=== PATIENT | female | born 1945 | race American Indian/Alaskan Native ===

== ENCOUNTER 2016-06-10 08:40 | Emergency (ER) | payer MEDICARE, OTHER ==
[2016-06-10 08:59] VITALS: PULSE 81; RESP 20
[2016-06-10 10:36] VITALS: BP 175/90; TEMP 97.8; O2SAT 98
--- NOTE | 2016-06-10 10:54 | C.PDOC ---
History Of Present Illness 71 y/o female presents to the ED with complains of chronic right knee pain with exacerbation over the past week. Pt denies fall or new trauma. Pt is scheduled to have surgery in future for cartilage replacement. Pt denies numbness, weakness, fever or any other complaints. Chief Complaint (Nursing): Back Pain History Per: Patient History/Exam Limitations: no limitations Onset/Duration Of Symptoms: Days Current Symptoms Are (Timing): Still Present Quality Of Discomfort: "Pain" Severity: Moderate Previous Symptoms: Chronic Pain Associated Symptoms: None Recent travel outside of the [place]: No Past Medical History Reviewed: Historical Data, Nursing Documentation, Vital Signs Vital Signs: Last Vital Signs Temp 97.8 F 06/10/16 10:34 Pulse 81 06/10/16 10:34 Resp 20 06/10/16 10:34 BP 175/90 H 06/10/16 10:34 Pulse Ox 98 06/10/16 10:55 - Medical History PMH: Bronchitis, COPD, HTN - [facility] Procedures CYSTOCELE REPAIR (09/14/97) CYSTOGRAM NEC (07/06/97) CYSTOMETROGRAM (07/06/97) CYSTOSCOPY NEC (09/14/97) OTHER CYSTOSTOMY (09/14/97) SUPRAPUBIC SLING OP (09/14/97) Family History: States: Unknown Family Hx - Social History Hx Alcohol Use: No Hx Substance Use: No - Immunization History Hx Tetanus Toxoid Vaccination: Yes Hx Influenza Vaccination: Yes Hx Pneumococcal Vaccination: Yes Review Of Systems Except As Marked, All Systems Reviewed And Found Negative. Constitutional: Negative for: Fever Musculoskeletal: Positive for: Other (right knee pain) Neurological: Negative for: Weakness, Numbness Physical Exam - Physical Exam Appears: Non-toxic, No Acute Distress Skin: Warm, Dry, No Rash Head: Atraumatic, Normacephalic Extremity: Capillary Refill (<2 seconds), No Deformity, Other (chronic swollen right knee joint, creppitus noted with flexion and extension) Pulses: Right Dorsalis Pedis: Normal Neurological/Psych: Oriented x3, Normal Speech, Normal Motor, Normal Sensation ED Course And Treatment O2 Sat by Pulse Oximetry: 98 (on room air) Pulse Ox Interpretation: Normal Disposition - [facility] - Disposition: HOME/ ROUTINE Disposition Time: 09:30 Condition: GOOD Additional Instructions: Thank you for letting us take care of you today. Your provider was Dr. Young. You were treated for chronic knee pain. The emergency medical care you received today was directed at your acute symptoms. If you were prescribed any medication, please fill it and take as directed. It may take several days for your symptoms to resolve. Return to the Emergency Department if your symptoms worsen, do not improve, or if you have any other problems. Please contact your doctor or call one of the physicians/clinics you have been referred to that are listed on the Patient Visit Information form that is included in your discharge packet. Bring any paperwork you were given at discharge with you along with any medications you are taking to your follow up visit. Our treatment cannot replace ongoing medical care by a primary care provider (PCP) outside of the emergency department. Thank you for allowing the [facility] team to be part of your care today. Follow up with your doctor on Sunday as scheduled for re-evaluation. Prescriptions: Cyclobenzaprine [Cyclobenzaprine HCl] 10 mg PO Q8 PRN #20 tab PRN Reason: Muscle Spasm Ibuprofen [Motrin] 600 mg PO Q6 PRN #20 tab PRN Reason: Pain, Moderate (4-7) Instructions: Knee Pain (ED) - Clinical Impression Clinical Impression: Right knee pain - Scribe Statement The provider has reviewed the documentation as recorded by the Brenden Duarte Provider Attestation: All medical record entries made by the Brenden were at my direction and personally dictated by me. I have reviewed the chart and agree that the record accurately reflects my personal performance of the history, physical exam, medical decision making, and the department course for this patient. I have also personally directed, reviewed, and agree with the discharge instructions and disposition.
== END 2016-06-10 10:33 | disposition home or self-care (01) ==
LOC: C.ER 08:40
DX: M25.561 Pain in right knee (principal)
CPT/HCPCS: 96372; 99283; J1885

== ENCOUNTER 2017-04-11 08:23 | Inpatient (IN) | payer MEDICARE ==
[2017-03-16 09:10] VITALS: BMI 27.3
[2017-04-11] MEDS ORDERED: Propofol 10 mg/ml Inj (20 ML) ONE ×2 (12:22→12:56)
[2017-04-11] MEDS ORDERED: Rocuronium 10 mg/ml (5 ml) ONE ×2 (12:30→12:57)
[2017-04-11] MEDS ORDERED: Bupivacaine Liposomal Inj 20 ml INFIL ONE (12:32)
[2017-04-11] MEDS ORDERED: ceFAZolin IV 2 gm in Dextrose 2 GM/50 ML BAG IVPB ONE (12:37)
[2017-04-11] MEDS ORDERED: Sodium Chloride 0.9% 60 ML IV ONE (12:37)
[2017-04-11] MEDS ORDERED: Bacitracin 150,000 UNIT in Sodium Chloride 0.9% Irrig 3,000 ML IR SCH (12:45)
[2017-04-11] MEDS ORDERED: Midazolam 2 MG/2 ML VIAL ONE (12:56)
[2017-04-11] MEDS ORDERED: ceFAZolin IV 1 gm in Dextrose 1 GM/50 ML BAG IVPB SCH (13:00)
[2017-04-11] MEDS ORDERED: Sodium Chloride 0.9% 1,000 ML IV SCH (13:00)
[2017-04-11] MEDS ORDERED: Morphine 4 MG/ML VIAL ONE (13:54)
[2017-04-11] MEDS ORDERED: Neostigmine Methylsulfate 3mg/3ml Syringe IV ONE (15:32)
[2017-04-11] MEDS ORDERED: Bupivacaine HCl 0.25% PF (10 ml) Inj ONE ×2 (15:57→15:58)
--- NOTE | 2017-04-11 17:18 | PCM.ANESB7 ---
Adductor Canal Block - Adductor Canal Block Date of Procedure: 04/11/17 Anesthiologist: jordan Pre-Procedure Diagnosis: right knee oa` Post-Procedure Diagnosis: same Procedure Performed: Adductor Canal Block Right - Procedure Adductor Canal Block: The procedure was explained to the patient that it is for the post-operative pain management. Consent was obtained after a thorough discussion with the patient regarding the benefits and possible complications of local anesthetic adductor canal block of the femoral nerve. Standard monitors, as defined by the ASA, were applied to the patient. Time-out was held with the circulating nurse to confirm the appropriate block. After applying supplemental oxygen and administering IV Sedation as needed, the patient was placed in supine position with and the operative leg was flexed slightly at the knee and externally rotated as needed, and was kept anatomically stable. The mid-thigh of the ___ lower extremity was exposed. The ultrasound transducer was then applied transversely along the medial aspect, about midway down the thigh and the femoral artery and vein were identified in appropriate relation with the sartorius muscle. At this time, the femoral nerve was visualized lateral to the femoral artery within the canal. After thorough identification, this area area was prepped with Chloroprep solution three times and 1 % Lidocaine was injected subcutaneously for topical anesthesia. After negative aspiration, ___5__cc of __.25___% bupivicaine was injected and this was followed with ___15___ cc of ___.25____ % bupvicaine . Under ultrasound guidance the local anesthetics were observed spreading around the femoral nerve. The needle was removed intact and sterile dressing was applied. The patient had stable vital signs, was conscious and in no apparent distress. The patient tolerated the femoral nerve block well with stable vital signs and was prepared for subsequent surgery
--- NOTE | 2017-04-11 17:36 | RAD ---
Indication: Status post right total knee arthroplasty Comparison: Bilateral knee radiographs performed 03/16/17. Two views, left knee Findings: The patient is status post left knee total arthroplasty. Alignment appears satisfactory. Soft tissue swelling, subcutaneous emphysema, drainage catheter, and surgical naz compatible with recent postoperative history Impression: Status post left knee arthroplasty as above.
[2017-04-11] MEDS ORDERED: Sodium Chloride 0.9% 1,000 ML IV ONE (20:00)
[2017-04-11] MEDS: Sodium Chloride 0.9% 1,000 ML IV SCH (20:49)
[2017-04-11] MEDS: ceFAZolin IV 2 gm in Dextrose 2 GM/50 ML BAG IVPB SCH (22:17)
[2017-04-12] MEDS: Oxycodone/Acetaminophen 5/325 mg Tab PO PRN ×3 (01:01→16:44)
[2017-04-12] MEDS: Sodium Chloride 0.9% 1,000 ML IV SCH ×2 (04:30→16:15)
[2017-04-12] MEDS: ceFAZolin IV 2 gm in Dextrose 2 GM/50 ML BAG IVPB SCH ×3 (05:51→21:20)
[2017-04-12] MEDS ORDERED: Fluticasone-Salmeterol 250-50mcg Diskus INH SCH (08:00)
[2017-04-12] MEDS: Enoxaparin 40 mg Syringe SC SCH (09:21)
--- NOTE | 2017-04-12 10:07 | CP.PCM.PN ---
Subjective - Date & Time of Evaluation Date of Evaluation: 04/12/17 Time of Evaluation: 10:04 - Subjective Subjective: PGY [address] Blue 72 year old female with past medical history of COPD and HTN is s/p right TKR. Pt is seen and examined at bedside. No acute events overnight. Pt states that she is passing gas this morning. Denies having any CP, SOB, abd pain, N/V/D/C. Patient has about 2-3/10 pain in right LE. 12 point ROS negative except for the above mentioned. PMHx: stated above Sx: right TKR Social: denies tobacco, ETOH or drug use Objective - Vital Signs/Intake and Output Vital Signs (last 24 hours): Temp Pulse Resp BP Pulse Ox 99.1 F 80 20 124/64 99 04/12/17 08:34 04/12/17 08:34 04/12/17 08:34 04/12/17 08:34 04/12/17 08:34 Intake and Output: 04/12/17 04/12/17 06:59 18:59 Intake Total 990 Output Total 1175 Balance -185 - Medications Medications: Current Medications Acetaminophen (Tylenol 325mg Tab) 650 mg PO Q4 PRN PRN Reason: Fever 101 degrees fahrenheit Amlodipine Besylate (Norvasc) 10 mg PO DAILY [facility] Last Admin: 04/12/17 09:21 Dose: 10 mg Enoxaparin Sodium (Lovenox) 40 mg SC DAILY [facility] Last Admin: 04/12/17 09:21 Dose: 40 mg Sodium Chloride (Sodium Chloride 0.9%) 1,000 mls @ 0 mls/hr IV .Q0M [facility]RE[facility] PRN Reason: Per Protocol Cefazolin Sodium/Dextrose (Ancef Iv 2 Gm Duplex) 2 gm in 50 mls @ 100 mls/hr IVPB Q8H [facility] Last Admin: 04/12/17 05:51 Dose: 100 mls/hr Sodium Chloride (Sodium Chloride 0.9%) 1,000 mls @ 100 mls/hr IV .Q10H [facility] Last Admin: 04/12/17 04:30 Dose: Not Given Losartan Potassium (Cozaar) 100 mg PO DAILY [facility] Last Admin: 04/12/17 09:21 Dose: 100 mg Morphine Sulfate (Morphine) 2 mg IVP Q4H PRN PRN Reason: Pain, severe (8-10) Ondansetron HCl (Zofran Inj) 4 mg IVP ONCE PRN PRN Reason: Nausea/Vomiting Oxycodone/Acetaminophen (Percocet 5/325 Mg Tab) 2 tab PO Q4H PRN PRN Reason: Pain, severe (8-10) Stop: 04/14/17 12:49 Last Admin: 04/12/17 05:45 Dose: 2 tab Fluticasone/Salmeterol (Advair Diskus 250/50) 1 puff INH RQ12 [facility] Tiotropium [place] (Spiriva Inhalation Handihaler Device) 0 inhaler INH RQD TRE[facility]ON - Constitutional Appears: Non-toxic, No Acute Distress - Head Exam Head Exam: ATRAUMATIC - ENT Exam ENT Exam: Mucous Membranes Moist - Respiratory Exam Respiratory Exam: Clear to Ausculation Bilateral. absent: Accessory Muscle Use , Rhonchi, Wheezes, Respiratory Distress - Cardiovascular Exam Cardiovascular Exam: REGULAR RHYTHM, +S1, +S2 - GI/Abdominal Exam GI & Abdominal Exam: Soft, Normal Bowel Sounds. absent: Distended, Firm, Guarding, Rigid, Tenderness, Organomegaly - Extremities Exam Extremities Exam: absent: Calf Tenderness, Pedal Edema, Tenderness Additional comments: full ROM in lower extremities. no tenderness to palpation on bilateral knees. - Neurological Exam Neurological Exam: Alert, Awake - Psychiatric Exam Psychiatric exam: Normal Affect, Normal Mood - Skin Skin Exam: Dry, Intact, Normal Color, Warm Assessment and Plan - Assessment and Plan (Free Text) Assessment: 72 year old female with past medical history of HTN and COPD is s/p right TKR POD #1. Right Total Knee Replacement - POD #1 - Pain management with percocet 2 tabs q4 morphine 2 mg IVP q4 prn. Patient also received femoral nerve block - Zofran prn for nausea - PT/OT ordered HTN - Continue home medications: amlodipine and cozaar - will continue to monitor COPD - Continue Advair and spiriva - incentive spirometer is ordered. Explained to pt the importance of using it regularly. Prophylaxis - pepcid - lovenox, SCDs Case discussed with attending, Dr. Blue. All managements and orders per Dr. Blue
[2017-04-12 11:26] LABS: BASO % 0.5 % (0.0-2.0); EOS # 0.1 K/uL (0.0-0.7); EOS % 1.6 % (0.0-4.0); LYMPH # 2.2 K/uL (1.0-4.3); LYMPH % 28.9 % (20.0-40.0); MEAN CELL VOLUME 86.5 fL (81.0-99.0); MEAN CORPUSCULAR HGB CONC 33.6 g/dL (33.0-37.0); MEAN PLATELET VOLUME 9.2 fL (7.2-11.7); MONO % 13.1 % (0.0-10.0); NEUT # 4.2 K/uL (1.8-7.0); NEUT % 55.9 % (50.0-75.0); RBC 3.62 Mil/uL (3.80-5.20)
[2017-04-12 11:51] LABS: HEMOGLOBIN 10.5 g/dL (11.0-16.0); WHITE BLOOD COUNT 7.6 K/uL (4.8-10.8)
[2017-04-12 11:52] LABS: ALBUMIN 2.9 g/dL (3.5-5.0); ALT/SGPT 30 U/L (9-52); AST/SGOT 22 U/L (14-36); BLOOD UREA NITROGEN 19 mg/dL (7-17); CALCIUM 8.3 mg/dl (8.6-10.4); GFR AFRICAN-AMERICAN > 60; GFR NON-AFRICAN AMERICAN 55
--- NOTE | 2017-04-12 13:42 | CP.PCM.PN ---
Subjective - Date & Time of Evaluation Date of Evaluation: 04/12/17 Time of Evaluation: 13:40 - Subjective Subjective: Patient states pain is controlled, complaining of nausea/no vomiting Objective - Vital Signs/Intake and Output Vital Signs (last 24 hours): Temp Pulse Resp BP Pulse Ox 99.1 F 80 20 124/64 99 04/12/17 08:34 04/12/17 08:34 04/12/17 08:34 04/12/17 08:34 04/12/17 08:34 Intake and Output: 04/12/17 04/12/17 06:59 18:59 Intake Total 990 Output Total 1175 Balance -185 - Medications Medications: Current Medications Acetaminophen (Tylenol 325mg Tab) 650 mg PO Q4 PRN PRN Reason: Fever 101 degrees fahrenheit Amlodipine Besylate (Norvasc) 10 mg PO DAILY [facility] Last Admin: 04/12/17 09:21 Dose: 10 mg Enoxaparin Sodium (Lovenox) 40 mg SC DAILY [facility] Last Admin: 04/12/17 09:21 Dose: 40 mg Famotidine (Pepcid) 20 mg PO DAILY [facility] Sodium Chloride (Sodium Chloride 0.9%) 1,000 mls @ 0 mls/hr IV .Q0M [facility] PRN Reason: Per Protocol Cefazolin Sodium/Dextrose (Ancef Iv 2 Gm Duplex) 2 gm in 50 mls @ 100 mls/hr IVPB Q8H [facility] Last Admin: 04/12/17 13:17 Dose: 100 mls/hr Sodium Chloride (Sodium Chloride 0.9%) 1,000 mls @ 100 mls/hr IV .Q10H [facility] Last Admin: 04/12/17 04:30 Dose: Not Given Losartan Potassium (Cozaar) 100 mg PO DAILY [facility] Last Admin: 04/12/17 09:21 Dose: 100 mg Morphine Sulfate (Morphine) 2 mg IVP Q4H PRN PRN Reason: Pain, severe (8-10) Ondansetron HCl (Zofran Inj) 4 mg IVP Q6H PRN PRN Reason: Nausea/Vomiting Last Admin: 04/12/17 10:48 Dose: 4 mg Oxycodone/Acetaminophen (Percocet 5/325 Mg Tab) 2 tab PO Q4H PRN PRN Reason: Pain, severe (8-10) Stop: 04/14/17 12:49 Last Admin: 04/12/17 05:45 Dose: 2 tab Fluticasone/Salmeterol (Advair Diskus 250/50) 1 puff INH RQ12 [facility]ON Tiotropium [place] (Spiriva Inhalation Handihaler Device) 0 inhaler INH RQD TREVON - Labs Labs: 04/12/17 11:15 04/12/17 11:15 - Extremities Exam Additional comments: hemovac 100 left intact +ROM ankle/toes, sensation intact +DP/PT pulses calves soft NT neg homans Assessment and Plan (1) Primary osteoarthritis of right knee Assessment & Plan: POD#1 s/p right TKR pt/ot vte proph d/c planning labs in am d/w DR. Brock, agrees with above Status: Acute
[2017-04-12 14:01] LABS: HEMOGLOBIN 10.8 g/dL (11.0-16.0); MEAN CELL VOLUME 86.8 fL (81.0-99.0); MEAN CORPUSCULAR HEMOGLOBIN 28.3 pg (27.0-31.0); MEAN CORPUSCULAR HGB CONC 32.6 g/dL (33.0-37.0); MEAN PLATELET VOLUME 8.9 fL (7.2-11.7); RBC 3.82 Mil/uL (3.80-5.20); RED CELL DISTRIBUTION WIDTH 15.2 % (11.5-14.5); WHITE BLOOD COUNT 9.2 K/uL (4.8-10.8)
[2017-04-12 14:06] LABS: INR 1.1; PROTHROMBIN TIME 12.6 SECONDS (9.7-12.2)
[2017-04-12 14:20] LABS: ALB/GLOB RATIO 1.1 (1.0-2.1); ALBUMIN 3.2 g/dL (3.5-5.0); ALT/SGPT 25 U/L (9-52); AST/SGOT 22 U/L (14-36); BLOOD UREA NITROGEN 20 mg/dL (7-17); CALCIUM 8.2 mg/dl (8.6-10.4); GFR AFRICAN-AMERICAN > 60; GFR NON-AFRICAN AMERICAN 55
[2017-04-13] MEDS: Sodium Chloride 0.9% 1,000 ML IV SCH (00:27)
[2017-04-13] MEDS: Oxycodone/Acetaminophen 5/325 mg Tab PO PRN ×3 (00:52→13:35)
[2017-04-13] MEDS: ceFAZolin IV 2 gm in Dextrose 2 GM/50 ML BAG IVPB SCH ×3 (05:52→23:10)
--- NOTE | 2017-04-13 07:31 | CON ---
DATE: 04/12/2017 HISTORY OF PRESENT ILLNESS: This is a 72-year-old female, admitted to the hospital with chief complaint of right knee replacement. The patient has history of hypertension and history of osteoarthritis. MEDICATIONS: Norvasc 10 mg daily. PHYSICAL EXAMINATION GENERAL: The patient is awake, alert, and oriented. VITAL SIGNS: Temperature is 98, pulse 90. HEENT: Within normal limits. NECK: Supple. CHEST: Symmetrical. HEART: Regular. ABDOMEN: Soft. EXTREMITIES: No edema. ASSESSMENT AND PLAN: The patient suffers from right knee replacement, osteoarthritis, and hypertension. We will restart Norvasc 10 mg daily. Monitor blood pressure. Physical therapy. Lizette Blue MD
[2017-04-13 08:20] LABS: BASO % 0.5 % (0.0-2.0); EOS # 0.2 K/uL (0.0-0.7); EOS % 1.7 % (0.0-4.0); HEMOGLOBIN 9.7 g/dL (11.0-16.0); LYMPH # 2.1 K/uL (1.0-4.3); LYMPH % 21.4 % (20.0-40.0); MEAN CELL VOLUME 86.6 fL (81.0-99.0); MEAN CORPUSCULAR HEMOGLOBIN 28.9 pg (27.0-31.0); MEAN CORPUSCULAR HGB CONC 33.4 g/dL (33.0-37.0); MEAN PLATELET VOLUME 9.2 fL (7.2-11.7); MONO # 1.1 K/uL (0.0-0.8); MONO % 11.6 % (0.0-10.0); NEUT # 6.4 K/uL (1.8-7.0); NEUT % 64.8 % (50.0-75.0); RBC 3.35 Mil/uL (3.80-5.20); RED CELL DISTRIBUTION WIDTH 14.7 % (11.5-14.5); WHITE BLOOD COUNT 9.8 K/uL (4.8-10.8)
[2017-04-13 08:26] LABS: ALBUMIN 2.9 g/dL (3.5-5.0); ALT/SGPT 27 U/L (9-52); AST/SGOT 18 U/L (14-36); BLOOD UREA NITROGEN 15 mg/dL (7-17); CALCIUM 8.5 mg/dl (8.6-10.4); GFR AFRICAN-AMERICAN > 60; GFR NON-AFRICAN AMERICAN > 60
--- NOTE | 2017-04-13 08:30 | RAD ---
Chest x-ray single frontal view History: Postop fever. Comparison: 03/16/2017 Findings: Mild venous congestion. Right hilar prominence. Tortuous ectatic aorta. Cardiomegaly. Degenerative changes in the spine and shoulders. Impression: Mild venous congestion. Right hilar prominence. Tortuous ectatic aorta. Cardiomegaly.
--- NOTE | 2017-04-13 09:13 | CP.PCM.PN ---
Subjective - Date & Time of Evaluation Date of Evaluation: 04/13/17 Time of Evaluation: 09:12 - Subjective Subjective: PGY2 progress note for Dr. Blue Pt seen and examined at bedside. Pt was noted to be febrile yesterday with temp of 101 degrees. Afebirle this morning. pt complains of right knee pain. Also complains of increased urinary frequency. Denies having any CP, SOB, abd pain, N/V/D/C, F/C. Tolerating diet and had BM this am. Objective - Vital Signs/Intake and Output Vital Signs (last 24 hours): Temp Pulse Resp BP Pulse Ox 98.5 F 88 18 198/88 H 98 04/13/17 07:50 04/13/17 07:50 04/13/17 07:50 04/13/17 07:50 04/13/17 07:50 Intake and Output: 04/13/17 04/13/17 06:59 18:59 Intake Total 1100 Output Total 825 Balance 275 - Medications Medications: Current Medications Acetaminophen (Tylenol 325mg Tab) 650 mg PO Q4 PRN PRN Reason: Fever 101 degrees fahrenheit Last Admin: 04/13/17 02:43 Dose: 650 mg Amlodipine Besylate (Norvasc) 10 mg PO DAILY [facility] Last Admin: 04/12/17 09:21 Dose: 10 mg Enoxaparin Sodium (Lovenox) 40 mg SC DAILY [facility] Last Admin: 04/12/17 09:21 Dose: 40 mg Famotidine (Pepcid) 20 mg PO DAILY [facility] Cefazolin Sodium/Dextrose (Ancef Iv 2 Gm Duplex) 2 gm in 50 mls @ 100 mls/hr IVPB Q8H [facility] Last Admin: 04/13/17 05:52 Dose: 100 mls/hr Losartan Potassium (Cozaar) 100 mg PO DAILY [facility] Last Admin: 04/12/17 09:21 Dose: 100 mg Morphine Sulfate (Morphine) 2 mg IVP Q4H PRN PRN Reason: Pain, severe (8-10) Ondansetron HCl (Zofran Inj) 4 mg IVP Q6H PRN PRN Reason: Nausea/Vomiting Last Admin: 04/12/17 10:48 Dose: 4 mg Oxycodone/Acetaminophen (Percocet 5/325 Mg Tab) 2 tab PO Q4H PRN PRN Reason: Pain, severe (8-10) Stop: 04/14/17 12:49 Last Admin: 04/13/17 00:52 Dose: 2 tab Fluticasone/Salmeterol (Advair Diskus 250/50) 1 puff INH RQ12 [facility] Tiotropium [place] (Spiriva Inhalation Handihaler Device) 0 inhaler INH RQD [facility]ON - Labs Labs: 04/13/17 08:05 04/13/17 08:05 PT 12.6 SECONDS (9.7-12.2) H 04/12/17 13:48 INR 1.1 04/12/17 13:48 - Constitutional Appears: Non-toxic, No Acute Distress - Head Exam Head Exam: ATRAUMATIC, NORMOCEPHALIC - ENT Exam ENT Exam: Mucous Membranes Moist - Respiratory Exam Respiratory Exam: Clear to Ausculation Bilateral. absent: Rales, Rhonchi, Wheezes - Cardiovascular Exam Cardiovascular Exam: REGULAR RHYTHM, +S1, +S2. absent: Gallop, Rubs, Murmur - GI/Abdominal Exam GI & Abdominal Exam: Soft, Normal Bowel Sounds. absent: Distended, Firm, Guarding, Rigid, Tenderness, Organomegaly - Extremities Exam Extremities Exam: absent: Pedal Edema, Tenderness - Neurological Exam Neurological Exam: Alert, Awake, Oriented x3 - Psychiatric Exam Psychiatric exam: Normal Affect, Normal Mood - Skin Skin Exam: Dry, Intact, Normal Color, Warm Assessment and Plan - Assessment and Plan (Free Text) Assessment: 72 year old female with past medical history of HTN and COPD is s/p right TKR POD #1. Right Total Knee Replacement - POD #1 - Pain management with percocet 2 tabs q4 morphine 2 mg IVP q4 prn. Patient also received femoral nerve block - Zofran prn for nausea - PT/OT ordered Post-operative fever - Pt advised to use incentive spirometer regularly. - CXR this am showed mild venous congestion, right hilar prominence and cardiomegaly - Will check urinalysis HTN - Pt hypertensive this am. Given hydralzine 10 mg IVP - Started pt on HCTZ 12.5 mg qd - Continue home medications: amlodipine and cozaar - will continue to monitor - d/bin IV fluids COPD - Continue Advair and spiriva Prophylaxis - pepcid - lovenox, SCDs Case discussed with attending, Dr. Blue. All managements and orders per Dr. Blue
[2017-04-13] MEDS: Enoxaparin 40 mg Syringe SC SCH (09:38)
[2017-04-13 12:37] LABS: SQUAMOUS EPITHIAL 6 /hpf (0-5); URINE BACTERIA RARE (<OCC); URINE BILIRUBIN NEGATIVE (NEGATIVE); URINE BLOOD NEGATIVE (NEGATIVE); URINE CLARITY Hazy (Clear); URINE COLOR Yellow (YELLOW); URINE GLUCOSE (UA) NORMAL (Normal); URINE LEUKOCYTE ESTERASE NEG Leu/uL (Negative); URINE NITRATE NEGATIVE (NEGATIVE); URINE PROTEIN 1+ mg/dL (NEGATIVE); URINE UROBILINOGEN NORMAL mg/dL (0.2-1.0)
[2017-04-13 16:16] VITALS: RESP 20
[2017-04-14] MEDS: ceFAZolin IV 2 gm in Dextrose 2 GM/50 ML BAG IVPB SCH ×2 (05:15→13:14)
[2017-04-14 07:57] VITALS: O2SAT 98
[2017-04-14] MEDS: Enoxaparin 40 mg Syringe SC SCH (09:44)
[2017-04-14] MEDS: Oxycodone/Acetaminophen 5/325 mg Tab PO PRN (09:49)
--- NOTE | 2017-04-14 10:46 | PCM.SURG1 ---
Surgeon's Initial Post Op Note - Surgeon's Notes Surgeon: Mary Tobias MD Court Administrator: Miguel Regalado PA-C Type of Anesthesia: General Endo, Block Regional Pre-Operative Diagnosis: Right knee #1 DJD. #2 MFC AVN. #3 synovitis. #4 varus Operative Findings: Right knee #1 DJD. #2 MFC AVN. #3 synovitis. #4 varus. # 5 partial patellar tendon tear Post-Operative Diagnosis: Right knee #1 DJD. #2 MFC AVN. #3 synovitis. #4 varus. #5 partial patellar tendon tear Operation Performed: Right knee #1 Total knee arthroplasty. #2 patellar tendon primary repair Specimen/Specimens Removed: Specimen= bee cuts to path per hospital protocol. tourniquet time = 98 min at 300mmHg. Complications= none. Implants= Hashplexacta GMK TKA sphere system, size 5 cemented distal femur, size 5 cemented tibial base plate, size 2 cemented patellar button, size 5 14mm poly spacer. Biomet cobalt cement w/ abx. Arthrex 4.75 biocompostie swivel lock anchors x2 & fiberwire suture for patellar tendon repair Estimated Blood Loss: EBL {In ML}: 25 Blood Products Given: N/A Drains Used: Hemovac Post-Op Condition: Good Date of Surgery/Procedure: 04/11/17 Time of Surgery/Procedure: 17:00
[2017-04-14 11:38] LABS: EOS # 0.1 K/uL (0.0-0.7); HEMOGLOBIN 9.6 g/dL (11.0-16.0); MEAN CORPUSCULAR HGB CONC 34.2 g/dL (33.0-37.0); MONO # 0.9 K/uL (0.0-0.8); MONO % 9.5 % (0.0-10.0)
[2017-04-14 11:42] LABS: ALT/SGPT 19 U/L (9-52); AST/SGOT 17 U/L (14-36); BLOOD UREA NITROGEN 14 mg/dL (7-17); CALCIUM 8.7 mg/dl (8.6-10.4); GFR AFRICAN-AMERICAN > 60; GFR NON-AFRICAN AMERICAN > 60
[2017-04-14 11:47] LABS: BASO % 0.4 % (0.0-2.0); EOS % 0.7 % (0.0-4.0); LYMPH # 1.3 K/uL (1.0-4.3); LYMPH % 13.5 % (20.0-40.0); MEAN CELL VOLUME 86.4 fL (81.0-99.0); MEAN CORPUSCULAR HEMOGLOBIN 29.6 pg (27.0-31.0); MEAN PLATELET VOLUME 9.6 fL (7.2-11.7); NEUT # 7.1 K/uL (1.8-7.0); NEUT % 75.9 % (50.0-75.0); RBC 3.25 Mil/uL (3.80-5.20); RED CELL DISTRIBUTION WIDTH 14.4 % (11.5-14.5); WHITE BLOOD COUNT 9.4 K/uL (4.8-10.8)
--- NOTE | 2017-04-14 14:52 | CP.PCM.PN ---
Subjective - Date & Time of Evaluation Date of Evaluation: 04/14/17 Time of Evaluation: 14:46 - Subjective Subjective: PT CLEARED FOR D/C TO [facility] TODAY PER DR. VIRAMONTES. PRIMARY RN DAPHNEY SPOKE W DR. CARIAS REGARDING D/C PLAN. ORTHO WOULD LIKE PT D/C [facility]. PT CURRENTLY ON CPM AND TOLERATING WELL.. DISCUSSED WITH PT THAT SHE WILL CONTINUE IV ABX AT [facility] FOR 5 MORE DAYS; CHANGED ANCEF TO ROCEPHIN 1 GM IV QD---TO BE DC WITH HEPLOCK IN PLACE. STRONGLY ENCOURAGED USING INCENTIVE SPIROMETRY EVERY HOUR TO PREVENT PNA. FOR ORTHO F/U IN 10-14 DAYS. REPEAT CBC FOR PLATELET COUNT; [facility] STAFF TO NOTIFY DR. VIRAMONTES OF RESULTS. TO ARRANGE TRANSPORTATION TO [facility] TODAY. NO FURTHER ORDERS. Objective - Vital Signs/Intake and Output Vital Signs (last 24 hours): Temp Pulse Resp BP Pulse Ox 98.4 F 97 H 20 186/80 H 98 04/14/17 07:00 04/14/17 07:00 04/14/17 07:00 04/14/17 07:00 04/14/17 07:00 - Medications Medications: Current Medications Acetaminophen (Tylenol 325mg Tab) 650 mg PO Q4 PRN PRN Reason: Fever 101 degrees fahrenheit Last Admin: 04/13/17 02:43 Dose: 650 mg Amlodipine Besylate (Norvasc) 10 mg PO DAILY [facility] Last Admin: 04/14/17 09:44 Dose: 10 mg Enoxaparin Sodium (Lovenox) 40 mg SC DAILY [facility] Last Admin: 04/14/17 09:44 Dose: 40 mg Famotidine (Pepcid) 20 mg PO DAILY [facility] Last Admin: 04/14/17 09:44 Dose: 20 mg Hydrochlorothiazide (Microzide) 12.5 mg PO DAILY [facility] Last Admin: 04/14/17 09:44 Dose: 12.5 mg Cefazolin Sodium/Dextrose (Ancef Iv 2 Gm Duplex) 2 gm in 50 mls @ 100 mls/hr IVPB Q8H [facility] Last Admin: 04/14/17 13:14 Dose: 100 mls/hr Losartan Potassium (Cozaar) 100 mg PO DAILY [facility] Last Admin: 04/14/17 09:44 Dose: 100 mg Morphine Sulfate (Morphine) 2 mg IVP Q4H PRN PRN Reason: Pain, severe (8-10) Ondansetron HCl (Zofran Inj) 4 mg IVP Q6H PRN PRN Reason: Nausea/Vomiting Last Admin: 04/13/17 09:38 Dose: 4 mg Fluticasone/Salmeterol (Advair Diskus 250/50) 1 puff INH RQ12 TRE[facility]ON Tiotropium [place] (Spiriva Inhalation Handihaler Device) 0 inhaler INH RQD TREVON - Labs Labs: 04/14/17 11:22 04/14/17 11:22 PT 12.6 SECONDS (9.7-12.2) H 04/12/17 13:48 INR 1.1 04/12/17 13:48
[2017-04-14 15:54] VITALS: BP 168/84; PULSE 74; TEMP 98
--- NOTE | 2017-04-26 21:23 | OP ---
PROCEDURE DATE: 04/11/2017 PREOPERATIVE DIAGNOSES: Right knee, 1. Degenerative joint disease. 2. Medial femoral condyle avascular necrosis. 3. Synovitis. 4. Varus deformity. POSTOPERATIVE DIAGNOSES: Right knee, 1. Degenerative joint disease. 2. Medial femoral condyle avascular necrosis. 3. Synovitis. 4. Varus deformity. 5. Partial patellar tendon tear. PROCEDURE: Right Knee, 1. Total knee arthroplasty. 2. Patellar tendon primary repair. SURGEON: Mary Tobias MD ANIMAL CYTOLOGIST: Miguel Regalado PA-C JUSTIFICATION FOR ANIMAL CYTOLOGIST: Miguel Regalado is a certified physician health care assistant whose skilled surgical services was an absolute necessity for successful completion of the procedure as he provided skilled surgical assistance with positioning of the patient, positioning of extremity, management of the surgical hodge, retraction of the neurovascular structures, preparation of distal femoral cuts, preparation of proximal tibia cuts, trial implants, placement of final implants with good and proper cement technique, primary repair of patellar tendon partial tear/avulsion, wound closure, fitting and placement of knee immobilizer. Miguel Regalado was present for the entire case and it was an absolute necessity for the successful completion of the procedure. TYPE OF ANESTHESIA: General endotracheal anesthesia with a postop regional nerve block placed by Anesthesia staff in PACU. SPECIMEN: Bony cuts sent to pathology per hospital protocol. TOURNIQUET TIME: 98 minutes at 300 mmHg. COMPLICATIONS: None. DISPOSITION: The patient was extubated and transferred to PACU in stable condition and tolerated the procedure well. ESTIMATED BLOOD LOSS: 25 mL. DRAINS: Hemovac drain x1. IMPLANTS: 1. Medacta GMK total knee arthroplasty sphere system consisting of a size 5 cemented distal femur, size 5 cemented tibial base plate, size 2 cemented patellar button, size 5 of 14 mm polyethelene spacer. 2. Biomet cobalt cement with antibiotics. 3. Arthrex 4.75 BioComposite SwiveLock anchors x2 and FiberWire for the patellar tendon repair. DISPOSITION: The patient was extubated in satisfactory and stable condition and tolerated the procedure well. INDICATIONS FOR SURGERY: The patient is a 72-year-old female with a past medical history significant for hypertension, hyperlipidemia, COPD, who presents to the office for the first time under my care on 03/20/2015 with right knee pain much worse than left knee pain for 2 years. Prior to being under my care, she had already done one year of conservative treatment for what she knew already was early degenerative joint disease and medial femoral condyle changes. She has undergone multiple cortisone injections and hyaluronic acid injection series, but she was not familiar with the details of which injection or even who the orthopedic surgeon was. Physical examination revealed significant crepitance and pain localized to the medial joint line with ability to establish full range of motion and very high activity level and independence. We started with initial injections and she was referred to physical therapy and obtained a brace. She was compliant with all conservative treatment recommendations. She underwent MRI of the right knee at [facility] on 08/26/2015 which was read as, 1. Complex tear seen at the level of posterior horn of medial meniscus. 2. Focal cartilage loss overlying the mid-medial femoral condyle. Curvilinear focal signal abnormalities seen at the articular surface of the mid-medial femoral condyle with exuberant surrounding reactive edema suggestive of subchondral fracturing versus stress injury versus osteochondral change versus spontaneous osteonecrosis of the knee. 3. Linear increased signal at the anterior root and horn of the lateral meniscus demonstrating apparent extension to the superior articular surface suggestive of a small tear. 4. High-grade sprain of MCL. 5. High-grade sprain of medial patellar retinaculum. 6. Cartilage thinning and loss overlying the mid-medial proximal tibia with signal change at the adjacent marrow of the mid-medial proximal tibia demonstrating decreased T1 signal and mild reactive edema suggestive of severe osteochondral change. 7. Focal cartilage thinning and loss overlying the anterior aspect of the distal tibia at the level of intercondylar notch demonstrating decreased T1 signal and increased STIR signal suggestive of subchondral fracturing versus stress injury versus osteochondral change. 8. Moderate suprapatellar joint effusion. I reviewed the MRI findings with the patient and we began to proceed with conservative treatment under my care. X-rays taken in my office and at [facility] revealed that there was loss of the medial joint line at that point in time and progressive AVN changes of the medial femoral condyle. Under my care in terms of conservative treatment, she had undergone almost two years of physical therapy and bracing with no overall improvement, multiple cortisone injections in the office including 08/19/2015, 11/01/2015, 11/29/2015, and 02/20/2017. She was also compliant with Mobic antiinflammatory medication use and compound antiinflammatory pain cream. Each one of the cortisone mixture injections would provide her with near complete resolution of pain. Some injections lasting a few months and some injections only lasting a few weeks. Once she followed up in my office in 02/2017, the x-rays in the office showed clear progression of the AVN and loss of the contour of the articular surface of the medial femoral condyle with a clear defect on the medial femoral condyle seen. Throughout her treatment, we had discussed what type of surgical treatment was best for her in terms of a total knee arthroplasty versus a partial knee replacement versus a biologic cartilage transplant to fill the defective area at the medial femoral condyle. At her age of 72, we decided that the best treatment would be the all in all one surgery to treat. After discussing all the different treatment options, she chose and I agreed with her decision to proceed with a total knee arthroplasty. The risks, benefits and alternatives of the procedure were discussed at length with the patient with the risk including not limited to infection, neurovascular damage, failure of implants, failure of surgery, need for further surgery, need for revision surgery, iatrogenic injury, periprosthetic fracture, development of chronic pain and disability, development of blood clot including DVT and PE, anesthesia reactions including and cardiopulmonary collapse. After answering all of her questions, she stated that she understood the risks and wished to proceed with surgery. She watched surgical animation videos and diagnoses animation videos and stated that she had a good understanding of her diagnoses as well as the procedure to be done. She was referred to primary care physician for preadmission testing and medical and cardiac clearance and the procedure was scheduled at [facility] on 04/11/2017. She underwent the [facility] for the custom cutting guides for the procedure as well from a doctor. PROCEDURE IN DETAIL: The patient was identified in the preoperative holding area and the right knee was marked for surgery. Once again as described above; the risks, benefits and alternatives of the procedure were discussed at length with the patient and an informed consent was obtained. The right knee was marked for surgery. After brief discussion with the anesthesia staff, perioperative IV antibiotics in the form of 2 gm of Ancef were administered and the patient was taken to the operating room, placed in a well-padded operating room table with all bony prominences and superficial neurovascular structures were well padded. An initial time-out was done with the surgeon, anesthesia staff, OR staff, all in agreement with the patient, procedure being done, and the extremity being operated on. General anesthesia was administered without difficulty or complication. A tourniquet was placed high on the right thigh and set to 300 mmHg. General anesthesia was administered without difficulty or complication and examination under anesthesia was then carried out. EXAMINATION UNDER ANESTHESIA: Right knee with no warmth, no swelling, erythema, skin intact, range of motion mildly limited with 3 degrees to 5 degrees flexion contracture with inability to achieve full extension, overall varus deformity, full flexion achieved compared to contralateral knee, no evidence of instability, significant crepitance throughout range of motion, patella with normal tracking but significant crepitance as well, negative anterior drawer, negative posterior drawer, negative Elias, negative reverse Elias, negative pivot shift, negative reverse pivot shift, negative opening to medial or lateral joint line at 0 to 30 degrees varus or valgus stress. CONTINUATION OF PROCEDURE: The right lower extremity was prepped and draped in a standard sterile fashion. The right lower extremity was then exsanguinated and the tourniquet was inflated after a final time-out was done with the surgeon, anesthesia staff, OR staff, and all in agreement with the patient, procedure being done and the extremity being operated on. Once again the right lower extremity was exsanguinated and the tourniquet was inflated to 300 mmHg for a total tourniquet time of 98 minutes. Incision was made to the skin, down to subcutaneous tissue while maintaining good hemostasis as a medial parapatellar approach starting two fingerbreadths above the level of the superior pole of the patella down to the tibial tuberosity. Medial retinaculum was exposed and overlying soft tissue elevated. Sharp incision was made as the medial aspect of the quadriceps tendon in line with the fibers down to the superior pole of the patella, around the patella, down to the patellar tendon in line with the patellar tendon fibers down to the tibial tuberosity. Once the tibial tuberosity was exposed, I began to notice that there was a partial patellar tendon tear/avulsion injury at the tibial tuberosity that would require further attention and for us to exercise caution throughout the procedure as not to complete the patellar tendon tear. This partial patellar tendon tear accomplished approximately 50% of the patellar tendon insertion at the tibial tuberosity. An extensive synovectomy was then carried out after a medial release was carried out as this was a varus deformity. Once the medial release was carried out releasing the deep MCL and medial periosteum, as well as the medial osteophytes, then attention was turned towards preparation of the patella. The patella was everted sideways with caution taken not to complete the patella tendon tear. With the use of the Medacta guide, the patella cut was made with the use of a saw blade establishing a smooth surface. With the use of rongeur, the osteophytes around the patella were resected and patella preparation will be completed towards the end of the case. We then turned our attention to the distal femur after the ACL and PCL were released. The contact points for the custom cutting guides were identified and the overlying cartilage was debrided. The distal femur custom cutting block was then pinned into position and the distal femoral cut was made. A 4-in-1 guide was attached with good external rotation down into the system approximately 3 degrees and the distal cuts were completed being the anterior and posterior and the anterior chamfer and posterior chamfer cuts. A trial of size #5 femur was then impacted into position and had a good fit. Trial was removed and the distal femur preparation was completed with the use of the reamer and the Medacta final preparation guide to place the tunnel for the sphere system. Once the distal femur preparation was completed, attention was then turned towards the tibia. Proximal tibia cuts and cutting guide contact points were debrided and the guide was pinned into position. Alignment guide confirmed that neutral alignment was established. Proximal tibia cut was made and the plateau was resected and all remnant soft tissue including meniscus and synovium were resected. The proximal tibia reaming was completed and attention was then turned towards the patella. Patella peg holes were completed and all cut surfaces were copiously irrigated. Trial implants with a size #5 distal femur and size #5 proximal tibia were then trialed and had good fit with good patellar tracking. Once this was established that these were final our sizes, trial implants were removed and all cut surfaces were copiously irrigated and patted dry. Biomet cobalt cement was then mixed and proper cement technique was used to place final implants consisting of size 5 cemented tibial base plate, size 5 cemented distal femur, size 2 cemented patellar button and a size 5 of 14 mm polyethelene spacer sphere. Once final implants were in good position, good stability was confirmed with no soft tissue imbalances and good mid-flexion stability with full extension and flexion achieved. Once it was confirmed with final implants in position and the cement hardened, the tourniquet was deflated for a total tourniquet time of 98 minutes and good hemostasis was achieved. Attention then turned towards repairing the patella tendon partial tear with the use of two 4.75 BioComposite SwiveLock anchors from [employer], two docking sites for the anchors directly below the patellar tendon were identified and drilled with a tap. The anchors were placed, preloaded with suture. The suture was passed through the avulsed patellar tendon and tied down directly over each other. Then, those sutures were tied down to each other creating a stable primary patellar tendon repair. Once this was completed with satisfaction, the wounds were copiously irrigated and local anesthetic was placed at the posterior capsule in superior and inferior aspect of the wounds. Alternating #2 FiberWire suture and #1 Vicryl suture were used for reapproximation and a retinacular repair. Subcutaneous tissue and deep tissue were reapproximated with #1 Vicryl suture followed by 2-0 Vicryl suture for subcutaneous tissue followed by naz for skin. Sterile dressings were applied followed by a layer of sterile cast padding from the toes up to the superior thigh, followed by a layer of compressive Anthony wrap from the toes up to the superior thigh. A Hemovac drain had been placed as well. The drain was placed prior to wound closure. A knee immobilizer was then fitted and placed for the patient's knee. Once the knee immobilizer was in position and the knee was in full extension and all dressings and wraps were in place, the patient was then extubated from general anesthesia and transferred to PACU in stable condition and tolerated the procedure well. DISPOSITION: The patient will remain as an inpatient under the observation of the primary medical team for 24 to 48 hours. She will work with physical therapy, case management, and social media strategist to determine optimal placement for her which would be a rehab facility versus home with services depending on her home situation and progression with rehab. She received adequate pain control. She will be started on DVT prophylaxis in the form of 40 mg subcutaneous Lovenox injection once daily, starting postoperative day #1. She will be monitored by my team and I will follow her as an inpatient until she is discharged to rehab facility. Once she is discharged, she will contact my office and we will arrange for early followup in the office. She will contact me directly with any questions or concerns. Mary Tobias MD
== END 2017-04-14 20:00 | DRG 470 ==
LOC: C.9S 08:23 → C.6T 20:07
PROVIDERS: ADMIT Internal Medicine Pulmonary Disease; ATTEND Internal Medicine Pulmonary Disease
PROC: 0SRC069 Replacement of Right Knee Joint with Oxidized Zirconium on Polyethylene Synthetic Substitute, Cemented, Open Approach (ICD-10-PCS; principal; 2017-04-11 12:45)
DX: M17.11 Unilateral primary osteoarthritis, right knee (principal); J44.9 Chronic obstructive pulmonary disease, unspecified; I11.9 Hypertensive heart disease without heart failure; M65.9 Synovitis and tenosynovitis, unspecified; I51.7 Cardiomegaly; R50.82 Postprocedural fever; E78.5 Hyperlipidemia, unspecified

== ENCOUNTER 2017-05-15 09:17 | Inpatient (IN) | payer MEDICARE ==
[2017-05-15 09:17] VITALS: BMI 27.3
[2017-05-15] MEDS ORDERED: Aluminum Hydroxide/Magnesium Hydroxide Susp (30 mL) PO STA (10:06)
[2017-05-15] MEDS ORDERED: Aluminum Hydroxide/Magnesium Hydroxide Susp (30 mL) ONE (10:13)
[2017-05-15 10:30] LABS: EOS # 0.4 K/uL (0.0-0.7); EOS % 7.5 % (0.0-4.0); HEMOGLOBIN 11.6 g/dL (11.0-16.0); LYMPH # 1.3 K/uL (1.0-4.3); LYMPH % 26.7 % (20.0-40.0); MEAN CELL VOLUME 84.7 fL (81.0-99.0); MEAN CORPUSCULAR HEMOGLOBIN 27.5 pg (27.0-31.0); MEAN CORPUSCULAR HGB CONC 32.5 g/dL (33.0-37.0); MEAN PLATELET VOLUME 9.6 fL (7.2-11.7); MONO # 0.6 K/uL (0.0-0.8); MONO % 11.6 % (0.0-10.0); NEUT # 2.6 K/uL (1.8-7.0); NEUT % 53.2 % (50.0-75.0); RBC 4.23 Mil/uL (3.80-5.20); RED CELL DISTRIBUTION WIDTH 16.3 % (11.5-14.5); WHITE BLOOD COUNT 4.9 K/uL (4.8-10.8)
--- NOTE | 2017-05-15 10:34 | C.PDOC ---
History Of Present Illness 72 y/o female with a past medical history of hypertension, GERD, and COPD, presents to the ED complaining of burning in the epigastric region since last night. She also began feeling lightheaded this morning. Of note patient recently had right knee replacement surgery with Dr. Sorenson and was discharged home from the [facility] this Sunday. Reports she was given Pepcid and Milanta while in the [facility] with relief of symptoms. Yesterday she called her GI specialist and was prescribed Zantac, which made her feel increasingly nauseous. Patient had follow up with Dr. Sorenson yesterday and states her knee is healing well. PMD: Dr. Michael Barger Time Seen by Provider: 05/15/17 09:54 Chief Complaint (Nursing): Dizziness/Lightheaded History Per: Patient History/Exam Limitations: no limitations Onset/Duration Of Symptoms: Days (x1) Current Symptoms Are (Timing): Still Present Fall Associated With With Symptoms: No Past Medical History Reviewed: Historical Data, Nursing Documentation, Vital Signs Vital Signs: Last Vital Signs Temp 98.1 F 05/15/17 09:49 Pulse 78 05/15/17 10:45 Resp 17 05/15/17 10:45 BP 138/84 05/15/17 10:45 Pulse Ox 97 05/15/17 11:29 - Medical History PMH: Arthritis, Bronchitis, COPD, GERD, HTN Denies: Chronic Kidney Disease Other Surgeries: Right knee replacement surgery - [facility] (04/11/17) CYSTOCELE REPAIR (09/14/97) CYSTOGRAM NEC (07/06/97) CYSTOMETROGRAM (07/06/97) CYSTOSCOPY NEC (09/14/97) OTHER CYSTOSTOMY (09/14/97) SUPRAPUBIC SLING OP (09/14/97) Family History: States: Unknown Family Hx - Social History Hx Tobacco Use: No Hx Alcohol Use: No Hx Substance Use: No - Immunization History Hx Tetanus Toxoid Vaccination: Yes Hx Influenza Vaccination: Yes (03/2017) Hx Pneumococcal Vaccination: Yes (03/2017) Review Of Systems Except As Marked, All Systems Reviewed And Found Negative. Cardiovascular: Positive for: Light Headedness. Negative for: Chest Pain Respiratory: Negative for: Shortness of Breath Gastrointestinal: Positive for: Nausea, Abdominal Pain (burning sensation in epigastrium). Negative for: Vomiting, Diarrhea Neurological: Negative for: Weakness, Numbness, Other (syncope) Physical Exam - Physical Exam Appears: Non-toxic, No Acute Distress Skin: Normal Color, Warm, Dry Head: Atraumatic, Normacephalic Eye(s): bilateral: Normal Inspection, PERRL, EOMI Nose: Normal Oral Mucosa: Moist Neck: Normal ROM, Supple Chest: Symmetrical Cardiovascular: Rhythm Regular Respiratory: Normal Breath Sounds, No Accessory Muscle Use Gastrointestinal/Abdominal: Soft, Tenderness (mid epigastric discomfort but no palpable tenderness), No Guarding, No Rebound Extremity: No Tenderness, No Pedal Edema, Other (MERA wrap in place at right knee ) Neurological/Psych: Oriented x3, Normal Speech ED Course And Treatment - Laboratory Results Result Diagrams: 05/15/17 10:22 05/15/17 10:22 ECG: Interpreted By Me, Viewed By Me Interpretation Of ECG: Normal sinus rhythm with flipped Ts in all lateral leads and Qs in the inferior in leads, no ST elevations/depressions. Rate From EC O2 Sat by Pulse Oximetry: 97 (RA) Pulse Ox Interpretation: Normal - Radiology CXR: Interpreted by Me, Viewed By Me CXR Interpretation: Yes: No Acute Disease Medical Decision Making Medical Decision Making: Time: 10:04 Initial Plan: * EKG * Pro BNP * Troponin I * CMP * CBC * Chest x-ray * Maalox Plus 30 ml PO * Pepcid 20 mg IVP * Reevaluation Labs reviewed, (+) troponin. Pro BNP elevated, 2380. Patient has doctor at [place] but not [facility] Dr. Blue saw her in the [facility] following recent surgery, so she requests Dr. Blue care for her during admission. Time: 11:[address] Blue who accepts patient for admission for ACS. Patient will be hospitalized as observation. Care transferred to Dr. Blue at this time. Disposition Discussed With : Lizette Blue Doctor Will See Patient In The: Hospital Counseled Patient/Family Regarding: Studies Performed, Diagnosis - Disposition Disposition: HOSPITALIZED Disposition Time: 11:24 Condition: GUARDED Forms: [facility] (Paraguayan) - POA Present On Arrival: None - Clinical Impression Clinical Impression: Unstable angina - Scribe Statement The provider has reviewed the documentation as recorded by the Scribe (Catherine Napoles) Provider Attestation: All medical record entries made by the Scribe were at my direction and personally dictated by me. I have reviewed the chart and agree that the record accurately reflects my personal performance of the history, physical exam, medical decision making, and the department course for this patient. I have also personally directed, reviewed, and agree with the discharge instructions and disposition. Decision To Admit - Pt Status Changed To: Hospital Disposition Of: Observation - . Bed Request Type: Telemetry Patient Diagnosis: Unstable angina
[2017-05-15 10:50] LABS: ALB/GLOB RATIO 1.1 (1.0-2.1); ALBUMIN 3.5 g/dL (3.5-5.0); CALCIUM 9.4 mg/dl (8.6-10.4)
[2017-05-15 11:00] LABS: TROPONIN I 0.158 ng/mL (0.00-0.120)
--- NOTE | 2017-05-15 11:03 | RAD ---
PROCEDURE: CHEST RADIOGRAPH, 1 VIEW HISTORY: Chest pain COMPARISON: None available. FINDINGS: LUNGS: The lungs are clear. PLEURA: No pneumothorax or pleural fluid seen. CARDIOVASCULAR: Normal. OSSEOUS STRUCTURES: No significant abnormalities. VISUALIZED UPPER ABDOMEN: Normal. OTHER FINDINGS: None. IMPRESSION: No active pulmonary disease.
--- NOTE | 2017-05-15 12:57 | CP.PCM.PN ---
Subjective - Date & Time of Evaluation Date of Evaluation: 05/15/17 Time of Evaluation: 12:00 - Subjective Subjective: PGY2 Resident - Medicine Progress Note for Dr. Blue. This 72 year old female with PMHx of GERD, COPD, HTN, s/p right TKR - presents to the ED complaining of burning in the epigastric region since last night. This morning, she also began to feel lightheaded. She recently had a right TKR with Dr. Sorenson and was [facility] this past Sunday[facility]/13/17. She states she was Rx'd Pepcid and Milanta while in the [facility], which helped relieve her symptoms. She called her GI specialist yesterday and was Rx'd Zantac, however she could not tolerate it as it made her nauseous. She followed up with Dr. Sorenson yesterday, and reports her knee is healing well. She denies f/c, chest pain, SOB, numbness / tinging of the upper or lower extremities, overt abdominal pain, LE edema, or dysuria. 12-point review of systems is otherwise negative without any additional acute complaints. PMHx: GERD, COPD, HTN, s/p right TKR PSHx: right TKR Social: denies tobacco, ETOH or drug use PMD: Dr. Michael Barger Objective - Vital Signs/Intake and Output Vital Signs (last 24 hours): Temp Pulse Resp BP Pulse Ox 98.1 F 76 18 142/77 98 05/15/17 09:49 05/15/17 11:31 05/15/17 11:31 05/15/17 11:31 05/15/17 11:31 - Labs Labs: 05/15/17 10:22 05/15/17 10:22 - Additional Findings Additional findings: - Constitutional Appears: Non-toxic, No Acute Distress - Head Exam Head Exam: ATRAUMATIC - ENT Exam ENT Exam: Mucous Membranes Moist - Respiratory Exam Respiratory Exam: Clear to Ausculation Bilateral. absent: Accessory Muscle Use , Rhonchi, Wheezes, Respiratory Distress - Cardiovascular Exam Cardiovascular Exam: REGULAR RHYTHM, +S1, +S2 - GI/Abdominal Exam GI & Abdominal Exam: Soft, Normal Bowel Sounds. absent: Distended, Firm, Guarding, Rigid, Tenderness, Organomegaly - Note: patient has mid epigastric discomfort / burning, with no palpable tenderness - Extremities Exam Extremities Exam: absent: Calf Tenderness, Pedal Edema, Tenderness -Note: MERA wrap in place at right knee - Neurological Exam Neurological Exam: Alert, Awake, Oriented x3 - Psychiatric Exam Psychiatric exam: Normal Affect, Normal Mood - Skin Skin Exam: Dry, Intact, Normal Color, Warm Assessment and Plan - Assessment and Plan (Free Text) Assessment: Unstable angina -EKG 05/15/17 - Normal sinus rhythm, Possible Left atrial enlargement, Inferior infarct, age undetermined, T wave abnormality, consider anterior ischemia, Abnormal ECG -CXR - negative -Troponin #1 (+) -Cardiology consult, Dr. Blanton, f/u recs -BNP 2380 -f/u Echo -Prior Stress test 02/2017 - normal SPECT myocardial perfusion study, fixed anteroseptal / apical defects likely 2/2 breast -attenuation; normal gated wall motion of L ventricle. -f/u TASHA's x2 -f/u EKG x2 -oxygen via NC 2L -Tylenol 650mg PO Q6H PRN pain -ASA 81mg -Crestor 10mg PO HS GERD - Protonix 40mg PO qD - f/u stool H. Pylori - patient reports she completed her prior tx of antibiotics + omeprazole. HTN - Continue home medications: amlodipine and cozaar - will continue to monitor -f/u A1c, TSH, Free T4, Lipids COPD - Continue Advair and spiriva Prophylaxis - protonix 40mg PO qD - Heparin 5000u SC Q8H - SCDs Case discussed with attending. All medical management as per Dr. Hitesh Blue.
[2017-05-15 18:09] LABS: CK-MB 1.3 ng/mL (0.0-3.38); TROPONIN I 0.217 ng/mL (0.00-0.120)
[2017-05-15] MEDS ORDERED: Fluticasone-Salmeterol 250-50mcg Diskus IH SCH (20:00)
[2017-05-15] MEDS ORDERED: Oxycodone/Acetaminophen 5/325 mg Tab PO PRN (21:14)
--- NOTE | 2017-05-15 23:52 | CP.PCM.CON ---
History of Present Illness - History of Present Illness History of Present Illness: Reason For Consultation: Non St elevation OR History Of Present Illness 72 y/o female with a past medical history of hypertension, GERD, and COPD, presents to the ED complaining of burning in the epigastric region since last night. She also began feeling lightheaded this morning. Of note patient recently had right knee replacement surgery with Dr. Sorenson and was [facility] from the [facility] this Sunday. Reports she was given Pepcid and Milanta while in the [facility] with relief of symptoms. Yesterday she called her GI specialist and was prescribed Zantac, which made her feel increasingly nauseous. Patient had follow up with Dr. Sorenson yesterday and states her knee is healing well. PMD: Dr. Michael Barger Chief Complaint (Nursing): Dizziness/Lightheaded History Per: Patient History/Exam Limitations: no limitations Onset/Duration Of Symptoms: Days (x1) Current Symptoms Are (Timing): Still Present Fall Associated With With Symptoms: No - Medical History PMH: Arthritis, Bronchitis, COPD, GERD, HTN Denies: Chronic Kidney Disease Other Surgeries: Right knee replacement surgery - [facility] (04/11/17) CYSTOCELE REPAIR (09/14/97) CYSTOGRAM NEC (07/06/97) CYSTOMETROGRAM (07/06/97) CYSTOSCOPY NEC (09/14/97) OTHER CYSTOSTOMY (09/14/97) SUPRAPUBIC SLING OP (09/14/97) Family History: States: Unknown Family Hx - Social History Hx Tobacco Use: No Hx Alcohol Use: No Hx Substance Use: No - Immunization History Hx Tetanus Toxoid Vaccination: Yes Hx Influenza Vaccination: Yes (03/2017) Hx Pneumococcal Vaccination: Yes (03/2017) Review Of Systems Except As Marked, All Systems Reviewed And Found Negative. Cardiovascular: Positive for: Light Headedness. Negative for: Chest Pain Respiratory: Negative for: Shortness of Breath Gastrointestinal: Positive for: Nausea, Abdominal Pain (burning sensation in epigastrium). Negative for: Vomiting, Diarrhea Neurological: Negative for: Weakness, Numbness, Other (syncope) Physical Exam - Physical Exam Appears: Non-toxic, No Acute Distress Skin: Normal Color, Warm, Dry Head: Atraumatic, Normacephalic Eye(s): bilateral: Normal Inspection, PERRL, EOMI Nose: Normal Oral Mucosa: Moist Neck: Normal ROM, Supple Chest: Symmetrical Cardiovascular: Rhythm Regular Respiratory: Normal Breath Sounds, No Accessory Muscle Use Gastrointestinal/Abdominal: Soft, Tenderness (mid epigastric discomfort but no palpable tenderness), No Guarding, No Rebound Extremity: No Tenderness, No Pedal Edema, Other (MERA wrap in place at right knee ) Neurological/Psych: Oriented x3, Normal Speech Past Patient History - Infectious Disease Hx of Infectious Diseases: None - Past Social History Smoking Status: Never Smoked - CARDIAC Hx Hypertension: Yes - PULMONARY Hx Bronchitis: Yes Hx Chronic Obstructive Pulmonary Disease (COPD): Yes - NEUROLOGICAL Hx Neurological Disorder: No - HEENT Hx HEENT Problems: No - RENAL Hx Chronic Kidney Disease: No - ENDOCRINE/METABOLIC Hx Endocrine Disorders: No - HEMATOLOGICAL/ONCOLOGICAL Hx Blood Disorders: No Hx Blood Transfusions: No - INTEGUMENTARY Hx Dermatological Problems: No - MUSCULOSKELETAL/RHEUMATOLOGICAL Hx Falls: No - GASTROINTESTINAL Hx Gastrointestinal Disorders: Yes Hx Gastroesophageal Reflux: Yes - GENITOURINARY/GYNECOLOGICAL Hx Genitourinary Disorders: No - PSYCHIATRIC Hx Substance Use: No - SURGICAL HISTORY Hx Surgeries: Yes Hx Orthopedic Surgery: Yes (Right knee replacement) - ANESTHESIA Hx Anesthesia: Yes Hx Anesthesia Reactions: No Hx Malignant Hyperthermia: No Has any member of the family had a problem w/ anesthesia?: No Meds Home Medications: Home Medication List Medication Instructions Recorded Confirmed Type Aspirin [Adult Aspirin Regimen] 81 mg PO DAILY #90 tablet. 05/18/17 Rx Clopidogrel [Plavix] 75 mg PO DAILY #90 tab 05/18/17 Rx Metoprolol Succinate [Toprol XL] 50 mg PO DAILY #90 tab 05/18/17 Rx Rosuvastatin Calcium [Crestor] 20 mg PO HS #90 tablet 05/18/17 Rx Allergies/Adverse Reactions: Allergies Allergy/AdvReac Type Severity Reaction Status Date / Time No Known Allergies Allergy Verified 05/15/17 09:43 - Medications Medications: Current Medications Acetaminophen (Tylenol 325mg Tab) 650 mg PO Q6 PRN PRN Reason: Pain, Mild (1-3) Last Admin: 05/15/17 21:21 Dose: 650 mg Amlodipine Besylate (Norvasc) 10 mg PO DAILY [facility] Aspirin (Aspirin Chewable) 81 mg PO DAILY [facility] Heparin Sodium (Porcine) (Heparin) 5,000 units SC Q8 [facility] Last Admin: 05/15/17 21:21 Dose: 5,000 units Losartan Potassium (Cozaar) 100 mg PO DAILY [facility] Oxycodone/Acetaminophen (Percocet 5/325 Mg Tab) 1 tab PO Q4H PRN PRN Reason: Pain Stop: 05/18/17 21:15 Pantoprazole Sodium (Protonix Ec Tab) 40 mg PO DAILY [facility] Rosuvastatin Calcium (Crestor) 10 mg PO HS [facility] Last Admin: 05/15/17 21:21 Dose: 10 mg Fluticasone/Salmeterol (Advair Diskus 250/50) 1 puff IH RBID [facility] Tiotropium [place] (Spiriva) 18 mcg INH RQ24 [facility] Results - Vital Signs Recent Vital Signs: Last Vital Signs Temp 97.8 F 05/15/17 19:26 Pulse 81 05/15/17 19:26 Resp 20 05/15/17 19:26 BP 160/90 H 05/15/17 19:26 Pulse Ox 100 05/15/17 19:26 - Labs Result Diagrams: 05/18/17 07:35 05/18/17 07:35 Labs: Laboratory Results - last 24 hr 05/15/17 05/15/17 05/15/17 10:22 10:22 13:40 WBC 4.9 RBC 4.23 Hgb 11.6 D Hct 35.8 MCV 84.7 MCH 27.5 MCHC 32.5 L RDW 16.3 H Plt Count 183 MPV 9.6 Neut % (Auto) 53.2 Lymph % (Auto) 26.7 [place] % (Auto) 11.6 H Eos % (Auto) 7.5 H Baso % (Auto) 1.0 Neut # (Auto) 2.6 Lymph # (Auto) 1.3 [place] # (Auto) 0.6 Eos # (Auto) 0.4 Baso # (Auto) 0.0 APTT 35 H Sodium 142 Potassium 4.2 Chloride 104 Carbon Dioxide 27 Anion Gap 16 BUN 26 H Creatinine 1.1 Est GFR ( Amer) 59 Est GFR (Non-Af Amer) 49 Random Glucose 104 Calcium 9.4 Total Bilirubin 0.3 AST 46 H D ALT 39 Alkaline Phosphatase 75 Total Creatine Kinase CK-MB (Mass) Troponin I 0.1580 H* NT-Pro-B Natriuret Pep 2380 H Total Protein 6.8 Albumin 3.5 Globulin 3.3 Albumin/Globulin Ratio 1.1 03/06/18 17:35 WBC RBC Hgb Hct MCV MCH MCHC RDW Plt Count MPV Neut % (Auto) Lymph % (Auto) [place] % (Auto) Eos % (Auto) Baso % (Auto) Neut # (Auto) Lymph # (Auto) [place] # (Auto) Eos # (Auto) Baso # (Auto) APTT Sodium Potassium Chloride Carbon Dioxide Anion Gap BUN Creatinine Est GFR ( Amer) Est GFR (Non-Af Amer) Random Glucose Calcium Total Bilirubin AST ALT Alkaline Phosphatase Total Creatine Kinase 75 CK-MB (Mass) 1.30 Troponin I 0.2170 H* NT-Pro-B Natriuret Pep Total Protein Albumin Globulin Albumin/Globulin Ratio Assessment & Plan - Assessment and Plan (Free Text) Assessment: Unstable angina -EKG 05/15/17 - Normal sinus rhythm, Possible Left atrial enlargement, Inferior infarct, age undetermined, T wave abnormality, consider anterior ischemia, Abnormal ECG -CXR - negative -Troponin #1 (+) -BNP 2380 -f/u Echo -Prior Stress test 02/2017 - normal SPECT myocardial perfusion study, fixed anteroseptal / apical defects likely 2/2 breast -attenuation; normal gated wall motion of L ventricle. -f/u TASHA's x2 -f/u EKG x2 -oxygen via NC 2L -Tylenol 650mg PO Q6H PRN pain -ASA 81mg -Crestor 10mg PO HS GERD - Protonix 40mg PO qD - f/u stool H. Pylori - patient reports she completed her prior tx of antibiotics + omeprazole. HTN - Continue home medications: amlodipine and cozaar - will continue to monitor -f/u A1c, TSH, Free T4, Lipids COPD - Continue Advair and spiriva Prophylaxis - protonix 40mg PO qD - Heparin 5000u SC Q8H - SCDs Cardiac cath tomorrow
[2017-05-16 00:59] LABS: CK-MB 1.08 ng/mL (0.0-3.38)
[2017-05-16 01:02] LABS: TROPONIN I 0.163 ng/mL (0.00-0.120)
--- NOTE | 2017-05-16 06:30 | HP ---
HISTORY OF PRESENT ILLNESS: The patient is a 72-year-old female who has been complaining of heartburn. The patient came to the hospital ER, advised admission. The patient had history of knee replacement. The patient does not smoke or drink. The patient had workup done in [facility] in February for further cardiac issues and they were all were negative. PHYSICAL EXAMINATION: GENERAL: The patient is awake, alert, and oriented. VITAL SIGNS: Temperature is 98, pulse is 90. HEENT: Within normal limits. NECK: Supple. CHEST: Symmetrical. HEART: Regular. ABDOMEN: Soft. EXTREMITIES: No edema. IMPRESSION AND PLAN: The patient to rule out acute coronary syndrome. The patient in bedrest and supportive care. Lizette Blue MD
[2017-05-16 07:38] LABS: BASO # 0.1 K/uL (0.0-0.2); BASO % 2.1 % (0.0-2.0); EOS # 0.5 K/uL (0.0-0.7); EOS % 12.5 % (0.0-4.0); HEMOGLOBIN 10.9 g/dL (11.0-16.0); LYMPH # 1.6 K/uL (1.0-4.3); LYMPH % 39.8 % (20.0-40.0); MEAN CELL VOLUME 84.3 fL (81.0-99.0); MEAN CORPUSCULAR HEMOGLOBIN 27.7 pg (27.0-31.0); MEAN CORPUSCULAR HGB CONC 32.8 g/dL (33.0-37.0); MEAN PLATELET VOLUME 9.4 fL (7.2-11.7); MONO # 0.4 K/uL (0.0-0.8); NEUT # 1.4 K/uL (1.8-7.0); NEUT % 34.6 % (50.0-75.0); RBC 3.94 Mil/uL (3.80-5.20); RED CELL DISTRIBUTION WIDTH 16.1 % (11.5-14.5)
[2017-05-16 07:41] LABS: INR 1.2; PROTHROMBIN TIME 12.9 SECONDS (9.7-12.2)
[2017-05-16 08:09] LABS: ALB/GLOB RATIO 1.1 (1.0-2.1); ALBUMIN 3.3 g/dL (3.5-5.0); ALT/SGPT 45 U/L (9-52); AST/SGOT 42 U/L (14-36); BLOOD UREA NITROGEN 22 mg/dL (7-17); CALCIUM 9.2 mg/dl (8.6-10.4); GFR AFRICAN-AMERICAN > 60; GFR NON-AFRICAN AMERICAN 55; HDL CHOLESTEROL 42 mg/dL (30-70)
[2017-05-16 08:19] LABS: LDL CHOLESTEROL 53 mg/dL (0-129)
[2017-05-16] MEDS: Fluticasone-Salmeterol 250-50mcg Diskus IH SCH ×2 (08:19→21:02)
[2017-05-16] MEDS: Tiotropium 18 mcg Cap For Inhalation INH SCH (08:19)
--- NOTE | 2017-05-16 08:54 | CP.PCM.PN ---
Subjective - Date & Time of Evaluation Date of Evaluation: 05/16/17 Time of Evaluation: 07:00 - Subjective Subjective: PGY2 Resident - Medicine Progress Note for Dr. Blue. Patient seen and examined at bedside. Resting comfortably, no acute distress. She reports her epigastric / esophageal burning sensation has resolved. Denies any chest pain, numbness/ tingling of the extremities, n/v, d/c, or any additional complaints. She is going for a cardiac cath with Dr. Blanton later today. 12-point review of systems is otherwise negative without any additional acute complaints. Objective - Vital Signs/Intake and Output Vital Signs (last 24 hours): Temp Pulse Resp BP Pulse Ox 97.2 F L 79 20 174/90 H 96 05/16/17 08:40 05/16/17 08:40 05/16/17 08:40 05/16/17 08:40 05/16/17 08:40 - Medications Medications: Current Medications Acetaminophen (Tylenol 325mg Tab) 650 mg PO Q6 PRN PRN Reason: Pain, Mild (1-3) Last Admin: 05/15/17 21:21 Dose: 650 mg Amlodipine Besylate (Norvasc) 10 mg PO DAILY [facility] Aspirin (Aspirin Chewable) 81 mg PO DAILY [facility] Heparin Sodium (Porcine) (Heparin) 5,000 units SC Q8 [facility] Last Admin: 05/16/17 05:51 Dose: 5,000 units Losartan Potassium (Cozaar) 100 mg PO DAILY [facility] Oxycodone/Acetaminophen (Percocet 5/325 Mg Tab) 1 tab PO Q4H PRN PRN Reason: Pain Stop: 05/18/17 21:15 Pantoprazole Sodium (Protonix Ec Tab) 40 mg PO DAILY [facility] Rosuvastatin Calcium (Crestor) 10 mg PO HS [facility] Last Admin: 05/15/17 21:21 Dose: 10 mg Fluticasone/Salmeterol (Advair Diskus 250/50) 1 puff IH RBID [facility] Last Admin: 05/16/17 08:19 Dose: 1 inhaler Tiotropium [place] (Spiriva) 18 mcg INH RQ24 [facility] Last Admin: 05/16/17 08:19 Dose: 18 mcg - Labs Labs: 05/16/17 07:17 05/16/17 07:17 PT 12.9 SECONDS (9.7-12.2) H 05/16/17 07:17 INR 1.2 05/16/17 07:17 APTT 58 SECONDS (21-34) H D 05/16/17 07:17 - Additional Findings Additional findings: - Constitutional Appears: Non-toxic, No Acute Distress - Head Exam Head Exam: ATRAUMATIC - ENT Exam ENT Exam: Mucous Membranes Moist - Respiratory Exam Respiratory Exam: Clear to Ausculation Bilateral. absent: Accessory Muscle Use , Rhonchi, Wheezes, Respiratory Distress - Cardiovascular Exam Cardiovascular Exam: REGULAR RHYTHM, +S1, +S2 - GI/Abdominal Exam GI & Abdominal Exam: Soft, Normal Bowel Sounds. absent: Distended, Firm, Guarding, Rigid, Tenderness, Organomegaly - Note: mid epigastric discomfort / burning has resolved - Extremities Exam Extremities Exam: absent: Calf Tenderness, Pedal Edema, Tenderness -Note: MERA wrap in place at right knee - Neurological Exam Neurological Exam: Alert, Awake, Oriented x3 - Psychiatric Exam Psychiatric exam: Normal Affect, Normal Mood - Skin Skin Exam: Dry, Intact, Normal Color, Warm Assessment and Plan - Assessment and Plan (Free Text) Assessment: Unstable angina 05/16: Troponins (+) x3. CKMB negative x2. EKG's grossly negative / unchanged x2. Scheduled for cardiac cath with Dr. Blanton today. -EKG 05/15/17 - Normal sinus rhythm, Possible Left atrial enlargement, Inferior infarct, age undetermined, T wave abnormality, consider anterior ischemia, Abnormal ECG -CXR - negative -Troponin #1 (+) -Cardiology consult, Dr. Blanton, f/u recs -BNP 2380 -f/u Echo -Prior Stress test 02/2017 - normal SPECT myocardial perfusion study, fixed anteroseptal / apical defects likely 2/2 breast -attenuation; normal gated wall motion of L ventricle. -f/u TASHA's x2 -f/u EKG x2 -oxygen via NC 2L -Tylenol 650mg PO Q6H PRN pain -ASA 81mg -Crestor 10mg PO HS GERD 05/16: epigastric burning resolved today. - Protonix 40mg PO qD - f/u stool H. Pylori - patient reports she completed her prior tx of antibiotics + omeprazole. HTN - Continue home medications: amlodipine and cozaar - will continue to monitor -A1c 5.4, TSH pending, Free T4 1.2, Lipids WNL (HDL 42L). COPD - Continue Advair and spiriva Prophylaxis - protonix 40mg PO qD - Heparin 5000u SC Q8H - SCDs Case discussed with attending. All medical management as per Dr. Hitesh Blue.
[2017-05-16] MEDS: Pantoprazole 40 mg EC Tab PO SCH (09:09)
[2017-05-16] MEDS ORDERED: Verapamil 2 ML ONE (11:48)
[2017-05-16] MEDS ORDERED: Midazolam 2 MG/2 ML VIAL ONE (11:48)
[2017-05-16] MEDS ORDERED: Nitroglycerin 50mg in D5W 50 MG/250 ML BOTTLE IV ONE (11:49)
--- NOTE | 2017-05-16 12:50 | CP.PCM.PN ---
Subjective - Date & Time of Evaluation Date of Evaluation: 05/16/17 Time of Evaluation: 12:47 - Subjective Subjective: Patient s/p recent [place] Cath findings: 1. L Main: Patent 2. LAD: Mid 70% stenosis 3. L Cx: Mid 90-95% stenosis 4. 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 EF: 70%, No WMA, EDP 18 A/P: Triple vessel disease CABG Vs. Multi vessel PCI Will d/w patient and family Objective - Vital Signs/Intake and Output Vital Signs (last 24 hours): Temp Pulse Resp BP Pulse Ox 97.2 F L 66 20 181/87 H 96 05/16/17 08:40 05/16/17 09:08 05/16/17 08:40 05/16/17 09:08 05/16/17 08:40 - Medications Medications: Current Medications Acetaminophen (Tylenol 325mg Tab) 650 mg PO Q6 PRN PRN Reason: Pain, Mild (1-3) Last Admin: 05/15/17 21:21 Dose: 650 mg Amlodipine Besylate (Norvasc) 10 mg PO DAILY [facility] Last Admin: 05/16/17 09:09 Dose: 10 mg Aspirin (Aspirin Chewable) 81 mg PO DAILY [facility] Last Admin: 05/16/17 09:10 Dose: 81 mg Heparin Sodium (Porcine) (Heparin) 5,000 units SC Q8 [facility] Last Admin: 05/16/17 05:51 Dose: 5,000 units Sodium Chloride (Sodium Chloride 0.45%) 500 mls @ 70 mls/hr IV .Q7H9M [facility] Stop: 05/17/17 07:30 Losartan Potassium (Cozaar) 100 mg PO DAILY [facility] Last Admin: 05/16/17 09:10 Dose: 100 mg Metoprolol Tartrate (Lopressor) 25 mg PO BID [facility] Oxycodone/Acetaminophen (Percocet 5/325 Mg Tab) 1 tab PO Q4H PRN PRN Reason: Pain Stop: 05/18/17 21:15 Pantoprazole Sodium (Protonix Ec Tab) 40 mg PO DAILY [facility] Last Admin: 05/16/17 09:09 Dose: 40 mg Rosuvastatin Calcium (Crestor) 10 mg PO HS [facility] Last Admin: 05/15/17 21:21 Dose: 10 mg Fluticasone/Salmeterol (Advair Diskus 250/50) 1 puff IH RBID [facility] Last Admin: 05/16/17 08:19 Dose: 1 inhaler Tiotropium [place] (Spiriva) 18 mcg INH RQ24 [facility] Last Admin: 05/16/17 08:19 Dose: 18 mcg - Labs Labs: 05/16/17 07:17 05/16/17 07:17 PT 12.9 SECONDS (9.7-12.2) H 05/16/17 07:17 INR 1.2 05/16/17 07:17 APTT 58 SECONDS (21-34) H D 05/16/17 07:17
--- NOTE | 2017-05-16 22:45 | CARDCATH ---
PROCEDURE DATE: 05/16/2017 PROCEDURES: 1. Left heart catheterization. 2. Coronary angiogram. 3. Radiological supervision and radiological interpretation of the cardiac catheterization. CLINICAL INDICATIONS: 1. Chest pain. 2. Non-ST elevation myocardial infarction. 3. Hyperlipemia. 4. Coronary artery disease. REFERRING PHYSICIAN: Lizette Blue M.D. PERFORMING PHYSICIAN: Kelvin Blanton M.D. DESCRIPTION OF PROCEDURE: After informed consent, the patient was prepped and draped in the usual sterile fashion. A 2% lidocaine was given in the right wrist for local anesthesia. Using micropuncture technique, 6-Surinamese sheath was introduced into right radial artery. A JR4 6-Surinamese diagnostic catheter crossed into left ventricle. Contrast injected and LV angiogram was performed. LVEDP was measured. The catheter was pulled back across the aortic valve. Gradient across the aortic valve was measured. Then JR4 catheter engaged into right coronary artery. Contrast injected and right coronary angiogram was done. A 6-[place]inamese [place] catheter engaged into left main coronary artery. Contrast injected and left coronary angiogram was performed. The patient tolerated the procedure well. Postprocedure, Terumo radial band applied to right wrist with excellent hemostasis. FINDINGS: 1. Left main coronary artery is patent. 2. Proximal LAD has mild luminal irregularities. Mid LAD has 70% concentric stenosis. Distal LAD and diagonal branches are patent. 3. Left circumflex is large. Mid left circumflex has a 95% concentric stenosis. Obtuse marginal branches are patent. 4. Right coronary artery has 100% occlusion in the mid region. This is a chronic total occlusion. There are collaterals from the left and right system. 5. LV ejection fraction is approximately 70%. No wall motion abnormalities noted. EDP is 15. No gradient across the aortic valve. IMPRESSION: 1. Triple vessel disease. 2. Hypertension. 3. Hyperlipidemia. PLAN: Recommend either coronary artery bypass surgery or multivessel stenting. Kelvin Blanton MD
[2017-05-17 07:08] LABS: BASO # 0.1 K/uL (0.0-0.2); BASO % 1.3 % (0.0-2.0); EOS # 0.5 K/uL (0.0-0.7); EOS % 11.2 % (0.0-4.0); HEMOGLOBIN 10.5 g/dL (11.0-16.0); LYMPH # 1.7 K/uL (1.0-4.3); MEAN CELL VOLUME 84.8 fL (81.0-99.0); MEAN CORPUSCULAR HEMOGLOBIN 27.8 pg (27.0-31.0); MEAN CORPUSCULAR HGB CONC 32.8 g/dL (33.0-37.0); MEAN PLATELET VOLUME 9.8 fL (7.2-11.7); MONO # 0.5 K/uL (0.0-0.8); MONO % 11.3 % (0.0-10.0); NEUT # 1.6 K/uL (1.8-7.0); NEUT % 36.2 % (50.0-75.0); NRBC % 0.1 % (0.0-2.0); RBC 3.79 Mil/uL (3.80-5.20); RED CELL DISTRIBUTION WIDTH 15.5 % (11.5-14.5); WHITE BLOOD COUNT 4.4 K/uL (4.8-10.8)
[2017-05-17 07:27] LABS: ALB/GLOB RATIO 0.9 (1.0-2.1); ALT/SGPT 36 U/L (9-52); AST/SGOT 22 U/L (14-36); BLOOD UREA NITROGEN 19 mg/dL (7-17); CALCIUM 8.8 mg/dl (8.6-10.4); GFR AFRICAN-AMERICAN > 60; GFR NON-AFRICAN AMERICAN 55
--- NOTE | 2017-05-17 08:29 | CARD ---
APPROVED REPORT EXAM: Two-dimensional and M-mode echocardiogram with Doppler and color Doppler. Other Information Quality : GoodRhythm : INDICATION UNSTABLE ANGINA,POSITIVE TROPONIN RISK FACTORS Hypertension 2D DIMENSIONS IVSd1.3 (0.7-1.1cm)LVDd3.8 (3.9-5.9cm) PWd1.4 (0.7-1.1cm)LVDs2.6 (2.5-4.0cm) FS (%) 31.6 %LVEF (%)60.3 (>50%) M-Mode DIMENSIONS Left Atrium (MM)2.95 (2.5-4.0cm)Aortic Root3.61 (2.2-3.7cm) Aortic Cusp Exc.2.31 (1.5-2.0cm) Mitral Valve MV E Vrdlzydn40.0cm/sMV A Nkggmpjx880.7cm/sE/A ratio0.3 TDI E/Lateral E'0.0E/Medial E'0.0 Tricuspid Valve TR Peak [id number]/sTR Peak Gr.[id number] LEFT VENTRICLE The left ventricle is normal size. There is mild concentric left ventricular hypertrophy. Left ventricle systolic function is normal. The Ejection Fraction is 60-65%. There is normal LV segmental wall motion. Tissue Doppler imaging reveals abnormal left ventricular diastolic dysfunction. RIGHT VENTRICLE The right ventricle is normal size. There is normal right ventricular wall thickness. The right ventricular systolic function is normal. ATRIA The left atrium size is normal. The right atrium size is normal. The interatrial septum is intact with no evidence for an atrial septal defect. AORTIC VALVE The aortic valve is normal in structure. No aortic regurgitation is present. There is no aortic valvular stenosis. There is no aortic valvular vegetation. MITRAL VALVE The mitral valve is normal in structure. There is no evidence of mitral valve prolapse. There is no mitral valve stenosis. There is no mitral valve regurgitation noted. TRICUSPID VALVE The tricuspid valve is normal in structure. No tricuspid regurgitation. Right ventricular systolic pressure is estimated at less than 30 mmHg. There is no pulmonary hypertension. PULMONIC VALVE The pulmonic valve is not well visualized. There is no pulmonic valvular regurgitation. GREAT VESSELS The aortic root is normal in size. PERICARDIAL EFFUSION There is no significant pericardial effusion. <Conclusion> Left ventricle systolic function is normal. The Ejection Fraction is 60-65%. Hypertensive heart disease. Diastolic dysfunction. No aortic regurgitation is present. There is no mitral valve regurgitation noted. No tricuspid regurgitation. There is no pulmonary hypertension. There is no pulmonic valvular regurgitation.
[2017-05-17] MEDS: Fluticasone-Salmeterol 250-50mcg Diskus IH SCH ×2 (10:00→20:52)
[2017-05-17] MEDS: Tiotropium 18 mcg Cap For Inhalation INH SCH (10:01)
--- NOTE | 2017-05-17 10:42 | CP.PCM.PN ---
Subjective - Date & Time of Evaluation Date of Evaluation: 05/17/17 Time of Evaluation: 10:47 - Subjective Subjective: PGY2 Medicine note for Dr. Blue; all management as per Dr. Blue This patient was seen and examined at bedside this AM; denies any acute complaints or overnight events; states she is not nervous at all for her procedure at [place]; denies current fevers/chills, LABOY, CP, SOB, abdominal pain , N/V/D dysuria/freq/urg or lower extremity pain/swelling. Objective - Vital Signs/Intake and Output Vital Signs (last 24 hours): Temp Pulse Resp BP Pulse Ox 98 F 77 20 169/88 H 98 05/17/17 08:00 05/17/17 09:17 05/17/17 08:00 05/17/17 09:22 05/17/17 08:00 - Medications Medications: Current Medications Acetaminophen (Tylenol 325mg Tab) 650 mg PO Q6 PRN PRN Reason: Pain, Mild (1-3) Last Admin: 05/16/17 20:09 Dose: 650 mg Amlodipine Besylate (Norvasc) 10 mg PO DAILY [facility] Last Admin: 05/17/17 09:22 Dose: 10 mg Aspirin (Aspirin Chewable) 81 mg PO DAILY [facility] Last Admin: 05/16/17 09:10 Dose: 81 mg Heparin Sodium (Porcine) (Heparin) 5,000 units SC Q8 [facility] Last Admin: 05/17/17 05:18 Dose: 5,000 units Losartan Potassium (Cozaar) 100 mg PO DAILY [facility] Last Admin: 05/17/17 09:22 Dose: 100 mg Metoprolol Tartrate (Lopressor) 25 mg PO BID [facility] Last Admin: 05/17/17 09:22 Dose: 25 mg Oxycodone/Acetaminophen (Percocet 5/325 Mg Tab) 1 tab PO Q4H PRN PRN Reason: Pain Stop: 05/18/17 21:15 Pantoprazole Sodium (Protonix Ec Tab) 40 mg PO DAILY [facility] Last Admin: 05/16/17 09:09 Dose: 40 mg Rosuvastatin Calcium (Crestor) 10 mg PO HS [facility] Last Admin: 05/16/17 21:08 Dose: 10 mg Fluticasone/Salmeterol (Advair Diskus 250/50) 1 puff IH RBID [facility] Last Admin: 05/17/17 10:00 Dose: Not Given Tiotropium [place] (Spiriva) 18 mcg INH RQ24 [facility] Last Admin: 05/17/17 10:01 Dose: Not Given - Labs Labs: 05/17/17 06:58 05/17/17 06:58 PT 12.9 SECONDS (9.7-12.2) H 05/16/17 07:17 INR 1.2 05/16/17 07:17 APTT 58 SECONDS (21-34) H D 05/16/17 07:17 - Constitutional Appears: Non-toxic - Head Exam Head Exam: ATRAUMATIC - Eye Exam Eye Exam: EOMI Pupil Exam: PERRL - ENT Exam ENT Exam: Mucous Membranes Moist - Neck Exam Neck Exam: Full ROM - Respiratory Exam Respiratory Exam: Clear to Ausculation Bilateral, NORMAL BREATHING PATTERN. absent: Rales, Rhonchi, Wheezes - Cardiovascular Exam Cardiovascular Exam: REGULAR RHYTHM, +S1, +S2 - GI/Abdominal Exam GI & Abdominal Exam: Soft, Normal Bowel Sounds - Extremities Exam Extremities Exam: absent: Calf Tenderness - Neurological Exam Neurological Exam: Alert, Awake, Oriented x3 - Psychiatric Exam Psychiatric exam: Normal Affect Assessment and Plan - Assessment and Plan (Free Text) Assessment: 72yo F admitted for unstable angina Unstable angina 05/17: patient is being transported to [place] for cath and stenting; will be transported back after procedure is completed; results to [facility] 05/16: Troponins (+) x3. CKMB negative x2. EKG's grossly negative / unchanged x2. Scheduled for cardiac cath with Dr. Blanton today. -EKG 05/15/17 - Normal sinus rhythm, Possible Left atrial enlargement, Inferior infarct, age undetermined, T wave abnormality, consider anterior ischemia, Abnormal ECG -CXR - negative -Troponin #1 (+) -Cardiology consult, Dr. Blanton, f/u recs -BNP 2380 -f/u Echo -Prior Stress test 02/2017 - normal SPECT myocardial perfusion study, fixed anteroseptal / apical defects likely 2/2 breast -attenuation; normal gated wall motion of L ventricle. -f/u TASHA's x2 -f/u EKG x2 -oxygen via NC 2L -Tylenol 650mg PO Q6H PRN pain -ASA 81mg -Crestor 10mg PO HS GERD; chronic 05/16: epigastric burning resolved today. - Protonix 40mg PO qD - f/u stool H. Pylori - patient reports she completed her prior tx of antibiotics + omeprazole. HTN;chronic - Continue home medications: amlodipine and cozaar - will continue to monitor -A1c 5.4, TSH pending, Free T4 1.2, Lipids WNL (HDL 42L). COPD;chronic not in acute exacerbation - Continue Advair and spiriva Prophylaxis - protonix 40mg PO qD - Heparin 5000u SC Q8H - SCDs Case discussed with attending. All medical management as per Dr. Hitesh Blue.
[2017-05-17] MEDS: Pantoprazole 40 mg EC Tab PO SCH (11:00)
[2017-05-17] MEDS ORDERED: Sodium Chloride 0.9% 1,000 ML IV SCH (12:30)
--- NOTE | 2017-05-17 12:31 | CP.PCM.PN ---
Subjective - Date & Time of Evaluation Date of Evaluation: 05/17/17 Time of Evaluation: 12:27 - Subjective Subjective: Patient s/p L Cx BARNEY stent Uneventful OOB to chair or ambulate after 5pm today if okay from ortho Hydration Labs Resume diet ASA 81, B blockers and Statin daily for life if no contra indication Plavix 75 daily for 1 year Staged PCI of RCA and LAD after 4 weeks F/U with my office in 1-2 weeks Will reassess her in am for potential discharge Objective - Vital Signs/Intake and Output Vital Signs (last 24 hours): Temp Pulse Resp BP Pulse Ox 98 F 77 18 169/88 H 98 05/17/17 09:17 05/17/17 09:17 05/17/17 09:17 05/17/17 09:22 05/17/17 09:17 - Medications Medications: Current Medications Acetaminophen (Tylenol 325mg Tab) 650 mg PO Q6 PRN PRN Reason: Pain, Mild (1-3) Last Admin: 05/16/17 20:09 Dose: 650 mg Amlodipine Besylate (Norvasc) 10 mg PO DAILY [facility] Last Admin: 05/17/17 09:22 Dose: 10 mg Aspirin (Aspirin Chewable) 81 mg PO DAILY [facility] Last Admin: 05/17/17 10:00 Dose: Not Given Heparin Sodium (Porcine) (Heparin) 5,000 units SC Q8 [facility] Last Admin: 05/17/17 05:18 Dose: 5,000 units Losartan Potassium (Cozaar) 100 mg PO DAILY [facility] Last Admin: 05/17/17 09:22 Dose: 100 mg Metoprolol Tartrate (Lopressor) 25 mg PO BID [facility] Last Admin: 05/17/17 09:22 Dose: 25 mg Oxycodone/Acetaminophen (Percocet 5/325 Mg Tab) 1 tab PO Q4H PRN PRN Reason: Pain Stop: 05/18/17 21:15 Pantoprazole Sodium (Protonix Ec Tab) 40 mg PO DAILY [facility] Last Admin: 05/17/17 11:00 Dose: Not Given Rosuvastatin Calcium (Crestor) 10 mg PO HS [facility] Last Admin: 05/16/17 21:08 Dose: 10 mg Fluticasone/Salmeterol (Advair Diskus 250/50) 1 puff IH RBID [facility] Last Admin: 05/17/17 10:00 Dose: Not Given Tiotropium [place] (Spiriva) 18 mcg INH RQ24 [facility] Last Admin: 05/17/17 10:01 Dose: Not Given - Labs Labs: 05/17/17 06:58 05/17/17 06:58 PT 12.9 SECONDS (9.7-12.2) H 05/16/17 07:17 INR 1.2 05/16/17 07:17 APTT 58 SECONDS (21-34) H D 05/16/17 07:17
--- NOTE | 2017-05-17 15:55 | CARD ---
APPROVED REPORT EKG Measurement Heart [id number] 176P51 [id number] <Conclusion> Normal sinus rhythm Possible Left atrial enlargement Inferior infarct, age undetermined Abnormal ECG
--- NOTE | 2017-05-17 16:46 | CARD ---
APPROVED REPORT EKG Measurement Heart [id number] MA 170P56 [id number] <Conclusion> Normal sinus rhythm Possible Left atrial enlargement Inferior infarct, age undetermined T wave abnormality, consider anterior ischemia Abnormal ECG
[2017-05-17 19:22] VITALS: RESP 20
[2017-05-18 07:51] LABS: BASO # 0.1 K/uL (0.0-0.2); EOS # 0.4 K/uL (0.0-0.7); EOS % 8.5 % (0.0-4.0); HEMOGLOBIN 10.7 g/dL (11.0-16.0); LYMPH # 1.8 K/uL (1.0-4.3); LYMPH % 35.1 % (20.0-40.0); MEAN CELL VOLUME 84.8 fL (81.0-99.0); MEAN CORPUSCULAR HEMOGLOBIN 27.7 pg (27.0-31.0); MEAN CORPUSCULAR HGB CONC 32.7 g/dL (33.0-37.0); MEAN PLATELET VOLUME 9.8 fL (7.2-11.7); MONO # 0.5 K/uL (0.0-0.8); MONO % 9.6 % (0.0-10.0); NEUT # 2.3 K/uL (1.8-7.0); NEUT % 45.8 % (50.0-75.0); NRBC % 0.1 % (0.0-2.0); RBC 3.85 Mil/uL (3.80-5.20); RED CELL DISTRIBUTION WIDTH 16.1 % (11.5-14.5); WHITE BLOOD COUNT 5.1 K/uL (4.8-10.8)
[2017-05-18 08:09] VITALS: BP 162/92; PULSE 85; TEMP 98.2; O2SAT 100
[2017-05-18 08:17] LABS: ALB/GLOB RATIO 1.1 (1.0-2.1); ALBUMIN 3.3 g/dL (3.5-5.0); ALT/SGPT 35 U/L (9-52); AST/SGOT 27 U/L (14-36); BLOOD UREA NITROGEN 18 mg/dL (7-17); CALCIUM 9.3 mg/dl (8.6-10.4); GFR AFRICAN-AMERICAN > 60; GFR NON-AFRICAN AMERICAN > 60
--- NOTE | 2017-05-18 09:14 | CP.PCM.PN ---
Subjective - Date & Time of Evaluation Date of Evaluation: 05/18/17 Time of Evaluation: 09:12 - Subjective Subjective: PGY2 Medicine Note for Dr. Blue, all management as per Dr. Blue The patient was seen and examined at bedside this AM; she had no overnight events as well as no acute events. Objective - Vital Signs/Intake and Output Vital Signs (last 24 hours): Temp Pulse Resp BP Pulse Ox 98.2 F 85 20 162/92 H 100 05/18/17 07:50 05/18/17 07:50 05/18/17 07:50 05/18/17 07:50 05/18/17 07:50 Intake and Output: 05/18/17 05/18/17 06:59 18:59 Intake Total 560 Output Total 200 Balance 360 - Medications Medications: Current Medications Acetaminophen (Tylenol 325mg Tab) 650 mg PO Q6 PRN PRN Reason: Pain, Mild (1-3) Last Admin: 05/16/17 20:09 Dose: 650 mg Amlodipine Besylate (Norvasc) 10 mg PO DAILY [facility] Last Admin: 05/17/17 09:22 Dose: 10 mg Aspirin (Aspirin Chewable) 81 mg PO DAILY [facility] Last Admin: 05/17/17 10:00 Dose: Not Given Clopidogrel Bisulfate (Plavix) 75 mg PO DAILY [facility] Heparin Sodium (Porcine) (Heparin) 5,000 units SC Q8 [facility] Last Admin: 05/18/17 05:39 Dose: 5,000 units Sodium Chloride (Sodium Chloride 0.9%) 1,000 mls @ 70 mls/hr IV .[id number] [facility] Last Admin: 05/17/17 22:06 Dose: Not Given Losartan Potassium (Cozaar) 100 mg PO DAILY [facility] Last Admin: 05/17/17 09:22 Dose: 100 mg Metoprolol Tartrate (Lopressor) 25 mg PO BID [facility] Last Admin: 05/17/17 18:00 Dose: Not Given Oxycodone/Acetaminophen (Percocet 5/325 Mg Tab) 1 tab PO Q4H PRN PRN Reason: Pain Stop: 05/18/17 21:15 Pantoprazole Sodium (Protonix Ec Tab) 40 mg PO DAILY [facility] Last Admin: 05/17/17 11:00 Dose: Not Given Rosuvastatin Calcium (Crestor) 10 mg PO HS [facility] Last Admin: 05/17/17 22:02 Dose: 10 mg Fluticasone/Salmeterol (Advair Diskus 250/50) 1 puff IH RBID [facility] Last Admin: 05/17/17 20:52 Dose: 1 inhaler Tiotropium [place] (Spiriva) 18 mcg INH RQ24 [facility] Last Admin: 05/17/17 10:01 Dose: Not Given - Labs Labs: 05/18/17 07:35 05/18/17 07:35 PT 12.9 SECONDS (9.7-12.2) H 05/16/17 07:17 INR 1.2 05/16/17 07:17 APTT 58 SECONDS (21-34) H D 05/16/17 07:17 - Head Exam Additional comments: Appears: Non-toxic - Head Exam Head Exam: ATRAUMATIC - Eye Exam Eye Exam: EOMI Pupil Exam: PERRL - ENT Exam ENT Exam: Mucous Membranes Moist - Neck Exam Neck Exam: Full ROM - Respiratory Exam Respiratory Exam: Clear to Ausculation Bilateral, NORMAL BREATHING PATTERN. absent: Rales, Rhonchi, Wheezes - Cardiovascular Exam Cardiovascular Exam: REGULAR RHYTHM, +S1, +S2 - GI/Abdominal Exam GI & Abdominal Exam: Soft, Normal Bowel Sounds - Extremities Exam Extremities Exam: absent: Calf Tenderness - Neurological Exam Neurological Exam: Alert, Awake, Oriented x3 - Psychiatric Exam Psychiatric exam: Normal Affect Assessment and Plan - Assessment and Plan (Free Text) Assessment: 72yo F admitted for unstable angina Unstable angina 05/17: patient is being transported to [place] for cath and stenting; will be transported back after procedure is completed; results to [facility] [place] 05/16: Troponins (+) x3. CKMB negative x2. EKG's grossly negative / unchanged x2. Scheduled for cardiac cath with Dr. Blanton today. -EKG 05/15/17 - Normal sinus rhythm, Possible Left atrial enlargement, Inferior infarct, age undetermined, T wave abnormality, consider anterior ischemia, Abnormal ECG -CXR - negative -Troponin #1 (+) -Cardiology consult, Dr. Blanton, f/u recs -BNP 2380 -Echo WNL -Prior Stress test 02/2017 - normal SPECT myocardial perfusion study, fixed anteroseptal / apical defects likely 2/2 breast -attenuation; normal gated wall motion of L ventricle. -f/u TASHA's x2 -f/u EKG x2 -oxygen via NC 2L -Tylenol 650mg PO Q6H PRN pain -ASA 81mg -Crestor 10mg PO HS GERD; chronic 05/16: epigastric burning resolved today. - Protonix 40mg PO qD - f/u stool H. Pylori - patient reports she completed her prior tx of antibiotics + omeprazole. HTN;chronic - Continue home medications: amlodipine and cozaar - will continue to monitor -A1c 5.4, TSH pending, Free T4 1.2, Lipids WNL (HDL 42L). COPD;chronic not in acute exacerbation - Continue Advair and spiriva The patient is stable for d/c as per Dr. Blue The patient will continue the following medications: Amlodipine 10mg daily Aspirin 81mg daily Plavix 75mg for one year Losartan 100mg daily Crestor 20mg at night Toprol XL 50mg c/w Advair and spiriva Given script for rolling walker, bedside commode, and shower chair as well as longterm and PT in chart Echo shows diastolic heart failure; will continue with above management as EF is preserved Patient is to f/u with Dr. Blanton in 1 week; will have further stenting as per Dr. Blanton patient has no signs of systolic heart failure Congested Heart Failure - CM - Type of Heart Failure: Diastolic dysfunction:: Chronic - LVF prior to this hospilization,if known LVF prior to this hospilization: Election Fraction greater than 40% Definitive Plan: will have more PCI as per malcolm; c/w with medical management for diastolic dysfunction - Ejection Fraction % Fraction %: 55 - MERA or ARB MERA or ARB: Name/dose/frequency: Losartan 100mg daily - Beta Tori Beta Tori prescribed: Name/dose/frequency: Toprol XL 50mg - Digoxin Contraindication: Not indicated - Diuretic Diuretic Therapy (lasix, thiazides, aldactone) (francie for EF less than 30%): not indicated - Nitrate Therapy Nitrate Therapy:: not indicated - Hydralazine Hydralazine:: not indicated - Smoking Cessation Smoking Cessation Counseling: Nonsmoker: Has not smoked within 12 months - Recommendation Recommendation for ICD referral or CTR: No - Followup Appointment Follow Up appointment: 05/25/17 Follow Up with: Kelvin Blanton
[2017-05-18] MEDS: Tiotropium 18 mcg Cap For Inhalation INH SCH (09:27)
[2017-05-18] MEDS: Fluticasone-Salmeterol 250-50mcg Diskus IH SCH (09:27)
[2017-05-18] MEDS: Pantoprazole 40 mg EC Tab PO SCH (10:39)
--- NOTE | 2017-05-18 11:02 | CARD ---
APPROVED REPORT EKG Measurement Heart [id number] [place] 174P52 [id number] <Conclusion> Normal sinus rhythm Possible Left atrial enlargement Inferior infarct, age undetermined T wave abnormality, consider anterior ischemia Abnormal ECG
== END 2017-05-18 16:50 | disposition home or self-care (01) | DRG 281 ==
LOC: C.ER 09:17 → C.9E 11:24 → OBSVTOIN 11:24 → C.6T 17:25
PROVIDERS: ADMIT Internal Medicine Pulmonary Disease; ATTEND Internal Medicine Pulmonary Disease
PROC: 4A023N7 Measurement of Cardiac Sampling and Pressure, Left Heart, Percutaneous Approach (ICD-10-PCS; principal; 2017-05-16)
PROC: B2111ZZ Fluoroscopy of Multiple Coronary Arteries using Low Osmolar Contrast (ICD-10-PCS; 2017-05-16)
DX: I21.4 Non-ST elevation (NSTEMI) myocardial infarction (principal); I50.30 Unspecified diastolic (congestive) heart failure; I11.0 Hypertensive heart disease with heart failure; J44.9 Chronic obstructive pulmonary disease, unspecified; I25.110 Atherosclerotic heart disease of native coronary artery with unstable angina pectoris; F17.200 Nicotine dependence, unspecified, uncomplicated; E78.5 Hyperlipidemia, unspecified; K21.9 Gastro-esophageal reflux disease without esophagitis; Z96.651 Presence of right artificial knee joint

== ENCOUNTER 2018-06-13 16:44 | Inpatient (IN) | payer MEDICARE, OTHER ==
[2018-06-13 16:45] VITALS: BMI 27.3
--- NOTE | 2018-06-13 18:10 | C.PDOC ---
History Of Present Illness 73 year old female sent from Dr. Blanton's clinic for admission for visual disturbances and high blood pressure. Patient states that she has some eye irritation and her vision becomes blurry when she blinks. Patient has a PMHx of hypertension, CAD s/p stent placed last year, and total right knee replacement. Patient states that she was at 's office for a routine visit. Patient states that she tool her hypertension medication this morning. Patient also complains of some right knee pain. Patient denies headache, dizziness, SOB, chest pain, and palpitations. Time Seen by Provider: 06/13/18 17:10 Chief Complaint (Nursing): High Blood Pressure History Per: Patient History/Exam Limitations: no limitations Current Symptoms Are (Timing): Still Present Associated Symptoms: Blurred Vision. denies: Chest Pain, Dizziness, Headache Past Medical History Reviewed: Historical Data, Nursing Documentation, Vital Signs Vital Signs: Last Vital Signs Temp 98.6 F 06/13/18 16:53 Pulse 62 06/13/18 16:53 Resp 20 06/13/18 16:53 BP 222/103 H 06/13/18 16:53 Pulse Ox 98 06/13/18 16:53 - Medical History PMH: Arthritis, Bronchitis, CAD (s/p stents placed 1 year ago), COPD, GERD, HTN Denies: Chronic Kidney Disease Other Surgeries: Total knee replacement (right knee) - [facility] (04/11/17) CYSTOCELE REPAIR (09/14/97) CYSTOGRAM NEC (07/06/97) CYSTOMETROGRAM (07/06/97) CYSTOSCOPY NEC (09/14/97) FLUOROSCOPY OF MULT COR ART USING L OSM CONTRAST (05/15/17) MEASURE OF CARDIAC SAMPL & PRESSURE, L HEART, PERC APPROACH (05/15/17) OTHER CYSTOSTOMY (09/14/97) SUPRAPUBIC SLING OP (09/14/97) Family History: States: Unknown Family Hx - Social History Hx Tobacco Use: No Hx Alcohol Use: No Hx Substance Use: No - Immunization History Hx Tetanus Toxoid Vaccination: Yes Hx Influenza Vaccination: Yes (03/2017) Hx Pneumococcal Vaccination: Yes (03/2017) Review Of Systems Eyes: Positive for: Vision Change (blurry vision with blinking from eye irritation) Cardiovascular: Negative for: Chest Pain, Palpitations Respiratory: Negative for: Shortness of Breath Musculoskeletal: Positive for: Other (right knee pain ) Neurological: Negative for: Headache, Dizziness Physical Exam - Physical Exam Appears: Non-toxic, Other (hypertensive) Skin: Normal Color, Warm, Dry Head: Atraumatic, Normacephalic Eye(s): bilateral: Normal Inspection, PERRL Neck: Normal ROM, Supple Chest: Symmetrical, No Deformity Cardiovascular: Rhythm Regular, No Murmur Respiratory: No Accessory Muscle Use, No Rales, No Rhonchi, No Wheezing Gastrointestinal/Abdominal: Soft, No Tenderness Extremity: Capillary Refill (<2 seconds) Neurological/Psych: Oriented x3, Normal Speech, Normal Cognition ED Course And Treatment O2 Sat by Pulse Oximetry: 98 (in RA) Medical Decision Making Medical Decision Making: Impression: 73 year old female sent from Dr. Blanton's clinic for admission for visual disturbances and high blood pressure. Plan: Patient admitted to Telemetry under Dr. Blanton Patient given Apresoline IVP Disposition Discussed With : Kelvin Blanton - Disposition Disposition: HOSPITALIZED Disposition Time: 18:09 Condition: GUARDED - Clinical Impression Clinical Impression: Hypertension - Scribe Statement The provider has reviewed the documentation as recorded by the Scribe (Ria Jimenez) All medical record entries made by the Scribe were at my direction and personally dictated by me. I have reviewed the chart and agree that the record accurately reflects my personal performance of the history, physical exam, medical decision making, and the department course for this patient. I have also personally directed, reviewed, and agree with the discharge instructions and disposition. Decision To Admit - Pt Status Changed To: Hospital Disposition Of: Observation - . Bed Request Type: Telemetry Admitting Physician: Kelvin Blanton Patient Diagnosis: Hypertension
[2018-06-13 19:51] LABS: BASO % 0.6 % (0.0-2.0); EOS # 0.1 K/uL (0.0-0.7); LYMPH # 1.7 K/uL (1.0-4.3); LYMPH % 36.8 % (20.0-40.0); MEAN CELL VOLUME 85.9 fL (81.0-99.0); MEAN CORPUSCULAR HEMOGLOBIN 27.2 pg (27.0-31.0); MEAN CORPUSCULAR HGB CONC 31.7 g/dL (33.0-37.0); MEAN PLATELET VOLUME 10.6 fL (7.2-11.7); MONO # 0.5 K/uL (0.0-0.8); MONO % 10.4 % (0.0-10.0); NEUT # 2.4 K/uL (1.8-7.0); NEUT % 50.2 % (50.0-75.0); NRBC % 0.1 % (0.0-2.0); RBC 5.06 Mil/uL (3.80-5.20); RED CELL DISTRIBUTION WIDTH 15.4 % (11.5-14.5); WHITE BLOOD COUNT 4.7 K/uL (4.8-10.8)
[2018-06-13 19:55] LABS: HEMOGLOBIN 13.8 g/dL (11.0-16.0)
[2018-06-13 20:04] LABS: ALB/GLOB RATIO 1.3 (1.0-2.1); ALBUMIN 4.1 g/dL (3.5-5.0); ALT/SGPT 8 U/L (9-52); AST/SGOT 24 U/L (14-36); BLOOD UREA NITROGEN 18 mg/dL (7-17); CALCIUM 9.2 mg/dl (8.6-10.4); GFR NON-AFRICAN AMERICAN > 60
[2018-06-13] MEDS ORDERED: Acetaminophen-Codeine 300/30 mg Tab PO PRN (21:49)
--- NOTE | 2018-06-13 22:06 | CP.PCM.HP ---
History of Present Illness - History of Present Illness History of Present Illness: Chief complaint: Elevated blood pressure HPI: 73-year-old female came to the emergency room after she visited plunger machine operator today, patient went to see the plunger machine operator today as a routine follow-up visit, during that time patient was noted to have very highly elevated blood pressure, without any symptoms. At the time patient was sent to the emergency room because of the very highly elevated blood pressure in spite of multiple medica tions. Patient did not have any symptoms including headache, no chest pain or shortness of breath. But the patient is suffering from severe pain over the right knee joint, patient had a right knee replacement in March 2017, after the surgery patient started having increasing symptoms. Patient was seen by orthopedic surgeon as a second opinion, and concerned that she has had some changes which needs to be addressed and she may need revision surgery, but the patient is currently being managed by physical therapy. When she is walking her symptoms of pain improved, but when she is resting, when she is lying down the pain is excruciating, taking pain medications. Patient currently having no other acute symptoms, currently the blood pressure slightly better, received hydralazine IV in the emergency room. Past medical history: Hypertension, hypercholesterolemia, CAD, status post stent, osteoarthritis Surgical history: Right knee total knee replacement done 1 year ago She had left circumflex stent. Personal history: Non-smoker nonalcoholic Patient is currently retired Allergies no known drug allergies Family history significant for high blood pressure and diabetes. Review of system: Patient is currently having no headache, denies any chest pain or shortness of breath, severe right knee pain noted, has minimal swelling noted, unable to move around, but once she started walking she is feeling some improvement in the pain noted On examination: Vital signs are stable otherwise, elevated systolic blood pressure noted, chest good air entry bilaterally, regular Hs, no pedal edema noted HUMAN RESOURCES TRAINING MANAGER alert awake oriented x3 no functional neurological deficit , nontender abdomen EKG showing evidence of no ST-T changes noted. But the T wave inversion in the lateral leads noted nonspecific. Assessment and recommendation: 73-year-old female with a history of CAD, hypertension, status post stent, hypercholesterolemia, and history of suspected COPD admitted to the hospital with acute and elevated blood pressure. no significant symptoms. Labs reviewed Continue to monitor the blood pressure. Nephrology evaluation. Cardiology workup. DVT and GI prophylaxis. We will follow the patient Present on Admission - Present on Admission Any Indicators Present on Admission: No History of DVT/PE: No History of Uncontrolled Diabetes: No Urinary Catheter: No Decubitus Ulcer Present: No Past Patient History - Infectious Disease Hx of Infectious Diseases: None - Past Social History Smoking Status: Never Smoked - CARDIAC Hx Hypertension: Yes - PULMONARY Hx Bronchitis: Yes Hx Chronic Obstructive Pulmonary Disease (COPD): Yes - NEUROLOGICAL Hx Neurological Disorder: No - HEENT Hx HEENT Problems: No - RENAL Hx Chronic Kidney Disease: No - ENDOCRINE/METABOLIC Hx Endocrine Disorders: No - HEMATOLOGICAL/ONCOLOGICAL Hx Blood Disorders: No Hx Blood Transfusions: No - INTEGUMENTARY Hx Dermatological Problems: No - MUSCULOSKELETAL/RHEUMATOLOGICAL Hx Arthritis: Yes - GASTROINTESTINAL Hx Gastrointestinal Disorders: Yes Hx Gastroesophageal Reflux: Yes - GENITOURINARY/GYNECOLOGICAL Hx Genitourinary Disorders: No - PSYCHIATRIC Hx Substance Use: No - SURGICAL HISTORY Hx Surgeries: Yes Hx Orthopedic Surgery: Yes (Right knee replacement) - ANESTHESIA Hx Anesthesia: Yes Hx Anesthesia Reactions: No Hx Malignant Hyperthermia: No Meds Allergies/Adverse Reactions: Allergies Allergy/AdvReac Type Severity Reaction Status Date / Time No Known Allergies Allergy Verified 06/13/18 16:54 Results - Vital Signs Recent Vital Signs: Last Vital Signs Temp 98 F 06/13/18 20:07 Pulse 69 06/13/18 20:07 Resp 20 06/13/18 20:07 BP 192/94 H 06/13/18 20:07 Pulse Ox 98 06/13/18 20:07 - Labs Result Diagrams: 06/13/18 19:43 06/13/18 19:43 Labs: Laboratory Results - last 24 hr 06/13/18 06/13/18 19:43 19:43 WBC 4.7 L RBC 5.06 Hgb 13.8 D Hct 43.5 MCV 85.9 MCH 27.2 MCHC 31.7 L RDW 15.4 H Plt Count 178 MPV 10.6 Neut % (Auto) 50.2 Lymph % (Auto) 36.8 [place] % (Auto) 10.4 H Eos % (Auto) 2.0 Baso % (Auto) 0.6 Neut # (Auto) 2.4 Lymph # (Auto) 1.7 [place] # (Auto) 0.5 Eos # (Auto) 0.1 Baso # (Auto) 0.0 Sodium 140 Potassium 4.3 Chloride 107 Carbon Dioxide 25 Anion Gap 12 BUN 18 H Creatinine 0.9 Est GFR ( Amer) > 60 Est GFR (Non-Af Amer) > 60 Random Glucose 87 Calcium 9.2 Total Bilirubin 0.4 AST 24 ALT 8 L D Alkaline Phosphatase 131 H D Troponin I < 0.0120 Total Protein 7.1 Albumin 4.1 Globulin 3.0 Albumin/Globulin Ratio 1.3
[2018-06-14] MEDS ORDERED: Fluticasone-Vilanterol 100/25mcg Diskus INH SCH (08:00)
[2018-06-14] MEDS: Enoxaparin 40 mg Syringe SC SCH (09:24)
[2018-06-14] MEDS: Metoprolol Succinate 100 mg XL Tab PO SCH (09:24)
--- NOTE | 2018-06-14 14:31 | CP.PCM.CON ---
History of Present Illness - History of Present Illness History of Present Illness: Nephrology Consultation Note: Assessment: Stable uncontrolled severe HTN with urgency CAD s/p stent and hyperlipidemia Vit d deficiency osteoarthritis s/p Rt TKR LVH COPD Plan No acute need for renal replacement therapy at this time. Hypertension control with meds as ordered. Maintain hemodynamics stable. Avoid hypotension. Patient on losartan 100 mg/d. also on toprol XL. resume CCB as norvasc 10 mg/d. add thiazide diuretic as chlorthalidone 25 mg/d. in addition will give prn hydralazine. Monitor Input/Output, daily weights and renal function with basic metabolic panel supplement lytes as needed Check UA, urine spot protein/creatinine, albumin/creatinine ratio, urine Na Secondary HTN work up with plasma renin/aldosterone, plasma metanephrine and renal artery Doppler to r/o renal artery stenosis, TSH, Vit D level Dose meds/antibiotics (if needed) for GFR>60 Glycemic control. Further work up/management as per primary team Thanks for allowing me to participate in care of your patient. Will follow patient with you. Please call if any Qs. had d/w team Dr Juan J De Paz Office: [phone] Chief Complaint; high BP Reason for consult: HTN urgency HPI: Pt is a 73 F with hx of hypertension (40 years) CAD s/p stent, COPD, osteoarthritis s/p Rt TKR and hyperlipidemia presented with complaints of BP in 220 range hence admitted with HTN urgency. Denies OTC/herbal meds or NSAIDs No recent iodinated contrast exposure. pt says BP has been high for last few months. has been better controlled prior to that denies smoking/etoh/drugs/nsaids/decongestants as sudafed/otc meds/licorice has allergic nasal congestion. she feels in usual health otherwis ROS: Cardiovascular: No chest pain. Pulmonary: No shortness of breath Gastrointestinal: denies abdominal pain No nausea. No vomiting. Genitourinary: No pain while urinating. Denies blood in urine. All other negative except as mentioned in HPI. Physical Examination: General Appearance: Comfortable, in no acute respiratory distress, co-operative . Vitals reviewed and noted as below Head; Atraumatic, normocephalic ENT: no ulcers no thrush. Tongue is midline. Oropharynx: no rash or ulcers. EYES: Pupils are equal, round and reactive to light accommodation. Eye muscles and extraocular movement intact. Sclera is anicteric. Neck; supple no lymphadenopathy, no thyromegaly or bruit Lungs: Normal respiratory rate/effort. Breath sounds bilateral equal and clear Heart: Normal rate. s1s2 normal. No rub or gallop. Extremities: no edema. No varicose veins Neurological: Patient is alert, awake and oriented to person, place and time. No focal deficit. Strength bilateral appropriate and equal Skin: Warm and dry. Normal turgor. No rash. Palpitation: Normal elasticity for age Abdomen: Abdomen is soft. Bowel sounds +. There is no abdominal tenderness, no guarding/rigidity no organomegaly Psych: normal insight and normal affect/mood MSK: no joint tenderness or swelling. Digits and nails normal, no deformity : kidney or bladder not palpable Labs/imaging reviewed. Past medical history, past surgical history, family history, social history, allergy reviewed and noted as below Family hx: no hx of CKD. Rest non-contributory echo: mild concentric LVH renal imaging 2018 WNL including adrenals Past Patient History - Infectious Disease Hx of Infectious Diseases: None - Past Social History Smoking Status: Never Smoked - CARDIAC Hx Hypertension: Yes - PULMONARY Hx Bronchitis: Yes Hx Chronic Obstructive Pulmonary Disease (COPD): Yes - NEUROLOGICAL Hx Neurological Disorder: No - HEENT Hx HEENT Problems: No - RENAL Hx Chronic Kidney Disease: No - ENDOCRINE/METABOLIC Hx Endocrine Disorders: No - HEMATOLOGICAL/ONCOLOGICAL Hx Blood Disorders: No Hx Blood Transfusions: No - INTEGUMENTARY Hx Dermatological Problems: No - MUSCULOSKELETAL/RHEUMATOLOGICAL Hx Arthritis: Yes - GASTROINTESTINAL Hx Gastrointestinal Disorders: Yes Hx Gastroesophageal Reflux: Yes - GENITOURINARY/GYNECOLOGICAL Hx Genitourinary Disorders: No - PSYCHIATRIC Hx Substance Use: No - SURGICAL HISTORY Hx Surgeries: Yes Hx Orthopedic Surgery: Yes (Right knee replacement) - ANESTHESIA Hx Anesthesia: Yes Hx Anesthesia Reactions: No Hx Malignant Hyperthermia: No Meds Allergies/Adverse Reactions: Allergies Allergy/AdvReac Type Severity Reaction Status Date / Time No Known Allergies Allergy Verified 06/13/18 16:54 - Medications Medications: Current Medications Acetaminophen/Codeine Phosphate (Tylenol/Codeine 300 Mg/30 Mg) 1 ea PO Q6 PRN PRN Reason: Pain, moderate (4-7) Amlodipine Besylate (Norvasc) 10 mg PO DAILY [facility] Last Admin: 06/14/18 13:01 Dose: 10 mg Aspirin (Ecotrin) 81 mg PO DAILY [facility] Last Admin: 06/14/18 09:25 Dose: 81 mg Chlorthalidone (Hygroton) 25 mg PO DAILY [facility] Last Admin: 06/14/18 13:01 Dose: 25 mg Clopidogrel Bisulfate (Plavix) 75 mg PO DAILY [facility] Last Admin: 06/14/18 09:23 Dose: 75 mg Enoxaparin Sodium (Lovenox) 40 mg SC DAILY [facility] Last Admin: 06/14/18 09:24 Dose: Not Given Ergocalciferol (Drisdol 50,000 Intl Units Cap) 1 cap PO QWK [facility] Famotidine (Pepcid) 20 mg PO HS [facility] Last Admin: 06/13/18 22:29 Dose: 20 mg Fluticasone/Vilanterol (Breo Ellipta 100-25 Mcg Inh) 1 puff INH RQ24 [facility] Hydralazine HCl (Apresoline) 25 mg PO Q4 PRN PRN Reason: Other Losartan Potassium (Cozaar) 100 mg PO DAILY [facility] Last Admin: 06/14/18 09:24 Dose: 100 mg Metoprolol Succinate (Toprol Xl) 100 mg PO DAILY [facility] Last Admin: 06/14/18 09:24 Dose: 100 mg Rosuvastatin Calcium (Crestor) 20 mg PO HS [facility] Last Admin: 06/13/18 22:29 Dose: 20 mg Tiotropium [place] (Spiriva Inhalation Handihaler Device) 1 inhaler INH RQD [facility] Tiotropium [place] (Spiriva) 18 mcg INH RQ24 [facility] Results - Vital Signs Recent Vital Signs: Last Vital Signs Temp 98.3 F 06/13/18 23:15 Pulse 61 06/14/18 13:57 Resp 18 06/13/18 23:15 BP 193/92 H 06/14/18 13:03 Pulse Ox 98 06/13/18 23:15 - Labs Result Diagrams: 06/13/18 19:43 06/13/18 19:43 Labs: Laboratory Results - last 24 hr 06/13/18 06/13/18 19:43 19:43 WBC 4.7 L RBC 5.06 Hgb 13.8 D Hct 43.5 MCV 85.9 MCH 27.2 MCHC 31.7 L RDW 15.4 H Plt Count 178 MPV 10.6 Neut % (Auto) 50.2 Lymph % (Auto) 36.8 [place] % (Auto) 10.4 H Eos % (Auto) 2.0 Baso % (Auto) 0.6 Neut # (Auto) 2.4 Lymph # (Auto) 1.7 [place] # (Auto) 0.5 Eos # (Auto) 0.1 Baso # (Auto) 0.0 Sodium 140 Potassium 4.3 Chloride 107 Carbon Dioxide 25 Anion Gap 12 BUN 18 H Creatinine 0.9 Est GFR ( Amer) > 60 Est GFR (Non-Af Amer) > 60 Random Glucose 87 Calcium 9.2 Total Bilirubin 0.4 AST 24 ALT 8 L D Alkaline Phosphatase 131 H D Troponin I < 0.0120 Total Protein 7.1 Albumin 4.1 Globulin 3.0 Albumin/Globulin Ratio 1.3
[2018-06-14 23:17] LABS: SQUAMOUS EPITHIAL 2 /hpf (0-5); URINE BILIRUBIN NEGATIVE (NEGATIVE); URINE BLOOD NEGATIVE (NEGATIVE); URINE CLARITY Clear (Clear); URINE COLOR Straw (YELLOW); URINE GLUCOSE (UA) NORMAL (Normal); URINE LEUKOCYTE ESTERASE NEG Leu/uL (Negative); URINE PROTEIN 1+ mg/dL (NEGATIVE); URINE UROBILINOGEN NORMAL mg/dL (0.2-1.0)
[2018-06-15] MEDS: Tiotropium 18 mcg Cap For Inhalation INH SCH (08:30)
--- NOTE | 2018-06-15 08:41 | CP.PCM.CON ---
History of Present Illness - History of Present Illness History of Present Illness: 73 year old female sent from my office for admission for visual disturbances and high blood pressure. Patient states that she has some eye irritation and her vision becomes blurry when she blinks. Patient has a PMHx of hypertension, CAD s/p stent placed last year, and total right knee replacement. Patient states that she was at 's office for a routine visit. Patient states that she tool her hypertension medication this morning. Patient also complains of some right knee pain. Patient denies headache, dizziness, SOB, chest pain, and palpitations. Chief Complaint (Nursing): High Blood Pressure History Per: Patient History/Exam Limitations: no limitations Current Symptoms Are (Timing): Still Present Associated Symptoms: Blurred Vision. denies: Chest Pain, Dizziness, Headache - Medical History PMH: Arthritis, Bronchitis, CAD (s/p stents placed 1 year ago), COPD, GERD, HTN Denies: Chronic Kidney Disease Other Surgeries: Total knee replacement (right knee) - [facility] (04/11/17) CYSTOCELE REPAIR (09/14/97) CYSTOGRAM NEC (07/06/97) CYSTOMETROGRAM (07/06/97) CYSTOSCOPY NEC (09/14/97) FLUOROSCOPY OF MULT COR ART USING L OSM CONTRAST (05/15/17) MEASURE OF CARDIAC SAMPL & PRESSURE, L HEART, PERC APPROACH (05/15/17) OTHER CYSTOSTOMY (09/14/97) SUPRAPUBIC SLING OP (09/14/97) Family History: States: Unknown Family Hx - Social History Hx Tobacco Use: No Hx Alcohol Use: No Hx Substance Use: No - Immunization History Hx Tetanus Toxoid Vaccination: Yes Hx Influenza Vaccination: Yes (03/2017) Hx Pneumococcal Vaccination: Yes (03/2017) Review Of Systems Eyes: Positive for: Vision Change (blurry vision with blinking from eye irritation) Cardiovascular: Negative for: Chest Pain, Palpitations Respiratory: Negative for: Shortness of Breath Musculoskeletal: Positive for: Other (right knee pain ) Neurological: Negative for: Headache, Dizziness Physical Exam - Physical Exam Appears: Non-toxic, Other (hypertensive) Skin: Normal Color, Warm, Dry Head: Atraumatic, Normacephalic Eye(s): bilateral: Normal Inspection, PERRL Neck: Normal ROM, Supple Chest: Symmetrical, No Deformity Cardiovascular: Rhythm Regular, No Murmur Respiratory: No Accessory Muscle Use, No Rales, No Rhonchi, No Wheezing Gastrointestinal/Abdominal: Soft, No Tenderness Extremity: Capillary Refill (<2 seconds) Neurological/Psych: Oriented x3, Normal Speech, Normal Cognition Past Patient History - Infectious Disease Hx of Infectious Diseases: None - Past Social History Smoking Status: Never Smoked - CARDIAC Hx Hypertension: Yes - PULMONARY Hx Bronchitis: Yes Hx Chronic Obstructive Pulmonary Disease (COPD): Yes - NEUROLOGICAL Hx Neurological Disorder: No - HEENT Hx HEENT Problems: No - RENAL Hx Chronic Kidney Disease: No - ENDOCRINE/METABOLIC Hx Endocrine Disorders: No - HEMATOLOGICAL/ONCOLOGICAL Hx Blood Disorders: No Hx Blood Transfusions: No - INTEGUMENTARY Hx Dermatological Problems: No - MUSCULOSKELETAL/RHEUMATOLOGICAL Hx Arthritis: Yes - GASTROINTESTINAL Hx Gastrointestinal Disorders: Yes Hx Gastroesophageal Reflux: Yes - GENITOURINARY/GYNECOLOGICAL Hx Genitourinary Disorders: No - PSYCHIATRIC Hx Substance Use: No - SURGICAL HISTORY Hx Surgeries: Yes Hx Orthopedic Surgery: Yes (Right knee replacement) - ANESTHESIA Hx Anesthesia: Yes Hx Anesthesia Reactions: No Hx Malignant Hyperthermia: No Meds Allergies/Adverse Reactions: Allergies Allergy/AdvReac Type Severity Reaction Status Date / Time No Known Allergies Allergy Verified 06/13/18 16:54 - Medications Medications: Current Medications Acetaminophen/Codeine Phosphate (Tylenol/Codeine 300 Mg/30 Mg) 1 ea PO Q6 PRN PRN Reason: Pain, moderate (4-7) Amlodipine Besylate (Norvasc) 10 mg PO DAILY [facility] Last Admin: 06/14/18 13:01 Dose: 10 mg Aspirin (Ecotrin) 81 mg PO DAILY [facility] Last Admin: 06/14/18 09:25 Dose: 81 mg Chlorthalidone (Hygroton) 25 mg PO DAILY [facility] Last Admin: 06/14/18 13:01 Dose: 25 mg Clopidogrel Bisulfate (Plavix) 75 mg PO DAILY [facility] Last Admin: 06/14/18 09:23 Dose: 75 mg Enoxaparin Sodium (Lovenox) 40 mg SC DAILY [facility] Last Admin: 06/14/18 09:24 Dose: Not Given Ergocalciferol (Drisdol 50,000 Intl Units Cap) 1 cap PO QWK [facility] Famotidine (Pepcid) 20 mg PO HS [facility] Last Admin: 06/14/18 23:27 Dose: Not Given Fluticasone/Vilanterol (Breo Ellipta 100-25 Mcg Inh) 1 puff INH RQ24 [facility] Hydralazine HCl (Apresoline) 25 mg PO Q4 PRN PRN Reason: Other Last Admin: 06/15/18 07:41 Dose: 25 mg Losartan Potassium (Cozaar) 100 mg PO DAILY [facility] Last Admin: 06/14/18 09:24 Dose: 100 mg Metoprolol Succinate (Toprol Xl) 100 mg PO DAILY [facility] Last Admin: 06/14/18 09:24 Dose: 100 mg Rosuvastatin Calcium (Crestor) 20 mg PO HS [facility] Last Admin: 06/14/18 23:26 Dose: Not Given Tiotropium [place] (Spiriva Inhalation Handihaler Device) 1 inhaler INH RQD [facility] Tiotropium [place] (Spiriva) 18 mcg INH RQ24 [facility] Last Admin: 06/15/18 08:30 Dose: Not Given Results - Vital Signs Recent Vital Signs: Last Vital Signs Temp 97.9 F 06/15/18 07:07 Pulse 65 06/15/18 08:00 Resp 18 06/15/18 07:07 BP 181/88 H 06/15/18 07:45 Pulse Ox 98 06/15/18 07:59 - Labs Result Diagrams: 06/13/18 19:43 06/13/18 19:43 Labs: Laboratory Results - last 24 hr 06/14/18 06/14/18 06/15/18 22:54 22:54 06:53 25-OH Vitamin D Total 25.2 L TSH 3rd Generation Urine Color Straw Urine Clarity Clear Urine pH 6.0 Ur Specific Junior 1.008 Urine Protein 1+ H Urine Glucose (UA) Normal Urine Ketones Negative Urine Blood Negative Urine Nitrate Negative Urine Bilirubin Negative Urine Urobilinogen Normal Ur Leukocyte Esterase Neg Urine WBC (Auto) < 1 Urine RBC (Auto) 1 Ur Squamous Epith Cells 2 U Random Total Protein 58.0 H Ur Random Sodium 91 06/15/18 06:53 25-OH Vitamin D Total TSH 3rd Generation 1.73 Urine Color Urine Clarity Urine pH Ur Specific Junior Urine Protein Urine Glucose (UA) Urine Ketones Urine Blood Urine Nitrate Urine Bilirubin Urine Urobilinogen Ur Leukocyte Esterase Urine WBC (Auto) Urine RBC (Auto) Ur Squamous Epith Cells U Random Total Protein Ur Random Sodium Assessment & Plan - Assessment and Plan (Free Text) Assessment: 73-year-old female with a history of CAD, hypertension, status post stent, hypercholesterolemia, and history of suspected COPD admitted to the hospital with acute and elevated blood pressure. no significant symptoms. Labs reviewed Continue to monitor the blood pressure. Nephrology evaluation. Cardiology workup. DVT and GI prophylaxis. We will follow the patient
[2018-06-15] MEDS: Metoprolol Succinate 100 mg XL Tab PO SCH (09:12)
[2018-06-15] MEDS: Enoxaparin 40 mg Syringe SC SCH (09:16)
--- NOTE | 2018-06-15 15:09 | CP.PCM.PN ---
Subjective - Date & Time of Evaluation Date of Evaluation: 06/15/18 Time of Evaluation: 15:08 - Subjective Subjective: Nephrology Consultation Note: Assessment: Stable uncontrolled severe HTN with urgency CAD s/p stent and hyperlipidemia Vit d deficiency osteoarthritis s/p Rt TKR LVH COPD Plan No acute need for renal replacement therapy at this time. Hypertension control with meds as ordered. Maintain hemodynamics stable. Avoid hypotension. Patient on losartan 100 mg/d. also on toprol XL. resume CCB as norvasc 10 mg/d. add thiazide diuretic as chlorthalidone 25 mg/d. in addition will give prn hydralazine. Monitor Input/Output, daily weights and renal function with basic metabolic panel supplement lytes as needed claritin for few days Check UA, urine spot protein/creatinine, albumin/creatinine ratio, urine Na Secondary HTN work up with plasma renin/aldosterone, plasma metanephrine and renal artery Doppler to r/o renal artery stenosis, TSH, Vit D level Dose meds/antibiotics (if needed) for GFR>60 Glycemic control. Further work up/management as per primary team Thanks for allowing me to participate in care of your patient. Will follow patient with you. Please call if any Qs. had d/w team Dr Juan J De Paz Office: [phone] Chief Complaint; high BP Reason for consult: HTN urgency HPI: Pt is a 73 F with hx of hypertension (40 years) CAD s/p stent, COPD, osteoarthritis s/p Rt TKR and hyperlipidemia presented with complaints of BP in 220 range hence admitted with HTN urgency. Denies OTC/herbal meds or NSAIDs No recent iodinated contrast exposure. pt says BP has been high for last few months. has been better controlled prior to that denies smoking/etoh/drugs/nsaids/decongestants as sudafed/otc meds/licorice has allergic nasal congestion. she feels in usual health otherwis ROS: has nasal congestion and sneezng Cardiovascular: No chest pain. Pulmonary: No shortness of breath Gastrointestinal: denies abdominal pain No nausea. No vomiting. Genitourinary: No pain while urinating. Denies blood in urine. All other negative except as mentioned in HPI. Physical Examination: General Appearance: Comfortable, in no acute respiratory distress, co-operative . Vitals reviewed and noted as below Head; Atraumatic, normocephalic ENT: no ulcers no thrush. Tongue is midline. Oropharynx: no rash or ulcers. EYES: Pupils are equal, round and reactive to light accommodation. Eye muscles and extraocular movement intact. Sclera is anicteric. Neck; supple no lymphadenopathy, no thyromegaly or bruit Lungs: Normal respiratory rate/effort. Breath sounds bilateral equal and clear Heart: Normal rate. s1s2 normal. No rub or gallop. Extremities: no edema. No varicose veins Neurological: Patient is alert, awake and oriented to person, place and time. No focal deficit. Strength bilateral appropriate and equal Skin: Warm and dry. Normal turgor. No rash. Palpitation: Normal elasticity for age Abdomen: Abdomen is soft. Bowel sounds +. There is no abdominal tenderness, no guarding/rigidity no organomegaly Psych: normal insight and normal affect/mood MSK: no joint tenderness or swelling. Digits and nails normal, no deformity : kidney or bladder not palpable Labs/imaging reviewed. Past medical history, past surgical history, family history, social history, allergy reviewed and noted as below Family hx: no hx of CKD. Rest non-contributory echo: mild concentric LVH renal imaging 2018 WNL including adrenals Objective - Vital Signs/Intake and Output Vital Signs (last 24 hours): Temp Pulse Resp BP Pulse Ox 97.9 F 63 18 156/84 H 98 06/15/18 07:07 06/15/18 11:54 06/15/18 07:07 06/15/18 09:15 06/15/18 11:55 Intake and Output: 06/15/18 06/15/18 06:59 18:59 Intake Total 240 300 Balance 240 300 - Medications Medications: Current Medications Acetaminophen/Codeine Phosphate (Tylenol/Codeine 300 Mg/30 Mg) 1 ea PO Q6 PRN PRN Reason: Pain, moderate (4-7) Amlodipine Besylate (Norvasc) 10 mg PO DAILY [facility] Last Admin: 06/15/18 09:12 Dose: 10 mg Aspirin (Ecotrin) 81 mg PO DAILY [facility] Last Admin: 06/15/18 09:12 Dose: 81 mg Chlorthalidone (Hygroton) 25 mg PO DAILY [facility] Last Admin: 06/15/18 09:11 Dose: 25 mg Clopidogrel Bisulfate (Plavix) 75 mg PO DAILY [facility] Last Admin: 06/15/18 09:12 Dose: 75 mg Enoxaparin Sodium (Lovenox) 40 mg SC DAILY [facility] Last Admin: 06/15/18 09:16 Dose: Not Given Ergocalciferol (Drisdol 50,000 Intl Units Cap) 1 cap PO QWK [facility] Famotidine (Pepcid) 20 mg PO HS [facility] Last Admin: 06/14/18 23:27 Dose: Not Given Fluticasone/Vilanterol (Breo Ellipta 100-25 Mcg Inh) 1 puff INH RQ24 [facility] Hydralazine HCl (Apresoline) 25 mg PO Q4 PRN PRN Reason: Other Last Admin: 06/15/18 07:41 Dose: 25 mg Losartan Potassium (Cozaar) 100 mg PO DAILY [facility] Last Admin: 06/15/18 09:11 Dose: 100 mg Metoprolol Succinate (Toprol Xl) 100 mg PO DAILY [facility] Last Admin: 06/15/18 09:12 Dose: 100 mg Rosuvastatin Calcium (Crestor) 20 mg PO HS [facility] Last Admin: 06/14/18 23:26 Dose: Not Given Tiotropium [place] (Spiriva Inhalation Handihaler Device) 1 inhaler INH RQD [facility] Tiotropium [place] (Spiriva) 18 mcg INH RQ24 [facility] Last Admin: 06/15/18 08:30 Dose: Not Given - Labs Labs: 06/13/18 19:43 06/13/18 19:43
[2018-06-16] MEDS: Tiotropium 18 mcg Cap For Inhalation INH SCH (08:27)
[2018-06-16] MEDS: Metoprolol Succinate 100 mg XL Tab PO SCH (09:18)
[2018-06-16] MEDS: Enoxaparin 40 mg Syringe SC SCH (09:19)
--- NOTE | 2018-06-16 10:06 | CP.PCM.PN ---
Subjective - Date & Time of Evaluation Date of Evaluation: 06/15/18 Time of Evaluation: 17:20 - Subjective Subjective: Patient seen and evaluated Denies chest pain and dyspnea Renal consult appreciated Review Of Systems Eyes: Positive for: Vision Change (blurry vision with blinking from eye irritation) Cardiovascular: Negative for: Chest Pain, Palpitations Respiratory: Negative for: Shortness of Breath Musculoskeletal: Positive for: Other (right knee pain ) Neurological: Negative for: Headache, Dizziness Physical Exam - Physical Exam Appears: Non-toxic, Other (hypertensive) Skin: Normal Color, Warm, Dry Head: Atraumatic, Normacephalic Eye(s): bilateral: Normal Inspection, PERRL Neck: Normal ROM, Supple Chest: Symmetrical, No Deformity Cardiovascular: Rhythm Regular, No Murmur Respiratory: No Accessory Muscle Use, No Rales, No Rhonchi, No Wheezing Gastrointestinal/Abdominal: Soft, No Tenderness Extremity: Capillary Refill (<2 seconds) Neurological/Psych: Oriented x3, Normal Speech, Normal Cognition Assessment & Plan - Assessment and Plan (Free Text) Assessment: 73-year-old female with a history of CAD, hypertension, status post stent, hypercholesterolemia, and history of suspected COPD admitted to the hospital with acute and elevated blood pressure. no significant symptoms. Labs reviewed Continue to monitor the blood pressure. Nephrology evaluation. DVT and GI prophylaxis. We will follow the patient Stress test Sunday Objective - Vital Signs/Intake and Output Vital Signs (last 24 hours): Temp Pulse Resp BP Pulse Ox 98 F 65 18 162/79 H 99 06/16/18 07:00 06/16/18 07:09 06/16/18 07:00 06/16/18 07:00 06/16/18 07:47 Intake and Output: 06/16/18 06/16/18 06:59 18:59 Intake Total 10 Balance 10 - Medications Medications: Current Medications Acetaminophen/Codeine Phosphate (Tylenol/Codeine 300 Mg/30 Mg) 1 ea PO Q6 PRN PRN Reason: Pain, moderate (4-7) Amlodipine Besylate (Norvasc) 10 mg PO DAILY [facility] Last Admin: 06/16/18 09:18 Dose: 10 mg Aspirin (Ecotrin) 81 mg PO DAILY [facility] Last Admin: 06/16/18 09:18 Dose: 81 mg Chlorthalidone (Hygroton) 25 mg PO DAILY [facility] Last Admin: 06/16/18 09:33 Dose: 25 mg Clopidogrel Bisulfate (Plavix) 75 mg PO DAILY [facility] Last Admin: 06/16/18 09:18 Dose: 75 mg Enoxaparin Sodium (Lovenox) 40 mg SC DAILY [facility] Last Admin: 06/16/18 09:19 Dose: 40 mg Ergocalciferol (Drisdol 50,000 Intl Units Cap) 1 cap PO QWK [facility] Famotidine (Pepcid) 20 mg PO HS [facility] Last Admin: 06/15/18 21:37 Dose: 20 mg Fluticasone/Vilanterol (Breo Ellipta 100-25 Mcg Inh) 1 puff INH RQ24 [facility] Hydralazine HCl (Apresoline) 25 mg PO Q4 PRN PRN Reason: Other Last Admin: 06/15/18 07:41 Dose: 25 mg Hydralazine HCl (Apresoline) 50 mg PO BID [facility] Last Admin: 06/16/18 09:18 Dose: 50 mg Loratadine (Claritin) 10 mg PO DAILY [facility] Stop: 06/21/18 10:01 Last Admin: 06/16/18 09:19 Dose: 10 mg Losartan Potassium (Cozaar) 100 mg PO DAILY [facility] Last Admin: 06/16/18 09:18 Dose: 100 mg Metoprolol Succinate (Toprol Xl) 100 mg PO DAILY [facility] Last Admin: 06/16/18 09:18 Dose: 100 mg Rosuvastatin Calcium (Crestor) 20 mg PO HS [facility] Last Admin: 06/15/18 21:37 Dose: 20 mg Tiotropium [place] (Spiriva Inhalation Handihaler Device) 1 inhaler INH RQD [facility] Tiotropium [place] (Spiriva) 18 mcg INH RQ24 [facility] Last Admin: 06/16/18 08:27 Dose: Not Given - Labs Labs: 06/13/18 19:43 06/13/18 19:43
--- NOTE | 2018-06-16 11:56 | CP.PCM.PN ---
Subjective - Date & Time of Evaluation Date of Evaluation: 06/16/18 Time of Evaluation: 11:55 - Subjective Subjective: Nephrology Consultation Note: Assessment: Stable uncontrolled severe HTN with urgency CAD s/p stent and hyperlipidemia Vit d deficiency osteoarthritis s/p Rt TKR LVH COPD Plan No acute need for renal replacement therapy at this time. Hypertension control with meds as ordered. Maintain hemodynamics stable. Avoid hypotension. Patient on losartan 100 mg/d. also on toprol XL. resume CCB as norvasc 10 mg/d. add thiazide diuretic as chlorthalidone 25 mg/d. in addition will give prn hydralazine. hydralazine 50 mg bid Monitor Input/Output, daily weights and renal function with basic metabolic panel supplement lytes as needed claritin for few days Check UA, urine spot protein/creatinine, albumin/creatinine ratio, urine Na Secondary HTN work up with plasma renin/aldosterone, plasma metanephrine and renal artery Doppler to r/o renal artery stenosis, TSH, Vit D level Dose meds/antibiotics (if needed) for GFR>60 Glycemic control. Further work up/management as per primary team Thanks for allowing me to participate in care of your patient. Will follow patient with you. Please call if any Qs. had d/w team Dr Juan J De Paz Office: [phone] Chief Complaint; high BP Reason for consult: HTN urgency HPI: Pt is a 73 F with hx of hypertension (40 years) CAD s/p stent, COPD, osteoarthritis s/p Rt TKR and hyperlipidemia presented with complaints of BP in 220 range hence admitted with HTN urgency. Denies OTC/herbal meds or NSAIDs No recent iodinated contrast exposure. pt says BP has been high for last few months. has been better controlled prior to that denies smoking/etoh/drugs/nsaids/decongestants as sudafed/otc meds/licorice has allergic nasal congestion. she feels in usual health otherwis ROS: has nasal congestion and sneezing but better with claritin Cardiovascular: No chest pain. Pulmonary: No shortness of breath Gastrointestinal: denies abdominal pain No nausea. No vomiting. Genitourinary: No pain while urinating. Denies blood in urine. All other negative except as mentioned in HPI. Physical Examination: General Appearance: Comfortable, in no acute respiratory distress, co-operative . Vitals reviewed and noted as below Head; Atraumatic, normocephalic ENT: no ulcers no thrush. Tongue is midline. Oropharynx: no rash or ulcers. EYES: Pupils are equal, round and reactive to light accommodation. Eye muscles and extraocular movement intact. Sclera is anicteric. Neck; supple no lymphadenopathy, no thyromegaly or bruit Lungs: Normal respiratory rate/effort. Breath sounds bilateral equal and clear Heart: Normal rate. s1s2 normal. No rub or gallop. Extremities: no edema. No varicose veins Neurological: Patient is alert, awake and oriented to person, place and time. No focal deficit. Strength bilateral appropriate and equal Skin: Warm and dry. Normal turgor. No rash. Palpitation: Normal elasticity for age Abdomen: Abdomen is soft. Bowel sounds +. There is no abdominal tenderness, no guarding/rigidity no organomegaly Psych: normal insight and normal affect/mood MSK: no joint tenderness or swelling. Digits and nails normal, no deformity : kidney or bladder not palpable Labs/imaging reviewed. Past medical history, past surgical history, family history, social history, allergy reviewed and noted as below Family hx: no hx of CKD. Rest non-contributory echo: mild concentric LVH renal imaging 2018 WNL including adrenals Objective - Vital Signs/Intake and Output Vital Signs (last 24 hours): Temp Pulse Resp BP Pulse Ox 98 F 65 18 162/79 H 99 06/16/18 07:00 06/16/18 07:09 06/16/18 07:00 06/16/18 07:00 06/16/18 07:47 Intake and Output: 06/16/18 06/16/18 06:59 18:59 Intake Total 10 Balance 10 - Medications Medications: Current Medications Acetaminophen/Codeine Phosphate (Tylenol/Codeine 300 Mg/30 Mg) 1 ea PO Q6 PRN PRN Reason: Pain, moderate (4-7) Amlodipine Besylate (Norvasc) 10 mg PO DAILY [facility] Last Admin: 06/16/18 09:18 Dose: 10 mg Aspirin (Ecotrin) 81 mg PO DAILY [facility] Last Admin: 06/16/18 09:18 Dose: 81 mg Chlorthalidone (Hygroton) 25 mg PO DAILY [facility] Last Admin: 06/16/18 09:33 Dose: 25 mg Clopidogrel Bisulfate (Plavix) 75 mg PO DAILY [facility] Last Admin: 06/16/18 09:18 Dose: 75 mg Enoxaparin Sodium (Lovenox) 40 mg SC DAILY [facility] Last Admin: 06/16/18 09:19 Dose: 40 mg Ergocalciferol (Drisdol 50,000 Intl Units Cap) 1 cap PO QWK [facility] Famotidine (Pepcid) 20 mg PO HS [facility] Last Admin: 06/15/18 21:37 Dose: 20 mg Fluticasone/Vilanterol (Breo Ellipta 100-25 Mcg Inh) 1 puff INH RQ24 [facility] Hydralazine HCl (Apresoline) 50 mg PO BID [facility] Last Admin: 06/16/18 09:18 Dose: 50 mg Hydralazine HCl (Apresoline) 25 mg PO Q4 PRN PRN Reason: Other Loratadine (Claritin) 10 mg PO DAILY [facility] Stop: 06/21/18 10:01 Last Admin: 06/16/18 09:19 Dose: 10 mg Losartan Potassium (Cozaar) 100 mg PO DAILY [facility] Last Admin: 06/16/18 09:18 Dose: 100 mg Metoprolol Succinate (Toprol Xl) 100 mg PO DAILY [facility] Last Admin: 06/16/18 09:18 Dose: 100 mg Rosuvastatin Calcium (Crestor) 20 mg PO HS [facility] Last Admin: 06/15/18 21:37 Dose: 20 mg Tiotropium [place] (Spiriva Inhalation Handihaler Device) 1 inhaler INH RQD [facility] Tiotropium [place] (Spiriva) 18 mcg INH RQ24 [facility] Last Admin: 06/16/18 08:27 Dose: Not Given - Labs Labs: 06/13/18 19:43 06/13/18 19:43
--- NOTE | 2018-06-16 18:17 | CP.PCM.PN ---
Subjective - Date & Time of Evaluation Date of Evaluation: 06/16/18 Time of Evaluation: 18:17 - Subjective Subjective: Patient now feeling better. But the right knee pain still noted. She is not taking any pain medications. She has a BM. Seen by product line manager. Possible stress test tomorrow. On examination: Vital signs stable. Chest good air entry regular heart sounds noted Nontender abdomen no pedal edema Currently patient is taking 5 different types of medication for the controlling the blood pressure. Underlying secondary hypertension also possible. We will continue the current treatment. after discussion with the renal and cardiology and will plan for possible discharge tomorrow Objective - Vital Signs/Intake and Output Vital Signs (last 24 hours): Temp Pulse Resp BP Pulse Ox 98.4 F 70 18 157/82 H 97 06/16/18 16:10 06/16/18 16:10 06/16/18 16:10 06/16/18 16:10 06/16/18 16:10 Intake and Output: 06/16/18 06/16/18 06:59 18:59 Intake Total 10 350 Balance 10 350 - Medications Medications: Current Medications Acetaminophen/Codeine Phosphate (Tylenol/Codeine 300 Mg/30 Mg) 1 ea PO Q6 PRN PRN Reason: Pain, moderate (4-7) Amlodipine Besylate (Norvasc) 10 mg PO DAILY [facility] Last Admin: 06/16/18 09:18 Dose: 10 mg Aspirin (Ecotrin) 81 mg PO DAILY [facility] Last Admin: 06/16/18 09:18 Dose: 81 mg Chlorthalidone (Hygroton) 25 mg PO DAILY [facility] Last Admin: 06/16/18 09:33 Dose: 25 mg Clopidogrel Bisulfate (Plavix) 75 mg PO DAILY [facility] Last Admin: 06/16/18 09:18 Dose: 75 mg Enoxaparin Sodium (Lovenox) 40 mg SC DAILY [facility] Last Admin: 06/16/18 09:19 Dose: 40 mg Ergocalciferol (Drisdol 50,000 Intl Units Cap) 1 cap PO QWK [facility] Famotidine (Pepcid) 20 mg PO HS [facility] Last Admin: 06/15/18 21:37 Dose: 20 mg Fluticasone/Vilanterol (Breo Ellipta 100-25 Mcg Inh) 1 puff INH RQ24 [facility] Hydralazine HCl (Apresoline) 50 mg PO BID [facility] Last Admin: 06/16/18 17:07 Dose: 50 mg Hydralazine HCl (Apresoline) 25 mg PO Q4 PRN PRN Reason: Other Loratadine (Claritin) 10 mg PO DAILY [facility] Stop: 06/21/18 10:01 Last Admin: 06/16/18 09:19 Dose: 10 mg Losartan Potassium (Cozaar) 100 mg PO DAILY [facility] Last Admin: 06/16/18 09:18 Dose: 100 mg Metoprolol Succinate (Toprol Xl) 100 mg PO DAILY [facility] Last Admin: 06/16/18 09:18 Dose: 100 mg Rosuvastatin Calcium (Crestor) 20 mg PO HS [facility] Last Admin: 06/15/18 21:37 Dose: 20 mg Tiotropium [place] (Spiriva Inhalation Handihaler Device) 1 inhaler INH RQD [facility] Tiotropium [place] (Spiriva) 18 mcg INH RQ24 [facility] Last Admin: 06/16/18 08:27 Dose: Not Given - Labs Labs: 06/13/18 19:43 06/13/18 19:43
--- NOTE | 2018-06-16 18:17 | CP.PCM.PN ---
Subjective - Date & Time of Evaluation Date of Evaluation: 06/15/18 Time of Evaluation: 18:17 - Subjective Subjective: Patient slept well last night. The blood pressure seems to be improving at this time. Patient is currently on multiple oral antihypertensives. No chest pain no shortness of breath Vital signs are stable Chest good air entry, regular Hs noted nontender abdomen Assessment and recommendation: Patient is a 73-year-old female with a history of hypertension. Patient has multiple osteoarthritic changes. Knee joint pain. Admitted with uncontrolled hypertension with systemic symptoms. Currently doing well we will continue to monitor. Objective - Vital Signs/Intake and Output Vital Signs (last 24 hours): Temp Pulse Resp BP Pulse Ox 98.4 F 70 18 157/82 H 97 06/16/18 16:10 06/16/18 16:10 06/16/18 16:10 06/16/18 16:10 06/16/18 16:10 Intake and Output: 06/16/18 06/16/18 06:59 18:59 Intake Total 10 350 Balance 10 350 - Medications Medications: Current Medications Acetaminophen/Codeine Phosphate (Tylenol/Codeine 300 Mg/30 Mg) 1 ea PO Q6 PRN PRN Reason: Pain, moderate (4-7) Amlodipine Besylate (Norvasc) 10 mg PO DAILY [facility] Last Admin: 06/16/18 09:18 Dose: 10 mg Aspirin (Ecotrin) 81 mg PO DAILY [facility] Last Admin: 06/16/18 09:18 Dose: 81 mg Chlorthalidone (Hygroton) 25 mg PO DAILY [facility] Last Admin: 06/16/18 09:33 Dose: 25 mg Clopidogrel Bisulfate (Plavix) 75 mg PO DAILY [facility] Last Admin: 06/16/18 09:18 Dose: 75 mg Enoxaparin Sodium (Lovenox) 40 mg SC DAILY [facility] Last Admin: 06/16/18 09:19 Dose: 40 mg Ergocalciferol (Drisdol 50,000 Intl Units Cap) 1 cap PO QWK [facility] Famotidine (Pepcid) 20 mg PO HS [facility] Last Admin: 06/15/18 21:37 Dose: 20 mg Fluticasone/Vilanterol (Breo Ellipta 100-25 Mcg Inh) 1 puff INH RQ24 [facility] Hydralazine HCl (Apresoline) 50 mg PO BID [facility] Last Admin: 06/16/18 17:07 Dose: 50 mg Hydralazine HCl (Apresoline) 25 mg PO Q4 PRN PRN Reason: Other Loratadine (Claritin) 10 mg PO DAILY [facility] Stop: 06/21/18 10:01 Last Admin: 06/16/18 09:19 Dose: 10 mg Losartan Potassium (Cozaar) 100 mg PO DAILY [facility] Last Admin: 06/16/18 09:18 Dose: 100 mg Metoprolol Succinate (Toprol Xl) 100 mg PO DAILY [facility] Last Admin: 06/16/18 09:18 Dose: 100 mg Rosuvastatin Calcium (Crestor) 20 mg PO HS [facility] Last Admin: 06/15/18 21:37 Dose: 20 mg Tiotropium [place] (Spiriva Inhalation Handihaler Device) 1 inhaler INH RQD [facility] Tiotropium [place] (Spiriva) 18 mcg INH RQ24 [facility] Last Admin: 06/16/18 08:27 Dose: Not Given - Labs Labs: 06/13/18 19:43 06/13/18 19:43
--- NOTE | 2018-06-16 18:17 | CP.PCM.PN ---
Subjective - Date & Time of Evaluation Date of Evaluation: 06/14/18 Time of Evaluation: 18:17 - Subjective Subjective: Patient is still continues to have very elevated blood pressure. Renal evaluation is currently pending. No chest pain no shortness of breath. Right knee pain noted. Seen by cardiology also. Meanwhile we will continue the current treatment. Close monitoring the blood pressure. Evaluation with the sports app[employer] internship and will follow the patient Objective - Vital Signs/Intake and Output Vital Signs (last 24 hours): Temp Pulse Resp BP Pulse Ox 98.4 F 70 18 157/82 H 97 06/16/18 16:10 06/16/18 16:10 06/16/18 16:10 06/16/18 16:10 06/16/18 16:10 Intake and Output: 06/16/18 06/16/18 06:59 18:59 Intake Total 10 350 Balance 10 350 - Medications Medications: Current Medications Acetaminophen/Codeine Phosphate (Tylenol/Codeine 300 Mg/30 Mg) 1 ea PO Q6 PRN PRN Reason: Pain, moderate (4-7) Amlodipine Besylate (Norvasc) 10 mg PO DAILY [facility] Last Admin: 06/16/18 09:18 Dose: 10 mg Aspirin (Ecotrin) 81 mg PO DAILY [facility] Last Admin: 06/16/18 09:18 Dose: 81 mg Chlorthalidone (Hygroton) 25 mg PO DAILY [facility] Last Admin: 06/16/18 09:33 Dose: 25 mg Clopidogrel Bisulfate (Plavix) 75 mg PO DAILY [facility] Last Admin: 06/16/18 09:18 Dose: 75 mg Enoxaparin Sodium (Lovenox) 40 mg SC DAILY [facility] Last Admin: 06/16/18 09:19 Dose: 40 mg Ergocalciferol (Drisdol 50,000 Intl Units Cap) 1 cap PO QWK [facility] Famotidine (Pepcid) 20 mg PO HS [facility] Last Admin: 06/15/18 21:37 Dose: 20 mg Fluticasone/Vilanterol (Breo Ellipta 100-25 Mcg Inh) 1 puff INH RQ24 [facility] Hydralazine HCl (Apresoline) 50 mg PO BID [facility] Last Admin: 06/16/18 17:07 Dose: 50 mg Hydralazine HCl (Apresoline) 25 mg PO Q4 PRN PRN Reason: Other Loratadine (Claritin) 10 mg PO DAILY [facility] Stop: 06/21/18 10:01 Last Admin: 06/16/18 09:19 Dose: 10 mg Losartan Potassium (Cozaar) 100 mg PO DAILY [facility] Last Admin: 06/16/18 09:18 Dose: 100 mg Metoprolol Succinate (Toprol Xl) 100 mg PO DAILY [facility] Last Admin: 06/16/18 09:18 Dose: 100 mg Rosuvastatin Calcium (Crestor) 20 mg PO [facility] Last Admin: 06/15/18 21:37 Dose: 20 mg Tiotropium [place] (Spiriva Inhalation Handihaler Device) 1 inhaler INH RQD [facility] Tiotropium [place] (Spiriva) 18 mcg INH RQ24 [facility] Last Admin: 06/16/18 08:27 Dose: Not Given - Labs Labs: 06/13/18 19:43 06/13/18 19:43
--- NOTE | 2018-06-16 19:34 | CARD ---
APPROVED REPORT Date of service: 06/13/2018 EKG Measurement Heart [id number] <Conclusion> Normal sinus rhythm Possible Left atrial enlargement T wave abnormality, consider inferolateral ischemia Abnormal ECG
--- NOTE | 2018-06-16 22:05 | CARD ---
APPROVED REPORT Date of service: 06/15/2018 EXAM: Two-dimensional and M-mode echocardiogram with Doppler and color Doppler. Other Information Quality : AverageRhythm : NSR INDICATION CAD Chest Pain COPD RISK FACTORS Hypertension Hyperlipidemia 2D DIMENSIONS IVSd1.2 (0.7-1.1cm)Aortic Root (2D)2.9 (2.0-3.7cm) LVDd3.8 (3.9-5.9cm)PWd1.2 (0.7-1.1cm) LA Hkudhv13 (18-58mL)LVDs2.7 (2.5-4.0cm) FS (%) 27.9 %LVEF (%)54.9 (>50%) M-Mode DIMENSIONS Left Atrium (MM)3.17 (2.5-4.0cm)Aortic Root3.21 (2.2-3.7cm) Aortic Cusp Exc.1.70 (1.5-2.0cm) Aortic Valve AoV Peak Zmdslkrb009.9cm/Sammy Peak GR.6mmHg Mitral Valve MV E Ikbhmprv06.9cm/sMV A Xenuyxpx77.3cm/sE/A ratio0.5 TDI Lateral E' Peak V6.74cm/sMedial E' Peak V5.64cm/sE/Lateral E'7.8 E/Medial E'9.4 Tricuspid Valve TR Peak [id number]/sTR Peak Gr.[id number] <Conclusion> Left ventricle: thickness: mild concentric thickening; size: normal; overall ejection fraction: 55%: diastolic filling pressures: normal Mitral valve: annulus: normal: leaflets: normal: excursion: normal; no significant trans-mitral gradient: no significant incompetence: left atrium: normal Aortic valve: leaflets: normal: excursion: normal; no significant trans-aortic gradient: No significant incompetence: aortic root: normal Right sided Structures: Pulmonary valve: normal; no significant incompetence; Tricuspid valve: normal; no significant incompetence: Intra-cardiac hemodynamics: pulmonary systolic pressures: normal; central venous pressures: normal No pericardial effusion
--- NOTE | 2018-06-16 23:46 | CP.PCM.PN ---
Subjective - Date & Time of Evaluation Date of Evaluation: 06/16/18 Time of Evaluation: 13:05 - Subjective Subjective: Patient seen and evaluated Denies chest pain and dyspnea BP stable Patient for stress test and ECHO in am Review Of Systems Eyes: Positive for: Vision Change (blurry vision with blinking from eye irritation) Cardiovascular: Negative for: Chest Pain, Palpitations Respiratory: Negative for: Shortness of Breath Musculoskeletal: Positive for: Other (right knee pain ) Neurological: Negative for: Headache, Dizziness Physical Exam - Physical Exam Appears: Non-toxic, Other (hypertensive) Skin: Normal Color, Warm, Dry Head: Atraumatic, Normacephalic Eye(s): bilateral: Normal Inspection, PERRL Neck: Normal ROM, Supple Chest: Symmetrical, No Deformity Cardiovascular: Rhythm Regular, No Murmur Respiratory: No Accessory Muscle Use, No Rales, No Rhonchi, No Wheezing Gastrointestinal/Abdominal: Soft, No Tenderness Extremity: Capillary Refill (<2 seconds) Neurological/Psych: Oriented x3, Normal Speech, Normal Cognition Assessment & Plan - Assessment and Plan (Free Text) Assessment: 73-year-old female with a history of CAD, hypertension, status post stent, hypercholesterolemia, and history of suspected COPD admitted to the hospital with acute and elevated blood pressure. no significant symptoms. Labs reviewed Continue to monitor the blood pressure. Nephrology evaluation. DVT and GI prophylaxis. We will follow the patient Stress test Tomorrow Objective - Vital Signs/Intake and Output Vital Signs (last 24 hours): Temp Pulse Resp BP Pulse Ox 98.4 F 70 18 157/82 H 97 06/16/18 16:10 06/16/18 16:10 06/16/18 16:10 06/16/18 16:10 06/16/18 16:10 Intake and Output: 06/16/18 06/17/18 18:59 06:59 Intake Total 350 300 Balance 350 300 - Medications Medications: Current Medications Acetaminophen/Codeine Phosphate (Tylenol/Codeine 300 Mg/30 Mg) 1 ea PO Q6 PRN PRN Reason: Pain, moderate (4-7) Amlodipine Besylate (Norvasc) 10 mg PO DAILY [facility] Last Admin: 06/16/18 09:18 Dose: 10 mg Aspirin (Ecotrin) 81 mg PO DAILY [facility] Last Admin: 06/16/18 09:18 Dose: 81 mg Chlorthalidone (Hygroton) 25 mg PO DAILY [facility] Last Admin: 06/16/18 09:33 Dose: 25 mg Clopidogrel Bisulfate (Plavix) 75 mg PO DAILY [facility] Last Admin: 06/16/18 09:18 Dose: 75 mg Enoxaparin Sodium (Lovenox) 40 mg SC DAILY [facility] Last Admin: 06/16/18 09:19 Dose: 40 mg Ergocalciferol (Drisdol 50,000 Intl Units Cap) 1 cap PO QWK [facility] Famotidine (Pepcid) 20 mg PO HS [facility] Last Admin: 06/16/18 21:51 Dose: 20 mg Fluticasone/Vilanterol (Breo Ellipta 100-25 Mcg Inh) 1 puff INH RQ24 [facility] Hydralazine HCl (Apresoline) 50 mg PO BID [facility] Last Admin: 06/16/18 17:07 Dose: 50 mg Hydralazine HCl (Apresoline) 25 mg PO Q4 PRN PRN Reason: Other Loratadine (Claritin) 10 mg PO DAILY [facility] Stop: 06/21/18 10:01 Last Admin: 06/16/18 09:19 Dose: 10 mg Losartan Potassium (Cozaar) 100 mg PO DAILY [facility] Last Admin: 06/16/18 09:18 Dose: 100 mg Metoprolol Succinate (Toprol Xl) 100 mg PO DAILY [facility] Last Admin: 06/16/18 09:18 Dose: 100 mg Rosuvastatin Calcium (Crestor) 20 mg PO HS [facility] Last Admin: 06/16/18 21:51 Dose: 20 mg Tiotropium [place] (Spiriva Inhalation Handihaler Device) 1 inhaler INH RQD [facility] Tiotropium [place] (Spiriva) 18 mcg INH RQ24 [facility] Last Admin: 06/16/18 08:27 Dose: Not Given - Labs Labs: 06/13/18 19:43 06/13/18 19:43
[2018-06-17 06:11] LABS: BASO % 0.9 % (0.0-2.0); EOS # 0.1 K/uL (0.0-0.7); EOS % 2.6 % (0.0-4.0); HEMOGLOBIN 13.7 g/dL (11.0-16.0); LYMPH # 1.7 K/uL (1.0-4.3); LYMPH % 42.6 % (20.0-40.0); MEAN CELL VOLUME 85.6 fL (81.0-99.0); MEAN CORPUSCULAR HEMOGLOBIN 27.5 pg (27.0-31.0); MEAN CORPUSCULAR HGB CONC 32.1 g/dL (33.0-37.0); MEAN PLATELET VOLUME 9.9 fL (7.2-11.7); MONO # 0.5 K/uL (0.0-0.8); MONO % 12.2 % (0.0-10.0); NEUT # 1.7 K/uL (1.8-7.0); NEUT % 41.7 % (50.0-75.0); NRBC % 0.1 % (0.0-2.0); RBC 4.99 Mil/uL (3.80-5.20); RED CELL DISTRIBUTION WIDTH 15.2 % (11.5-14.5)
[2018-06-17 06:24] LABS: ALB/GLOB RATIO 1.3 (1.0-2.1); ALBUMIN 3.7 g/dL (3.5-5.0); CALCIUM 9.1 mg/dl (8.6-10.4)
[2018-06-17] MEDS ORDERED: Caffeine Citrated **INJ** 20 MG/ML IV ONE (07:58)
[2018-06-17] MEDS: Tiotropium 18 mcg Cap For Inhalation INH SCH (09:33)
[2018-06-17] MEDS: Metoprolol Succinate 100 mg XL Tab PO SCH (14:39)
[2018-06-17] MEDS: Enoxaparin 40 mg Syringe SC SCH (14:40)
--- NOTE | 2018-06-17 16:08 | CP.PCM.PN ---
Subjective - Date & Time of Evaluation Date of Evaluation: 06/17/18 Time of Evaluation: 16:07 - Subjective Subjective: Nephrology Consultation Note: Assessment: Stable uncontrolled severe HTN with urgency CAD s/p stent and hyperlipidemia Vit d deficiency osteoarthritis s/p Rt TKR LVH COPD Plan No acute need for renal replacement therapy at this time. Hypertension control with meds as ordered. Maintain hemodynamics stable. Avoid hypotension. Patient on losartan 100 mg/d. also on toprol XL. resume CCB as norvasc 10 mg/d. add thiazide diuretic as chlorthalidone 25 mg/d. in addition will give prn hydralazine. hydralazine 100 mg bid Monitor Input/Output, daily weights and renal function with basic metabolic panel supplement lytes as needed claritin for few days Check UA, urine spot protein/creatinine, albumin/creatinine ratio, urine Na Secondary HTN work up with plasma renin/aldosterone, plasma metanephrine and renal artery Doppler to r/o renal artery stenosis, TSH, Vit D level Dose meds/antibiotics (if needed) for GFR>60 Glycemic control. Further work up/management as per primary team pt stable for d/c from renal perspective when planned with 1 week outpt follow up Thanks for allowing me to participate in care of your patient. Will follow patient with you. Please call if any Qs. had d/w team Dr Juan J De Paz Office: [phone] Chief Complaint; high BP Reason for consult: HTN urgency HPI: Pt is a 73 F with hx of hypertension (40 years) CAD s/p stent, COPD, osteoarthritis s/p Rt TKR and hyperlipidemia presented with complaints of BP in 220 range hence admitted with HTN urgency. Denies OTC/herbal meds or NSAIDs No recent iodinated contrast exposure. pt says BP has been high for last few months. has been better controlled prior to that denies smoking/etoh/drugs/nsaids/decongestants as sudafed/otc meds/licorice has allergic nasal congestion. she feels in usual health otherwis ROS: has nasal congestion and sneezing but better with claritin Cardiovascular: No chest pain. Pulmonary: No shortness of breath Gastrointestinal: denies abdominal pain No nausea. No vomiting. Genitourinary: No pain while urinating. Denies blood in urine. All other negative except as mentioned in HPI. Physical Examination: General Appearance: Comfortable, in no acute respiratory distress, co-operative . Vitals reviewed and noted as below Head; Atraumatic, normocephalic ENT: no ulcers no thrush. Tongue is midline. Oropharynx: no rash or ulcers. EYES: Pupils are equal, round and reactive to light accommodation. Eye muscles and extraocular movement intact. Sclera is anicteric. Neck; supple no lymphadenopathy, no thyromegaly or bruit Lungs: Normal respiratory rate/effort. Breath sounds bilateral equal and clear Heart: Normal rate. s1s2 normal. No rub or gallop. Extremities: no edema. No varicose veins Neurological: Patient is alert, awake and oriented to person, place and time. No focal deficit. Strength bilateral appropriate and equal Skin: Warm and dry. Normal turgor. No rash. Palpitation: Normal elasticity for age Abdomen: Abdomen is soft. Bowel sounds +. There is no abdominal tenderness, no guarding/rigidity no organomegaly Psych: normal insight and normal affect/mood MSK: no joint tenderness or swelling. Digits and nails normal, no deformity : kidney or bladder not palpable Labs/imaging reviewed. Past medical history, past surgical history, family history, social history, allergy reviewed and noted as below Family hx: no hx of CKD. Rest non-contributory echo: mild concentric LVH renal imaging 2018 WNL including adrenals Objective - Vital Signs/Intake and Output Vital Signs (last 24 hours): Temp Pulse Resp BP Pulse Ox 98.1 F 68 18 168/84 H 98 06/17/18 07:00 06/17/18 07:00 06/17/18 07:00 06/17/18 07:00 06/17/18 07:00 Intake and Output: 06/17/18 06/17/18 06:59 18:59 Intake Total 300 Balance 300 - Medications Medications: Current Medications Acetaminophen/Codeine Phosphate (Tylenol/Codeine 300 Mg/30 Mg) 1 ea PO Q6 PRN PRN Reason: Pain, moderate (4-7) Amlodipine Besylate (Norvasc) 10 mg PO DAILY [facility] Last Admin: 06/17/18 14:39 Dose: 10 mg Aspirin (Ecotrin) 81 mg PO DAILY [facility] Last Admin: 06/17/18 14:38 Dose: 81 mg Chlorthalidone (Hygroton) 25 mg PO DAILY [facility] Last Admin: 06/17/18 14:40 Dose: Not Given Clopidogrel Bisulfate (Plavix) 75 mg PO DAILY [facility] Last Admin: 06/17/18 14:39 Dose: 75 mg Enoxaparin Sodium (Lovenox) 40 mg SC DAILY [facility] Last Admin: 06/17/18 14:40 Dose: 40 mg Ergocalciferol (Drisdol 50,000 Intl Units Cap) 1 cap PO QWK [facility] Famotidine (Pepcid) 20 mg PO HS [facility] Last Admin: 06/16/18 21:51 Dose: 20 mg Fluticasone/Vilanterol (Breo Ellipta 100-25 Mcg Inh) 1 puff INH RQ24 [facility] Hydralazine HCl (Apresoline) 25 mg PO Q4 PRN PRN Reason: Other Hydralazine HCl (Apresoline) 100 mg PO BID [facility] Loratadine (Claritin) 10 mg PO DAILY [facility] Stop: 06/21/18 10:01 Last Admin: 06/17/18 14:38 Dose: 10 mg Losartan Potassium (Cozaar) 100 mg PO DAILY [facility] Last Admin: 06/17/18 14:39 Dose: 100 mg Metoprolol Succinate (Toprol Xl) 100 mg PO DAILY [facility] Last Admin: 06/17/18 14:39 Dose: 100 mg Rosuvastatin Calcium (Crestor) 20 mg PO HS [facility] Last Admin: 06/16/18 21:51 Dose: 20 mg Tiotropium [place] (Spiriva Inhalation Handihaler Device) 1 inhaler INH RQD [facility] Tiotropium [place] (Spiriva) 18 mcg INH RQ24 [facility] Last Admin: 06/17/18 09:33 Dose: Not Given - Labs Labs: 06/17/18 06:02 06/17/18 06:02
[2018-06-17] MEDS ORDERED: Alum-Mag Hydrox-Simethicone Susp (30 mL) PO ONE (18:45)
--- NOTE | 2018-06-17 18:48 | CP.PCM.PN ---
Subjective - Date & Time of Evaluation Date of Evaluation: 06/17/18 Time of Evaluation: 18:46 - Subjective Subjective: SIN GUILLEN NOTE Nursing paged @ 6:40pm for epigastric pain. Pt found in 651 B. Pt states she just started eating sandwich and now feels "burning sensation below her chest bone" and "bad taste in her mouth." Admits history of GERD. Denies radiation, diaphoresis, vomiting. PE: Gen: NAD CV: s1,S2, no murmur/rub/gallop Lungs: CTA b/l PLan: Mylanta trial Pt with anti-reflux meds QHS Griselda Fuentes PGY3 Objective - Vital Signs/Intake and Output Vital Signs (last 24 hours): Temp Pulse Resp BP Pulse Ox 97.4 F L 82 20 138/70 98 06/17/18 18:36 06/17/18 18:36 06/17/18 18:36 06/17/18 18:36 06/17/18 18:36 Intake and Output: 06/17/18 06/17/18 06:59 18:59 Intake Total 300 Balance 300 - Medications Medications: Current Medications Acetaminophen/Codeine Phosphate (Tylenol/Codeine 300 Mg/30 Mg) 1 ea PO Q6 PRN PRN Reason: Pain, moderate (4-7) Amlodipine Besylate (Norvasc) 10 mg PO DAILY [facility] Last Admin: 06/17/18 14:39 Dose: 10 mg Aspirin (Ecotrin) 81 mg PO DAILY [facility] Last Admin: 06/17/18 14:38 Dose: 81 mg Chlorthalidone (Hygroton) 25 mg PO DAILY [facility] Last Admin: 06/17/18 14:40 Dose: Not Given Clopidogrel Bisulfate (Plavix) 75 mg PO DAILY [facility] Last Admin: 06/17/18 14:39 Dose: 75 mg Enoxaparin Sodium (Lovenox) 40 mg SC DAILY [facility] Last Admin: 06/17/18 14:40 Dose: 40 mg Ergocalciferol (Drisdol 50,000 Intl Units Cap) 1 cap PO QWK [facility] Famotidine (Pepcid) 20 mg PO HS [facility] Last Admin: 06/16/18 21:51 Dose: 20 mg Fluticasone/Vilanterol (Breo Ellipta 100-25 Mcg Inh) 1 puff INH RQ24 [facility] Hydralazine HCl (Apresoline) 25 mg PO Q4 PRN PRN Reason: Other Hydralazine HCl (Apresoline) 100 mg PO BID [facility] Last Admin: 06/17/18 17:45 Dose: 100 mg Loratadine (Claritin) 10 mg PO DAILY [facility] Stop: 06/21/18 10:01 Last Admin: 06/17/18 14:38 Dose: 10 mg Losartan Potassium (Cozaar) 100 mg PO DAILY [facility] Last Admin: 06/17/18 14:39 Dose: 100 mg Metoprolol Succinate (Toprol Xl) 100 mg PO DAILY [facility] Last Admin: 06/17/18 14:39 Dose: 100 mg Rosuvastatin Calcium (Crestor) 20 mg PO HS [facility] Last Admin: 06/16/18 21:51 Dose: 20 mg Tiotropium [place] (Spiriva Inhalation Handihaler Device) 1 inhaler INH RQD [facility] Tiotropium [place] (Spiriva) 18 mcg INH RQ24 [facility] Last Admin: 06/17/18 09:33 Dose: Not Given - Labs Labs: 06/17/18 06:02 06/17/18 06:02
--- NOTE | 2018-06-17 22:57 | CP.PCM.PN ---
Subjective - Date & Time of Evaluation Date of Evaluation: 06/17/18 Time of Evaluation: 19:30 - Subjective Subjective: Patient seen and evaluated Denies chest pain and dyspnea BP stable Patient s/p stress test and ECHO Review Of Systems Eyes: Positive for: Vision Change (blurry vision with blinking from eye i rritation) Cardiovascular: Negative for: Chest Pain, Palpitations Respiratory: Negative for: Shortness of Breath Musculoskeletal: Positive for: Other (right knee pain ) Neurological: Negative for: Headache, Dizziness Physical Exam - Physical Exam Appears: Non-toxic, Other (hypertensive) Skin: Normal Color, Warm, Dry Head: Atraumatic, Normacephalic Eye(s): bilateral: Normal Inspection, PERRL Neck: Normal ROM, Supple Chest: Symmetrical, No Deformity Cardiovascular: Rhythm Regular, No Murmur Respiratory: No Accessory Muscle Use, No Rales, No Rhonchi, No Wheezing Gastrointestinal/Abdominal: Soft, No Tenderness Extremity: Capillary Refill (<2 seconds) Neurological/Psych: Oriented x3, Normal Speech, Normal Cognition Assessment & Plan - Assessment and Plan (Free Text) Assessment: 73-year-old female with a history of CAD, hypertension, status post stent, hypercholesterolemia, and history of suspected COPD admitted to the hospital with acute and elevated blood pressure. no significant symptoms. Labs reviewed Continue to monitor the blood pressure. Nephrology evaluation. DVT and GI prophylaxis. Normal stress test ECHO: Normal EF Objective - Vital Signs/Intake and Output Vital Signs (last 24 hours): Temp Pulse Resp BP Pulse Ox 97.4 F L 82 20 138/70 98 06/17/18 18:36 06/17/18 18:36 06/17/18 18:36 06/17/18 18:36 06/17/18 18:36 - Medications Medications: Current Medications Acetaminophen/Codeine Phosphate (Tylenol/Codeine 300 Mg/30 Mg) 1 ea PO Q6 PRN PRN Reason: Pain, moderate (4-7) Amlodipine Besylate (Norvasc) 10 mg PO DAILY [facility] Last Admin: 06/17/18 14:39 Dose: 10 mg Aspirin (Ecotrin) 81 mg PO DAILY [facility] Last Admin: 06/17/18 14:38 Dose: 81 mg Chlorthalidone (Hygroton) 25 mg PO DAILY [facility] Last Admin: 06/17/18 14:40 Dose: Not Given Clopidogrel Bisulfate (Plavix) 75 mg PO DAILY [facility] Last Admin: 06/17/18 14:39 Dose: 75 mg Enoxaparin Sodium (Lovenox) 40 mg SC DAILY [facility] Last Admin: 06/17/18 14:40 Dose: 40 mg Ergocalciferol (Drisdol 50,000 Intl Units Cap) 1 cap PO QWK [facility] Famotidine (Pepcid) 20 mg PO HS [facility] Last Admin: 06/17/18 21:29 Dose: 20 mg Fluticasone/Vilanterol (Breo Ellipta 100-25 Mcg Inh) 1 puff INH RQ24 [facility] Hydralazine HCl (Apresoline) 25 mg PO Q4 PRN PRN Reason: Other Hydralazine HCl (Apresoline) 100 mg PO BID [facility] Last Admin: 06/17/18 17:45 Dose: 100 mg Loratadine (Claritin) 10 mg PO DAILY [facility] Stop: 06/21/18 10:01 Last Admin: 06/17/18 14:38 Dose: 10 mg Losartan Potassium (Cozaar) 100 mg PO DAILY [facility] Last Admin: 06/17/18 14:39 Dose: 100 mg Metoprolol Succinate (Toprol Xl) 100 mg PO DAILY [facility] Last Admin: 06/17/18 14:39 Dose: 100 mg Rosuvastatin Calcium (Crestor) 20 mg PO HS [facility] Last Admin: 06/17/18 21:29 Dose: 20 mg Tiotropium [place] (Spiriva Inhalation Handihaler Device) 1 inhaler INH RQD [facility] Tiotropium [place] (Spiriva) 18 mcg INH RQ24 [facility] Last Admin: 06/17/18 09:33 Dose: Not Given - Labs Labs: 06/17/18 06:02 06/17/18 06:02
--- NOTE | 2018-06-18 07:41 | CARD ---
APPROVED REPORT Date of service: 06/17/2018 Protocol: LEXISCAN Test Type: LEXISCAN STRESS Test Indications: HTN Medical History: CP Target HR: 148 bpm Resting ECG: NSR WITH T WAVE INVERSION V4-V6 Resting Heart Rate: 77 bpm Resting Blood Pressure: 160/80mmHg submaximum (85%): 126 bpm TEST SUMMARY [id number].[id number]/80.1. INFUSIONDOSE 100:300.00.01.067/.1. [id number]/80.0. PROCEDURE Pharmacologic stress testing was performed using 0.4mg per 5ml of regadenoson given intravenously over 7-10 seconds. POST EXERCISE Reason for Termination: COMPLETED Protocol Completed Target HR: No Max HR: 67 bpm 68% of Maximum Predicted HR: 148 bpm Exercise duration: 00:30 min:sec, 0 Stage Exercise capacity: 1.0METs Max Blood Pressure: 160/80mmHg Blood Pressure response to exercise: normal resting BP - appropriate response Heart Rate response to exercise: appropriate Chest Pain: No, none Angina index: 0 Arrhythmia: No, none ST Change: No, none Deviation: 0 mm INTERPRETATION Stress EKG Conclusion: NEGATIVE LEXISCAN STRESS TEST NORMAL BP RESPONSE TO LEXISCAN NUCLEAR STUDIES TO BE READ SEPARATELY EXAM: Myocardial Perfusion STRESS/REST Imaging Protocol The imaging protocol used to acquire images was Stress Tc-99m/rest Tc-99m 1 day Stress Spect myocardial perfusion imaging was performed in supine position 41 minutes following the injection of 13.1 mCi of Tc-99 Myoview. Gated Rest Spect was performed 45 minutes after intravenous 32.4 mCi Tc-99 Myoview injection. The images were gated to evaluate regional wall motion and calculate ventricular ejection fraction.Images were reconstructed using backfilter projection method in short horizontal and verticle long axis. Spect slices were generated. RESTING DATA EDV80.03dvSK0.60L/min ESV24.00mlMyocardial Mfct467.00g Av. Heart Rate83.00bpm EF70.00% STRESS DATA EDV88.25reIK6.70L/min ESV27.00mlMyocardial Qwod852.00g EF69.00% Regional WT score at stress:3.00 Regional WM score at stress:0.00 Summed WT score at stress:21.00 Av. Heart Rate78.00bpmSummed WM score at stress:3.00 LV Perf. Quant 17 Seg. SSS1.00 17 Seg. SRS0.00 17 Seg. SDS1.00 Stress Defect Extent (% LAD)0.00Rest Defect Extent (% LAD)0.00Rev. Defect Extent (% LAD)0.00 Stress Defect Extent (% LCX)0.00Rest Defect Extent (% LCX)0.00Rev. Defect Extent (% LCX)0.00 Stress Defect Extent (% RCA)0.00Rest Defect Extent (% RCA)0.00Rev. Defect Extent (% RCA)0.00 Stress Defect Extent (% LONNIE)0.00Rest Defect Extent (% LONNIE)0.00Rev. Defect Extent (% LONNIE)0.00 IMPRESSION Normal Myocardial Perfusion exercise stress study Left Ventricle LV Function:Left ventricle systolic function is normal. The Ejection Fraction is 65-70%. Regional Wall Motion:No regional wall motion abnormalities noted. Metabolism/Perfusion There are no defects. There are no perfusion/metabolism defects. Conclusion 1. There is no stress-induced ischemia noted. 2. Left ventricle systolic function is normal. 3. The Ejection Fraction is 65-70%.
[2018-06-18] MEDS: Metoprolol Succinate 100 mg XL Tab PO SCH (10:56)
[2018-06-18] MEDS: Enoxaparin 40 mg Syringe SC SCH (10:58)
--- NOTE | 2018-06-18 11:16 | CP.PCM.PN ---
Subjective - Date & Time of Evaluation Date of Evaluation: 06/18/18 Time of Evaluation: 11:15 - Subjective Subjective: Nephrology Consultation Note: Assessment: Stable uncontrolled severe HTN with urgency CAD s/p stent and hyperlipidemia Vit d deficiency osteoarthritis s/p Rt TKR LVH COPD Plan No acute need for renal replacement therapy at this time. Hypertension control with meds as ordered. Maintain hemodynamics stable. Avoid hypotension. Patient on losartan 100 mg/d. also on toprol XL. resume CCB as norvasc 10 mg/d. add thiazide diuretic as chlorthalidone 25 mg/d. in addition will give prn hydralazine. hydralazine 100 mg bid Monitor Input/Output, daily weights and renal function with basic metabolic panel supplement lytes as needed claritin for few days Check UA, urine spot protein/creatinine, albumin/creatinine ratio, urine Na Secondary HTN work up with plasma renin/aldosterone, plasma metanephrine and renal artery Doppler to r/o renal artery stenosis, TSH, Vit D level Dose meds/antibiotics (if needed) for GFR>60 Glycemic control. Further work up/management as per primary team Thanks for allowing me to participate in care of your patient. Will follow patient with you. Please call if any Qs. had d/w team Dr Juan J De Paz Office: [phone] Chief Complaint; high BP Reason for consult: HTN urgency HPI: Pt is a 73 F with hx of hypertension (40 years) CAD s/p stent, COPD, osteoarthritis s/p Rt TKR and hyperlipidemia presented with complaints of BP in 220 range hence admitted with HTN urgency. Denies OTC/herbal meds or NSAIDs No recent iodinated contrast exposure. pt says BP has been high for last few months. has been better controlled prior to that denies smoking/etoh/drugs/nsaids/decongestants as sudafed/otc meds/licorice has allergic nasal congestion. she feels in usual health otherwis ROS: has nasal congestion and sneezing but better with claritin. febrile yesterday. today better Cardiovascular: No chest pain. Pulmonary: No shortness of breath Gastrointestinal: denies abdominal pain No nausea. No vomiting. Genitourinary: No pain while urinating. Denies blood in urine. All other negative except as mentioned in HPI. Physical Examination: General Appearance: Comfortable, in no acute respiratory distress, co-operative . Vitals reviewed and noted as below Head; Atraumatic, normocephalic ENT: no ulcers no thrush. Tongue is midline. Oropharynx: no rash or ulcers. EYES: Pupils are equal, round and reactive to light accommodation. Eye muscles and extraocular movement intact. Sclera is anicteric. Neck; supple no lymphadenopathy, no thyromegaly or bruit Lungs: Normal respiratory rate/effort. Breath sounds bilateral equal and clear Heart: Normal rate. s1s2 normal. No rub or gallop. Extremities: no edema. No varicose veins Neurological: Patient is alert, awake and oriented to person, place and time. No focal deficit. Strength bilateral appropriate and equal Skin: Warm and dry. Normal turgor. No rash. Palpitation: Normal elasticity for age Abdomen: Abdomen is soft. Bowel sounds +. There is no abdominal tenderness, no guarding/rigidity no organomegaly Psych: normal insight and normal affect/mood MSK: no joint tenderness or swelling. Digits and nails normal, no deformity : kidney or bladder not palpable Labs/imaging reviewed. Past medical history, past surgical history, family history, social history, allergy reviewed and noted as below Family hx: no hx of CKD. Rest non-contributory echo: mild concentric LVH renal imaging 2018 WNL including adrenals Objective - Vital Signs/Intake and Output Vital Signs (last 24 hours): Temp Pulse Resp BP Pulse Ox 98.8 F 79 18 134/73 96 06/18/18 07:00 06/18/18 07:00 06/18/18 07:00 06/18/18 07:00 06/18/18 07:00 Intake and Output: 06/18/18 06/18/18 06:59 18:59 Intake Total 320 Balance 320 - Medications Medications: Current Medications Acetaminophen/Codeine Phosphate (Tylenol/Codeine 300 Mg/30 Mg) 1 ea PO Q6 PRN PRN Reason: Pain, moderate (4-7) Amlodipine Besylate (Norvasc) 10 mg PO DAILY [facility] Last Admin: 06/18/18 10:56 Dose: 10 mg Aspirin (Ecotrin) 81 mg PO DAILY [facility] Last Admin: 06/18/18 10:55 Dose: 81 mg Azithromycin (Zithromax) 250 mg PO DAILY [facility]; Protocol Last Admin: 06/18/18 10:56 Dose: 250 mg Chlorthalidone (Hygroton) 25 mg PO DAILY [facility] Last Admin: 06/18/18 10:55 Dose: 25 mg Clopidogrel Bisulfate (Plavix) 75 mg PO DAILY [facility] Last Admin: 06/18/18 10:56 Dose: 75 mg Enoxaparin Sodium (Lovenox) 40 mg SC DAILY [facility] Last Admin: 06/18/18 10:58 Dose: 40 mg Ergocalciferol (Drisdol 50,000 Intl Units Cap) 1 cap PO QWK [facility] Famotidine (Pepcid) 20 mg PO HS [facility] Last Admin: 06/17/18 21:29 Dose: 20 mg Fluticasone/Vilanterol (Breo Ellipta 100-25 Mcg Inh) 1 puff INH RQ24 [facility] Hydralazine HCl (Apresoline) 25 mg PO Q4 PRN PRN Reason: Other Hydralazine HCl (Apresoline) 100 mg PO BID [facility] Last Admin: 06/18/18 10:57 Dose: 100 mg Loratadine (Claritin) 10 mg PO DAILY [facility] Stop: 06/21/18 10:01 Last Admin: 06/18/18 10:58 Dose: 10 mg Losartan Potassium (Cozaar) 100 mg PO DAILY [facility] Last Admin: 06/18/18 10:55 Dose: 100 mg Metoprolol Succinate (Toprol Xl) 100 mg PO DAILY [facility] Last Admin: 06/18/18 10:56 Dose: 100 mg Rosuvastatin Calcium (Crestor) 20 mg PO HS [facility] Last Admin: 06/17/18 21:29 Dose: 20 mg Tiotropium [place] (Spiriva Inhalation Handihaler Device) 1 inhaler INH RQD [facility] Tiotropium [place] (Spiriva) 18 mcg INH RQ24 [facility] Last Admin: 06/17/18 09:33 Dose: Not Given - Labs Labs: 06/17/18 06:02 06/17/18 06:02
--- NOTE | 2018-06-18 11:36 | RAD ---
Date of service: 06/18/2018 HISTORY: fever COMPARISON: 05/15/2017 at 10:20 hours TECHNIQUE: Chest PA and lateral views FINDINGS: LUNGS: Lung volumes are increased since prior exam. Based on current exam COPD is suspect. Left apical granuloma and/or calcified pleural plaque unchanged. PLEURA: No significant pleural effusion identified. No pneumothorax apparent. CARDIOVASCULAR: No aortic atherosclerotic calcification present. Possible left coronary artery calcifications. Normal cardiac size. No pulmonary vascular congestion. OSSEOUS STRUCTURES: Mild thoraco lumbar spondylosis. Leftward thoraco lumbar convexity. VISUALIZED UPPER ABDOMEN: Normal. OTHER FINDINGS: None. IMPRESSION: No interval pathology noted. Other findings as above.
[2018-06-18] MEDS ORDERED: Aluminum Hydroxide/Magnesium Hydroxide Susp (30 mL) PO ONE (12:00)
--- NOTE | 2018-06-18 12:53 | VASCLAB ---
Date of service: 06/18/2018 PROCEDURE: Ultrasonography renal arterial evaluation HISTORY: COMPARISON: None available. TECHNIQUE: Real-time ultrasonography evaluation of the renal arteries were performed. Comparison is made to the aorta. Report prepared by RYAN Glover, RVT FINDINGS: AORTA: Patent. Peak systolic velocity 123 centimeters/second RIGHT RENAL ARTERY: Renal artery to aorta ratio: 1.2 * Proximal segment: Patent. Peak systolic velocity 114 centimeters/second * Mid segment: Patent. Peak systolic velocity 118 centimeters/second * Distal segment: Patent. Peak systolic velocity 142 centimeters/second Other findings: Right Kidney measures approximately 10.99 centimeters. LEFT RENAL ARTERY: Renal artery to aorta ratio: 0.7 * Proximal segment: Patent. Peak systolic velocity 81 centimeters/second * Mid segment: Patent. Peak systolic velocity 56 centimeters/second * Distal segment: Patent. Peak systolic velocity 55 centimeters/second Other findings: Left Kidney measures approximately 9.63 centimeters. IMPRESSION: No definite hemodynamically significant stenosis involving the renal arteries as visualized.
--- NOTE | 2018-06-18 22:31 | CP.PCM.PN ---
Subjective - Date & Time of Evaluation Date of Evaluation: 06/18/18 Time of Evaluation: 22:31 Objective - Vital Signs/Intake and Output Vital Signs (last 24 hours): Temp Pulse Resp BP Pulse Ox 100.3 F H 76 18 136/72 95 06/18/18 15:32 06/18/18 15:32 06/18/18 15:32 06/18/18 15:32 06/18/18 15:32 - Medications Medications: Current Medications Acetaminophen/Codeine Phosphate (Tylenol/Codeine 300 Mg/30 Mg) 1 ea PO Q6 PRN PRN Reason: Pain, moderate (4-7) Last Admin: 06/18/18 21:20 Dose: 1 ea Amlodipine Besylate (Norvasc) 10 mg PO DAILY [facility] [place] Last Admin: 06/18/18 10:56 Dose: 10 mg Aspirin (Ecotrin) 81 mg PO DAILY [facility] Last Admin: 06/18/18 10:55 Dose: 81 mg Azithromycin (Zithromax) 250 mg PO DAILY [facility]; Protocol Last Admin: 06/18/18 10:56 Dose: 250 mg Chlorthalidone (Hygroton) 25 mg PO DAILY [facility] [place] Last Admin: 06/18/18 10:55 Dose: 25 mg Clopidogrel Bisulfate (Plavix) 75 mg PO DAILY [facility] [place] Last Admin: 06/18/18 10:56 Dose: 75 mg Enoxaparin Sodium (Lovenox) 40 mg SC DAILY [facility] [place] Last Admin: 06/18/18 10:58 Dose: 40 mg Ergocalciferol (Drisdol 50,000 Intl Units Cap) 1 cap PO QWK [facility] [place] Famotidine (Pepcid) 20 mg PO HS [facility] Last Admin: 06/18/18 21:20 Dose: 20 mg Fluticasone/Vilanterol (Breo Ellipta 100-25 Mcg Inh) 1 puff INH RQ24 [facility] [place] Hydralazine HCl (Apresoline) 25 mg PO Q4 PRN PRN Reason: Other Hydralazine HCl (Apresoline) 100 mg PO BID [facility] [place] Last Admin: 06/18/18 17:27 Dose: 100 mg Loratadine (Claritin) 10 mg PO DAILY [facility] Stop: 06/21/18 10:01 Last Admin: 06/18/18 10:58 Dose: 10 mg Losartan Potassium (Cozaar) 100 mg PO DAILY [facility] Last Admin: 06/18/18 10:55 Dose: 100 mg Metoprolol Succinate (Toprol Xl) 100 mg PO DAILY [facility] Last Admin: 06/18/18 10:56 Dose: 100 mg Rosuvastatin Calcium (Crestor) 20 mg PO HS [facility] [place] Last Admin: 06/18/18 21:20 Dose: 20 mg Tiotropium [place] (Spiriva Inhalation Handihaler Device) 1 inhaler INH RQD [facility] Tiotropium [place] (Spiriva) 18 mcg INH RQ24 [facility] Last Admin: 06/17/18 09:33 Dose: Not Given - Labs Labs: 06/17/18 06:02 06/17/18 06:02
--- NOTE | 2018-06-18 22:35 | CP.PCM.PN ---
Subjective - Date & Time of Evaluation Date of Evaluation: 06/18/18 Time of Evaluation: 22:35 Objective - Vital Signs/Intake and Output Vital Signs (last 24 hours): Temp Pulse Resp BP Pulse Ox 100.3 F H 76 18 136/72 95 06/18/18 15:32 06/18/18 15:32 06/18/18 15:32 06/18/18 15:32 06/18/18 15:32 - Medications Medications: Current Medications Acetaminophen/Codeine Phosphate (Tylenol/Codeine 300 Mg/30 Mg) 1 ea PO Q6 PRN PRN Reason: Pain, moderate (4-7) Last Admin: 06/18/18 21:20 Dose: 1 ea Amlodipine Besylate (Norvasc) 10 mg PO DAILY [facility] Last Admin: 06/18/18 10:56 Dose: 10 mg Aspirin (Ecotrin) 81 mg PO DAILY [facility] Last Admin: 06/18/18 10:55 Dose: 81 mg Azithromycin (Zithromax) 250 mg PO DAILY [facility]; Protocol Last Admin: 06/18/18 10:56 Dose: 250 mg Chlorthalidone (Hygroton) 25 mg PO DAILY [facility] Last Admin: 06/18/18 10:55 Dose: 25 mg Clopidogrel Bisulfate (Plavix) 75 mg PO DAILY [facility] Last Admin: 06/18/18 10:56 Dose: 75 mg Enoxaparin Sodium (Lovenox) 40 mg SC DAILY [facility] Last Admin: 06/18/18 10:58 Dose: 40 mg Ergocalciferol (Drisdol 50,000 Intl Units Cap) 1 cap PO QWK [facility] Famotidine (Pepcid) 20 mg PO HS [facility] Last Admin: 06/18/18 21:20 Dose: 20 mg Fluticasone/Vilanterol (Breo Ellipta 100-25 Mcg Inh) 1 puff INH RQ24 [facility] Hydralazine HCl (Apresoline) 25 mg PO Q4 PRN PRN Reason: Other Hydralazine HCl (Apresoline) 100 mg PO BID [facility] Last Admin: 06/18/18 17:27 Dose: 100 mg Loratadine (Claritin) 10 mg PO DAILY [facility] Stop: 06/21/18 10:01 Last Admin: 06/18/18 10:58 Dose: 10 mg Losartan Potassium (Cozaar) 100 mg PO DAILY [facility] Last Admin: 06/18/18 10:55 Dose: 100 mg Metoprolol Succinate (Toprol Xl) 100 mg PO DAILY [facility] Last Admin: 06/18/18 10:56 Dose: 100 mg Rosuvastatin Calcium (Crestor) 20 mg PO HS [facility] Last Admin: 06/18/18 21:20 Dose: 20 mg Tiotropium [place] (Spiriva Inhalation Handihaler Device) 1 inhaler INH RQD [facility] Tiotropium [place] (Spiriva) 18 mcg INH RQ24 [facility] Last Admin: 06/17/18 09:33 Dose: Not Given - Labs Labs: 06/17/18 06:02 06/17/18 06:02
--- NOTE | 2018-06-19 06:20 | CP.PCM.PN ---
Subjective - Date & Time of Evaluation Date of Evaluation: 06/18/18 Time of Evaluation: 16:20 - Subjective Subjective: Patient seen and evaluated denies chest pain and dyspnea Stress test normal ECHO with normal EF Objective - Vital Signs/Intake and Output Vital Signs (last 24 hours): Temp Pulse Resp BP Pulse Ox 100.3 F H 74 20 127/70 96 06/19/18 05:05 06/19/18 05:05 06/19/18 05:05 06/19/18 05:05 06/19/18 05:05 Intake and Output: 06/18/18 06/19/18 18:59 06:59 Intake Total 480 Balance 480 - Medications Medications: Current Medications Acetaminophen/Codeine Phosphate (Tylenol/Codeine 300 Mg/30 Mg) 1 ea PO Q6 PRN PRN Reason: Pain, moderate (4-7) Last Admin: 06/18/18 21:20 Dose: 1 ea Amlodipine Besylate (Norvasc) 10 mg PO DAILY [facility] Last Admin: 06/18/18 10:56 Dose: 10 mg Aspirin (Ecotrin) 81 mg PO DAILY [facility] Last Admin: 06/18/18 10:55 Dose: 81 mg Azithromycin (Zithromax) 250 mg PO DAILY [facility]; Protocol Last Admin: 06/18/18 10:56 Dose: 250 mg Chlorthalidone (Hygroton) 25 mg PO DAILY [facility] Last Admin: 06/18/18 10:55 Dose: 25 mg Clopidogrel Bisulfate (Plavix) 75 mg PO DAILY [facility] Last Admin: 06/18/18 10:56 Dose: 75 mg Enoxaparin Sodium (Lovenox) 40 mg SC DAILY [facility] Last Admin: 06/18/18 10:58 Dose: 40 mg Ergocalciferol (Drisdol 50,000 Intl Units Cap) 1 cap PO QWK [facility] Famotidine (Pepcid) 20 mg PO HS [facility] Last Admin: 06/18/18 21:20 Dose: 20 mg Fluticasone/Vilanterol (Breo Ellipta 100-25 Mcg Inh) 1 puff INH RQ24 [facility] Hydralazine HCl (Apresoline) 25 mg PO Q4 PRN PRN Reason: Other Hydralazine HCl (Apresoline) 100 mg PO BID [facility] Last Admin: 06/18/18 17:27 Dose: 100 mg Loratadine (Claritin) 10 mg PO DAILY [facility] Stop: 06/21/18 10:01 Last Admin: 06/18/18 10:58 Dose: 10 mg Losartan Potassium (Cozaar) 100 mg PO DAILY [facility] Last Admin: 06/18/18 10:55 Dose: 100 mg Metoprolol Succinate (Toprol Xl) 100 mg PO DAILY [facility] Last Admin: 06/18/18 10:56 Dose: 100 mg Rosuvastatin Calcium (Crestor) 20 mg PO HS [facility] Last Admin: 06/18/18 21:20 Dose: 20 mg Tiotropium [place] (Spiriva Inhalation Handihaler Device) 1 inhaler INH RQD [facility] Tiotropium [place] (Spiriva) 18 mcg INH RQ24 [facility] Last Admin: 06/17/18 09:33 Dose: Not Given - Labs Labs: 06/17/18 06:02 06/17/18 06:02
[2018-06-19 06:30] LABS: ALB/GLOB RATIO 1.3 (1.0-2.1); ALBUMIN 3.3 g/dL (3.5-5.0); ALT/SGPT < 6 U/L (9-52); AST/SGOT 23 U/L (14-36); BLOOD UREA NITROGEN 32 mg/dL (7-17); CALCIUM 8.7 mg/dl (8.6-10.4); GFR NON-AFRICAN AMERICAN 34
[2018-06-19 07:11] LABS: BASO % 0.8 % (0.0-2.0); EOS # 0.1 K/uL (0.0-0.7); EOS % 1.4 % (0.0-4.0); HEMOGLOBIN 13.1 g/dL (11.0-16.0); LYMPH # 2.1 K/uL (1.0-4.3); MEAN CELL VOLUME 85.4 fL (81.0-99.0); MEAN CORPUSCULAR HEMOGLOBIN 28.3 pg (27.0-31.0); MEAN CORPUSCULAR HGB CONC 33.1 g/dL (33.0-37.0); MONO # 0.7 K/uL (0.0-0.8); MONO % 16.1 % (0.0-10.0); NEUT # 1.3 K/uL (1.8-7.0); NEUT % 30.7 % (50.0-75.0); NRBC % 0.1 % (0.0-2.0); RBC 4.62 Mil/uL (3.80-5.20); RED CELL DISTRIBUTION WIDTH 14.9 % (11.5-14.5); WHITE BLOOD COUNT 4.1 K/uL (4.8-10.8)
[2018-06-19] MEDS: Metoprolol Succinate 100 mg XL Tab PO SCH (09:23)
[2018-06-19] MEDS: Enoxaparin 40 mg Syringe SC SCH (09:23)
[2018-06-19] MEDS: Tiotropium 18 mcg Cap For Inhalation INH SCH (10:34)
--- NOTE | 2018-06-19 11:30 | CP.PCM.PN ---
<Belem Castro - Last Filed: 06/19/18 16:53> Subjective - Date & Time of Evaluation Date of Evaluation: 06/19/18 Time of Evaluation: 11:27 - Subjective Subjective: Progress note for Dr. Blanton Patient was seen and examined at bedside in no acute distress. She has no complaints today and reports feeling well. She denies chest pain, palpitations, shortness of breath, vision changes, dizziness, headaches, n/v, abdominal pain, dysuria, constipation, and diarrhea. Objective - Vital Signs/Intake and Output Vital Signs (last 24 hours): Temp Pulse Resp BP Pulse Ox 99.9 F H 76 20 146/70 97 06/19/18 07:00 06/19/18 07:00 06/19/18 07:00 06/19/18 07:00 06/19/18 07:00 Intake and Output: 06/19/18 06/19/18 06:59 18:59 Intake Total 480 Balance 480 - Medications Medications: Current Medications Acetaminophen/Codeine Phosphate (Tylenol/Codeine 300 Mg/30 Mg) 1 ea PO Q6 PRN PRN Reason: Pain, moderate (4-7) Last Admin: 06/18/18 21:20 Dose: 1 ea Amlodipine Besylate (Norvasc) 10 mg PO DAILY [facility] Last Admin: 06/19/18 09:24 Dose: 10 mg Aspirin (Ecotrin) 81 mg PO DAILY [facility] Last Admin: 06/19/18 09:24 Dose: 81 mg Azithromycin (Zithromax) 250 mg PO DAILY [facility]; Protocol Last Admin: 06/19/18 09:24 Dose: 250 mg Chlorthalidone (Hygroton) 25 mg PO DAILY [facility] Last Admin: 06/19/18 09:23 Dose: 25 mg Clopidogrel Bisulfate (Plavix) 75 mg PO DAILY [facility] Last Admin: 06/19/18 09:23 Dose: 75 mg Enoxaparin Sodium (Lovenox) 40 mg SC DAILY [facility] Last Admin: 06/19/18 09:23 Dose: 40 mg Ergocalciferol (Drisdol 50,000 Intl Units Cap) 1 cap PO QWK [facility] Famotidine (Pepcid) 20 mg PO HS [facility] Last Admin: 06/18/18 21:20 Dose: 20 mg Fluticasone/Vilanterol (Breo Ellipta 100-25 Mcg Inh) 1 puff INH RQ24 [facility] Hydralazine HCl (Apresoline) 25 mg PO Q4 PRN PRN Reason: Other Hydralazine HCl (Apresoline) 100 mg PO BID [facility] Last Admin: 06/19/18 09:23 Dose: 100 mg Loratadine (Claritin) 10 mg PO DAILY [facility] Stop: 06/21/18 10:01 Last Admin: 06/19/18 09:23 Dose: 10 mg Losartan Potassium (Cozaar) 100 mg PO DAILY [facility] Last Admin: 06/19/18 09:23 Dose: 100 mg Metoprolol Succinate (Toprol Xl) 100 mg PO DAILY [facility] Last Admin: 06/19/18 09:23 Dose: 100 mg Rosuvastatin Calcium (Crestor) 20 mg PO HS [facility] Last Admin: 06/18/18 21:20 Dose: 20 mg Tiotropium [place] (Spiriva Inhalation Handihaler Device) 1 inhaler INH RQD [facility] Tiotropium [place] (Spiriva) 18 mcg INH RQ24 [facility] Last Admin: 06/19/18 10:34 Dose: Not Given - Labs Labs: 06/19/18 06:04 06/19/18 06:04 - Constitutional Appears: Well, No Acute Distress - Head Exam Head Exam: ATRAUMATIC, NORMAL INSPECTION - Eye Exam Eye Exam: EOMI, Normal appearance - ENT Exam ENT Exam: Mucous Membranes Moist - Respiratory Exam Respiratory Exam: Clear to Ausculation Bilateral, NORMAL BREATHING PATTERN. absent: Rales, Rhonchi, Wheezes - Cardiovascular Exam Cardiovascular Exam: REGULAR RHYTHM, +S1, +S2 - GI/Abdominal Exam GI & Abdominal Exam: Soft, Normal Bowel Sounds. absent: Distended, Firm, Guarding, Tenderness - Extremities Exam Extremities Exam: absent: Pedal Edema - Neurological Exam Neurological Exam: Alert, Awake, Oriented x3 - Psychiatric Exam Psychiatric exam: Normal Affect, Normal Mood - Skin Skin Exam: Dry, Normal Color, Warm Assessment and Plan - Assessment and Plan (Free Text) Plan: 73 year old female with a history of uncontrolled HTN, CAD w/stent, HLD, who presented to the hospital for hypertensive urgency. Uncontrolled Hypertension Hypertensive Urgency - Continue Losartan 100mg PO daily, Metoprolol 100mg daily, Norvasc 10mg daily, hydralazine 100mg BID, and chlorthalidone 25mg daily - Continue ASA 81mg PO daily and Crestor 20mg PO HS - Stress test: no stress-induced ischemia; LV systolic function is normal, EF 65-70% - Echo: EF 55%, otherwise normal echo - EKG: NSR @60bpm; Possible LA enlargement; T wave abnormality - Nephrology consulted for refractory hypertension; Dr. De Paz, help appreciated. Case discussed with Dr. Harvinder Swenson, PGY2 <Kelvin Blanton - Last Filed: 06/19/18 23:19> Objective - Vital Signs/Intake and Output Vital Signs (last 24 hours): Temp Pulse Resp BP Pulse Ox 98.6 F 70 20 120/62 98 06/19/18 15:43 06/19/18 15:43 06/19/18 15:43 06/19/18 15:43 06/19/18 15:43 Intake and Output: 06/19/18 06/20/18 18:59 06:59 Intake Total 400 Balance 400 - Medications Medications: Current Medications Acetaminophen/Codeine Phosphate (Tylenol/Codeine 300 Mg/30 Mg) 1 ea PO Q6 PRN PRN Reason: Pain, moderate (4-7) Last Admin: 06/18/18 21:20 Dose: 1 ea Amlodipine Besylate (Norvasc) 10 mg PO DAILY [facility] Last Admin: 06/19/18 09:24 Dose: 10 mg Aspirin (Ecotrin) 81 mg PO DAILY [facility] Last Admin: 06/19/18 09:24 Dose: 81 mg Chlorthalidone (Hygroton) 25 mg PO DAILY [facility] Clopidogrel Bisulfate (Plavix) 75 mg PO DAILY [facility] Last Admin: 06/19/18 09:23 Dose: 75 mg Enoxaparin Sodium (Lovenox) 40 mg SC DAILY [facility] Last Admin: 06/19/18 09:23 Dose: 40 mg Ergocalciferol (Drisdol 50,000 Intl Units Cap) 1 cap PO QWK [facility] Famotidine (Pepcid) 20 mg PO HS [facility] Last Admin: 06/19/18 21:46 Dose: 20 mg Fluticasone/Vilanterol (Breo Ellipta 100-25 Mcg Inh) 1 puff INH RQ24 [facility] Hydralazine HCl (Apresoline) 25 mg PO Q4 PRN PRN Reason: Other Hydralazine HCl (Apresoline) 100 mg PO BID [facility] Last Admin: 06/19/18 18:09 Dose: 100 mg Loratadine (Claritin) 10 mg PO DAILY [facility] Stop: 06/21/18 10:01 Last Admin: 06/19/18 09:23 Dose: 10 mg Losartan Potassium (Cozaar) 100 mg PO DAILY [facility] Last Admin: 06/19/18 09:23 Dose: 100 mg Metoprolol Succinate (Toprol Xl) 100 mg PO DAILY [facility] Last Admin: 06/19/18 09:23 Dose: 100 mg Rosuvastatin Calcium (Crestor) 20 mg PO [facility] Last Admin: 06/19/18 21:46 Dose: 20 mg Tiotropium [place] (Spiriva Inhalation Handihaler Device) 1 inhaler INH RQD [facility] Tiotropium [place] (Spiriva) 18 mcg INH RQ24 [facility] Last Admin: 06/19/18 10:34 Dose: Not Given - Labs Labs: 06/19/18 06:04 06/19/18 06:04 Assessment and Plan - Assessment and Plan (Free Text) Plan: Patient seen and evaluated personally by me. Plan of care d/w the medical policy specialist and as documented
[2018-06-19 14:40] LABS: SQUAMOUS EPITHIAL 1 /hpf (0-5); URINE BILIRUBIN NEGATIVE (NEGATIVE); URINE BLOOD NEGATIVE (NEGATIVE); URINE CLARITY Clear (Clear); URINE COLOR Yellow (YELLOW); URINE GLUCOSE (UA) NORMAL (Normal); URINE HYALINE CAST 0-2 /lpf (0-2); URINE LEUKOCYTE ESTERASE NEG Leu/uL (Negative); URINE PROTEIN 1+ mg/dL (NEGATIVE); URINE UROBILINOGEN NORMAL mg/dL (0.2-1.0)
[2018-06-19 16:24] LABS: ALDO/PRA RATIO 23.8 Ratio (0.9-28.9)
--- NOTE | 2018-06-19 17:29 | CP.PCM.PN ---
Subjective - Date & Time of Evaluation Date of Evaluation: 06/19/18 Time of Evaluation: 17:27 - Subjective Subjective: Nephrology Consultation Note: Assessment: Stable uncontrolled severe HTN with urgency CAD s/p stent and hyperlipidemia Vit d deficiency osteoarthritis s/p Rt TKR LVH COPD with bronchitis MARIBEL Plan No acute need for renal replacement therapy at this time. Hypertension control with meds as ordered. Maintain hemodynamics stable. Avoid hypotension. Patient on losartan 100 mg/d. also on toprol XL. resume CCB as norvasc 10 mg/d. add thiazide diuretic as chlorthalidone 25 mg/d (hold for 2 days as serum cr on high side). in addition will give prn hydralazine. hydralazine 100 mg bid Monitor Input/Output, daily weights and renal function with basic metabolic panel supplement lytes as needed claritin for few days abx per primary team Check UA, urine spot protein/creatinine, albumin/creatinine ratio, urine Na Secondary HTN work up with plasma renin/aldosterone, renal artery Doppler to r/o renal artery stenosis neg. pending metanephrine level Dose meds/antibiotics (if needed) for GFR>60 Glycemic control. Further work up/management as per primary team Thanks for allowing me to participate in care of your patient. Will follow patient with you. Please call if any Qs. had d/w team Dr Juan J De Paz Office: [phone] Chief Complaint; high BP Reason for consult: HTN urgency HPI: Pt is a 73 F with hx of hypertension (40 years) CAD s/p stent, COPD, osteoarthritis s/p Rt TKR and hyperlipidemia presented with complaints of BP in 220 range hence admitted with HTN urgency. Denies OTC/herbal meds or NSAIDs No recent iodinated contrast exposure. pt says BP has been high for last few months. has been better controlled prior to that denies smoking/etoh/drugs/nsaids/decongestants as sudafed/otc meds/licorice has allergic nasal congestion. she feels in usual health otherwis ROS: has nasal congestion and sneezing but better with claritin. febrile yesterday. today better Cardiovascular: No chest pain. Pulmonary: No shortness of breath Gastrointestinal: denies abdominal pain No nausea. No vomiting. Genitourinary: No pain while urinating. Denies blood in urine. All other negative except as mentioned in HPI. Physical Examination: General Appearance: Comfortable, in no acute respiratory distress, co-operative . Vitals reviewed and noted as below Head; Atraumatic, normocephalic ENT: no ulcers no thrush. Tongue is midline. Oropharynx: no rash or ulcers. EYES: Pupils are equal, round and reactive to light accommodation. Eye muscles and extraocular movement intact. Sclera is anicteric. Neck; supple no lymphadenopathy, no thyromegaly or bruit Lungs: Normal respiratory rate/effort. Breath sounds bilateral equal and clear Heart: Normal rate. s1s2 normal. No rub or gallop. Extremities: no edema. No varicose veins Neurological: Patient is alert, awake and oriented to person, place and time. No focal deficit. Strength bilateral appropriate and equal Skin: Warm and dry. Normal turgor. No rash. Palpitation: Normal elasticity for age Abdomen: Abdomen is soft. Bowel sounds +. There is no abdominal tenderness, no guarding/rigidity no organomegaly Psych: normal insight and normal affect/mood MSK: no joint tenderness or swelling. Digits and nails normal, no deformity : kidney or bladder not palpable Labs/imaging reviewed. Past medical history, past surgical history, family history, social history, allergy reviewed and noted as below Family hx: no hx of CKD. Rest non-contributory echo: mild concentric LVH renal imaging 2018 WNL including adrenals shi 5 Objective - Vital Signs/Intake and Output Vital Signs (last 24 hours): Temp Pulse Resp BP Pulse Ox 98.6 F 70 20 120/62 98 06/19/18 15:43 06/19/18 15:43 06/19/18 15:43 06/19/18 15:43 06/19/18 15:43 Intake and Output: 06/19/18 06/19/18 06:59 18:59 Intake Total 480 Balance 480 - Medications Medications: Current Medications Acetaminophen/Codeine Phosphate (Tylenol/Codeine 300 Mg/30 Mg) 1 ea PO Q6 PRN PRN Reason: Pain, moderate (4-7) Last Admin: 06/18/18 21:20 Dose: 1 ea Amlodipine Besylate (Norvasc) 10 mg PO DAILY [facility] Last Admin: 06/19/18 09:24 Dose: 10 mg Aspirin (Ecotrin) 81 mg PO DAILY [facility] Last Admin: 06/19/18 09:24 Dose: 81 mg Azithromycin (Zithromax) 250 mg PO DAILY [facility]; Protocol Last Admin: 06/19/18 09:24 Dose: 250 mg Chlorthalidone (Hygroton) 25 mg PO DAILY [facility] Clopidogrel Bisulfate (Plavix) 75 mg PO DAILY [facility] Last Admin: 06/19/18 09:23 Dose: 75 mg Enoxaparin Sodium (Lovenox) 40 mg SC DAILY [facility] Last Admin: 06/19/18 09:23 Dose: 40 mg Ergocalciferol (Drisdol 50,000 Intl Units Cap) 1 cap PO QWK [facility] Famotidine (Pepcid) 20 mg PO HS [facility] Last Admin: 06/18/18 21:20 Dose: 20 mg Fluticasone/Vilanterol (Breo Ellipta 100-25 Mcg Inh) 1 puff INH RQ24 [facility] Hydralazine HCl (Apresoline) 25 mg PO Q4 PRN PRN Reason: Other Hydralazine HCl (Apresoline) 100 mg PO BID [facility] Last Admin: 06/19/18 09:23 Dose: 100 mg Loratadine (Claritin) 10 mg PO DAILY [facility] Stop: 06/21/18 10:01 Last Admin: 06/19/18 09:23 Dose: 10 mg Losartan Potassium (Cozaar) 100 mg PO DAILY [facility] Last Admin: 06/19/18 09:23 Dose: 100 mg Metoprolol Succinate (Toprol Xl) 100 mg PO DAILY [facility] Last Admin: 06/19/18 09:23 Dose: 100 mg Rosuvastatin Calcium (Crestor) 20 mg PO HS [facility] Last Admin: 06/18/18 21:20 Dose: 20 mg Tiotropium [place] (Spiriva Inhalation Handihaler Device) 1 inhaler INH RQD [facility] Tiotropium [place] (Spiriva) 18 mcg INH RQ24 [facility] Last Admin: 06/19/18 10:34 Dose: Not Given - Labs Labs: 06/19/18 06:04 06/19/18 06:04
--- NOTE | 2018-06-19 21:40 | CP.PCM.PN ---
Subjective - Date & Time of Evaluation Date of Evaluation: 06/19/18 Time of Evaluation: 21:39 - Subjective Subjective: Patient is currently feeling well. Still minimal cough noted, but patient is feeling well at this time, no fever noted today no chest pain or shortness of breath On examination: Vital signs are stable. Blood pressure is much controlled than before. Chest bilateral good air entry no wheezing or rales noted Labs reviewed Awaiting for renal vascular Doppler at this time Assessment and recommendation: 73-year-old female with a history of uncontrolled hypertension improved markedly. Secondary hypertension likely. Osteoarthritis. Pain in the right knee. Acute bronchitis. Patient is clinically stable, but a possible discharge plan tomorrow and will follow the patient Objective - Vital Signs/Intake and Output Vital Signs (last 24 hours): Temp Pulse Resp BP Pulse Ox 98.6 F 70 20 120/62 98 06/19/18 15:43 06/19/18 15:43 06/19/18 15:43 06/19/18 15:43 06/19/18 15:43 - Medications Medications: Current Medications Acetaminophen/Codeine Phosphate (Tylenol/Codeine 300 Mg/30 Mg) 1 ea PO Q6 PRN PRN Reason: Pain, moderate (4-7) Last Admin: 06/18/18 21:20 Dose: 1 ea Amlodipine Besylate (Norvasc) 10 mg PO DAILY [facility] Last Admin: 06/19/18 09:24 Dose: 10 mg Aspirin (Ecotrin) 81 mg PO DAILY [facility] Last Admin: 06/19/18 09:24 Dose: 81 mg Chlorthalidone (Hygroton) 25 mg PO DAILY [facility] Clopidogrel Bisulfate (Plavix) 75 mg PO DAILY [facility] Last Admin: 06/19/18 09:23 Dose: 75 mg Enoxaparin Sodium (Lovenox) 40 mg SC DAILY [facility] Last Admin: 06/19/18 09:23 Dose: 40 mg Ergocalciferol (Drisdol 50,000 Intl Units Cap) 1 cap PO QWK [facility] Famotidine (Pepcid) 20 mg PO HS [facility] Last Admin: 06/18/18 21:20 Dose: 20 mg Fluticasone/Vilanterol (Breo Ellipta 100-25 Mcg Inh) 1 puff INH RQ24 [facility] Hydralazine HCl (Apresoline) 25 mg PO Q4 PRN PRN Reason: Other Hydralazine HCl (Apresoline) 100 mg PO BID [facility] Last Admin: 06/19/18 18:09 Dose: 100 mg Loratadine (Claritin) 10 mg PO DAILY [facility] Stop: 06/21/18 10:01 Last Admin: 06/19/18 09:23 Dose: 10 mg Losartan Potassium (Cozaar) 100 mg PO DAILY [facility] Last Admin: 06/19/18 09:23 Dose: 100 mg Metoprolol Succinate (Toprol Xl) 100 mg PO DAILY [facility] Last Admin: 06/19/18 09:23 Dose: 100 mg Rosuvastatin Calcium (Crestor) 20 mg PO HS [facility] Last Admin: 06/18/18 21:20 Dose: 20 mg Tiotropium [place] (Spiriva Inhalation Handihaler Device) 1 inhaler INH RQD [facility] Tiotropium [place] (Spiriva) 18 mcg INH RQ24 [facility] Last Admin: 06/19/18 10:34 Dose: Not Given - Labs Labs: 06/19/18 06:04 06/19/18 06:04
[2018-06-20] MEDS: Metoprolol Succinate 100 mg XL Tab PO SCH (09:43)
[2018-06-20] MEDS: Enoxaparin 40 mg Syringe SC SCH (10:00)
[2018-06-20] MEDS ORDERED: Ergocalciferol 50,000 Intl Units Cap PO SCH (10:00)
[2018-06-20] MEDS: Tiotropium 18 mcg Cap For Inhalation INH SCH (10:29)
--- NOTE | 2018-06-20 11:06 | CP.PCM.PN ---
Subjective - Date & Time of Evaluation Date of Evaluation: 06/20/18 Time of Evaluation: 11:02 - Subjective Subjective: Nephrology Consultation Note: Assessment: Stable uncontrolled severe HTN with urgency CAD s/p stent and hyperlipidemia Vit d deficiency osteoarthritis s/p Rt TKR LVH COPD with bronchitis MARIBEL Plan No acute need for renal replacement therapy at this time. Hypertension control with meds as ordered. Maintain hemodynamics stable. Avoid hypotension. Patient on losartan 100 mg/d. also on toprol XL. resume CCB as norvasc 10 mg/d. add thiazide diuretic as chlorthalidone 25 mg/d (hold for 2 days as serum cr on high side). in addition will give prn hydralazine. hydralazine 100 mg bid [if covered by insurance; switch losartan + amlodipine + chlorthalidone to Tribenzor 40/10/25 mg 1 tab daily at discharge] Monitor Input/Output, daily weights and renal function with basic metabolic panel supplement lytes as needed claritin for few days abx per primary team Check UA, urine spot protein/creatinine, albumin/creatinine ratio, urine Na Secondary HTN work up with plasma renin/aldosterone, renal artery Doppler to r/o renal artery stenosis neg. pending metanephrine level Dose meds/antibiotics (if needed) for GFR>60 Glycemic control. Further work up/management as per primary team pt stable for d/c from renal perspective when planned with 1 week outpt f/up. pt advised to check BP at home and bring log at each visit along with her meds and BP machine Thanks for allowing me to participate in care of your patient. Will follow patient with you. Please call if any Qs. had d/w team Dr Juan J De Paz Office: [phone] Chief Complaint; high BP Reason for consult: HTN urgency HPI: Pt is a 73 F with hx of hypertension (40 years) CAD s/p stent, COPD, osteoarthritis s/p Rt TKR and hyperlipidemia presented with complaints of BP in 220 range hence admitted with HTN urgency. Denies OTC/herbal meds or NSAIDs No recent iodinated contrast exposure. pt says BP has been high for last few months. has been better controlled prior to that denies smoking/etoh/drugs/nsaids/decongestants as sudafed/otc meds/licorice has allergic nasal congestion. she feels in usual health otherwis ROS: has nasal congestion and sneezing but better with claritin. today better. afebrile now Cardiovascular: No chest pain. Pulmonary: No shortness of breath Gastrointestinal: denies abdominal pain No nausea. No vomiting. Genitourinary: No pain while urinating. Denies blood in urine. All other negative except as mentioned in HPI. Physical Examination: General Appearance: Comfortable, in no acute respiratory distress, co-operative . Vitals reviewed and noted as below Head; Atraumatic, normocephalic ENT: no ulcers no thrush. Tongue is midline. Oropharynx: no rash or ulcers. EYES: Pupils are equal, round and reactive to light accommodation. Eye muscles and extraocular movement intact. Sclera is anicteric. Neck; supple no lymphadenopathy, no thyromegaly or bruit Lungs: Normal respiratory rate/effort. Breath sounds bilateral equal and clear Heart: Normal rate. s1s2 normal. No rub or gallop. Extremities: no edema. No varicose veins Neurological: Patient is alert, awake and oriented to person, place and time. No focal deficit. Strength bilateral appropriate and equal Skin: Warm and dry. Normal turgor. No rash. Palpitation: Normal elasticity for age Abdomen: Abdomen is soft. Bowel sounds +. There is no abdominal tenderness, no guarding/rigidity no organomegaly Psych: normal insight and normal affect/mood MSK: no joint tenderness or swelling. Digits and nails normal, no deformity : kidney or bladder not palpable Labs/imaging reviewed. Past medical history, past surgical history, family history, social history, allergy reviewed and noted as below Family hx: no hx of CKD. Rest non-contributory echo: mild concentric LVH renal imaging 2018 WNL including adrenals shi 5 Objective - Vital Signs/Intake and Output Vital Signs (last 24 hours): Temp Pulse Resp BP Pulse Ox 98.9 F 76 20 149/85 96 06/20/18 07:00 06/20/18 07:00 06/20/18 07:00 06/20/18 07:00 06/20/18 07:00 Intake and Output: 06/20/18 06/20/18 06:59 18:59 Intake Total 400 Balance 400 - Medications Medications: Current Medications Acetaminophen/Codeine Phosphate (Tylenol/Codeine 300 Mg/30 Mg) 1 ea PO Q6 PRN PRN Reason: Pain, moderate (4-7) Last Admin: 06/18/18 21:20 Dose: 1 ea Amlodipine Besylate (Norvasc) 10 mg PO DAILY [facility] Last Admin: 06/20/18 09:43 Dose: 10 mg Aspirin (Ecotrin) 81 mg PO DAILY [facility] Last Admin: 06/20/18 09:42 Dose: 81 mg Chlorthalidone (Hygroton) 25 mg PO DAILY [facility] Clopidogrel Bisulfate (Plavix) 75 mg PO DAILY [facility] Last Admin: 06/20/18 09:42 Dose: 75 mg Enoxaparin Sodium (Lovenox) 40 mg SC DAILY [facility] Last Admin: 06/19/18 09:23 Dose: 40 mg Ergocalciferol (Drisdol 50,000 Intl Units Cap) 1 cap PO QWK [facility] Famotidine (Pepcid) 20 mg PO HS [facility] Last Admin: 06/19/18 21:46 Dose: 20 mg Fluticasone/Vilanterol (Breo Ellipta 100-25 Mcg Inh) 1 puff INH RQ24 [facility] Hydralazine HCl (Apresoline) 25 mg PO Q4 PRN PRN Reason: Other Hydralazine HCl (Apresoline) 100 mg PO BID [facility] Last Admin: 06/20/18 09:41 Dose: 100 mg Loratadine (Claritin) 10 mg PO DAILY [facility] Stop: 06/21/18 10:01 Last Admin: 06/20/18 09:43 Dose: 10 mg Losartan Potassium (Cozaar) 100 mg PO DAILY [facility] Last Admin: 06/20/18 09:42 Dose: 100 mg Metoprolol Succinate (Toprol Xl) 100 mg PO DAILY [facility] Last Admin: 06/20/18 09:43 Dose: 100 mg Rosuvastatin Calcium (Crestor) 20 mg PO HS [facility] Last Admin: 06/19/18 21:46 Dose: 20 mg Tiotropium [place] (Spiriva Inhalation Handihaler Device) 1 inhaler INH RQD [facility] Tiotropium [place] (Spiriva) 18 mcg INH RQ24 [facility] Last Admin: 06/20/18 10:29 Dose: Not Given - Labs Labs: 06/19/18 06:04 06/19/18 06:04
[2018-06-20 17:18] VITALS: BP 142/76; PULSE 63; RESP 18; TEMP 98.1; O2SAT 97
== END 2018-06-20 17:50 | disposition home or self-care (01) | DRG 305 ==
LOC: C.ER 16:44 → C.9E 18:16 → C.6T 19:20 → OBSVTOIN 06-16 18:15
PROVIDERS: ADMIT Internal Medicine; ATTEND Internal Medicine
DX: I16.0 Hypertensive urgency (principal); N17.9 Acute kidney failure, unspecified; J44.0 Chronic obstructive pulmonary disease with (acute) lower respiratory infection; J20.9 Acute bronchitis, unspecified; I10 Essential (primary) hypertension; I25.10 Atherosclerotic heart disease of native coronary artery without angina pectoris; E55.9 Vitamin D deficiency, unspecified; E78.5 Hyperlipidemia, unspecified; K21.9 Gastro-esophageal reflux disease without esophagitis; M19.90 Unspecified osteoarthritis, unspecified site; H57.89 Other specified disorders of eye and adnexa; M25.561 Pain in right knee; E78.00 Pure hypercholesterolemia, unspecified; Z96.651 Presence of right artificial knee joint; Z95.5 Presence of coronary angioplasty implant and graft; Z83.3 Family history of diabetes mellitus